=== PATIENT | female | born 1950 | race Caucasian/White ===

== ENCOUNTER 2020-12-23 11:54 | Emergency (ER) | payer OTHER ==
--- OUTSIDE RECORDS SUMMARY | 2020-12-23 11:57 | XMS REPORT | Continuity of Care Document ---
:1950 Author Organization [facility] t Address [address] [place] [id number] Care Team Providers Name Role Phone Radiology Attending Clinician Unavailable Doctor Unassigned, Name Attending Clinician Unavailable Shahbaz GARCIA Attending Clinician Problems Condition Condition Condition Status Onset Resolution Last Treating Co mments Source Name Details Category Date Date Treatment Clinician Date Abnormal Abnormal Problem [facility] Treva kes - test test Memoria result result l [facility] Chronic Chronic Problem Active [facility] pain pain [facility] - syndrome syndrome Memori a l [facility] Right Right Problem Active [facility] upper upper [facility] - quadrant quadrant Memori a abdominal abdominal l pain pain [facility] Syncope, Syncope, Problem Active [facility] unspecifie unspecifie Treva kes - d syncope d syncope Bruce hardik type type l [facility] Worsening Worsening Problem Active [facility] headaches headaches [facility] - [facility] Forgetfuln Forgetfuln Problem Active [facility] ess ess [facility] Fibromyalg Fibromyalg Problem Active [facility] ia ia [facility] Polyarthra Polyarthra Problem Active [facility] lgia lgia [facility] Seasonal Seasonal Problem Active [facility] allergies allergies [facility] - [facility]oria [facility] Anxiety Anxiety Problem Active [facility] Burping Burping Problem Active [facility] Bloating Bloating Problem [facility] Hypertensi Hypertensi Problem Active [facility] on, on, [facility] - unspecifie unspecifie Me moria d type d type l [facility] Prediabete Prediabete Problem Active [facility] Serum Serum Problem Active [facility] creatinine creatinine Treva kes - raised raised Memoria l [facility]ics Hypothyroi Hypothyroi Problem Active [facility] dism, dism, [facility] - unspecifie unspecifie Me moria d type d type l [facility] Asthma, Asthma, Problem Active [facility] unspecifie unspecifie Treva kes - d asthma d asthma Memori a severity, severity, l unspecifie unspecifie Ou tpati d whether d whether ent complicate complicate Cl inics d, d, unspecifie unspecifie d whether d whether persistent persistent Hyperlipid Hyperlipid Problem Active [facility] emia, emia, [facility] - unspecifie unspecifie Me moria d d l hyperlipid hyperlipid Ou tpati emia type emia type ent Clinics Lightheade Lightheade Problem Active [facility] dness dness [facility] Other Other Problem Active [facility] chronic chronic [facility] - pain pain Memoria l [facility] Low back Low back Problem Active [facility] pain pain [facility] Depression Depression Problem Active [facility] screening screening [facility] - Memoria l [facility] Allergic Allergic Problem Active [facility] rhinitis, rhinitis, [facility] - unspecifie unspecifie Me moria d d l seasonalit seasonalit Ou tpati y, y, ent unspecifie unspecifie Cl inics d trigger d trigger Dystonia Dystonia Problem Active [facility]ics Pain in Pain in Problem Active [facility] right knee right knee Treva kes - [facility]oria [facility] Neck pain Neck pain Problem Active [facility] Pain in Pain in Problem Active [facility] left hip left hip [facility] Pain in Pain in Problem Active [facility] left knee left knee [facility] - Memoria l [facility] Pain in Pain in Problem Active [facility] right hip right hip [facility] - Memoria l [facility] Pain in Pain in Problem Active [facility] thoracic thoracic [facility] - spine spine Memoria l [facility] Allergies, Adverse Reactions, Alerts Allergy Allergy Status Severity Reaction(s) Onset Inactive Treating Comm ents Source Name Type Date Date Clinician tramadol Adverse Active itching and [facility] Reaction diarrhea [facility] Cymbalta Adverse Active elevated [facility] Reaction serotinin [facility] - levels Memoria (poisoning) l [facility] Medications Ordered Filled Start Stop Current Ordering Indication Dosage Frequency Signature Comments Components Source Medication Medication Date Date Medication? Clinician (SIG) Name Name Rosuvastati Rosuvastati Yes Zoe [address] [facility] n Calcium n Calcium 6-04 Millender [facility] - 00:00: [facility]oria 00 l [facility] Amlodipine Amlodipine Yes Zoe [address] [facility] Besylate Besylate 4-06 Millender Treva kes - 00:00: Memoria 00 l [facility] Losartan Losartan Yes Zoe [address] [facility] Potassium-H Potassium-H 4- Millender [facility] - CTZ CTZ 00:00: Memoria 00 [facility] Symbicort Symbicort 2019- No Zoe [address] 4-06 12- Millender [facility] - 00:00: 00:00 Memoria 00 :00 [facility] Irbesartan Irbesartan Yes Zoe [address] [facility] [address] Millender [facility] Dicyclomine Dicyclomine Yes Zoe [address] [facility] [address] HCl HCl Millender as needed [facility] - for Memoria stomach l pain [facility] ProAir HFA ProAir HFA Yes Zoe [address] Millender needed [facility] Citalopram Citalopram Yes Zoe [address] [facility] [address] Hydrobromid Hydrobromid Millender [facility] - e e [facility]oria l [facility] Levothyroxi Levothyroxi Yes Zoe [address] [facility] [address] ne Sodium ne Sodium Millender on an [facility] - empty Memoria stomach in l the [facility] Curcumin 95 Curcumin 95 Yes Zoe [address] Millender [facility] Procedures This patient has no known procedures. Encounters Start End Encounter Admission Attending Care Care Encounter Source Date/Time Date/Time Type Type Clinicians Facility Department ID 2020-06-29 2020-06-29 [facility] Radiology [facility] [id number] 08:49:11 23:59:00 Encounter [place] [id number] [place] [id number] [place] [id number] 2020-06-29 2020-06-29 Orders Doctor ARLETTE [id number] 00:00:00 00:00:00 Only Unassigned, ZACHARIAH [id number] [place] [id number] 2019-08-03 2019-08-03 [facility] [id number] 10:30:00 23:59:00 Encounter , [place] [id number] Yael [place] [id number] [facility] [id number] 2019-08-03 2019-08-03 Orders Doctor ARLETTE [id number] 00:00:00 00:00:00 Only Unassigned, ZACHARIAH [id number] [place] [id number] 2019-07-08 2019-07-08 [facility] [id number] [address] 10:53:00 10:53:00 [facility] 2019-01-12 2019-01-12 [facility] Radiology [facility] [id number] 14:00:00 23:59:00 Encounter [place] [id number] [place] [id number] [place] [id number] 2019-01-09 2019-01-09 [facility] [id number] 10:00:00 10:00:00 [facility] 2018-07-31 2018-07-31 [facility] [id number] 11:00:00 11:00:00 [facility] ent [facility] 2018-05-06 2018-05-06 [facility] [id number] 13:49:00 13:49:00 t [facility] Medicine Outpati ent Clinics 2018-02-19 2018-02-19 [facility] [id number] 13:44:00 13:44:00 t [facility] Medicine Outpati ent Clinics 2018-02-14 2018-02-14 [facility] [id number] 13:01:00 13:01:00 t [facility] Medicine Outpati ent Clinics 2018-02-13 2018-02-13 [facility] [id number] 11:30:00 11:30:00 t [facility] Medicine Outpati ent Clinics 2018-01-07 2018-01-07 [facility] [id number] 10:59:00 10:59:00 t [facility] Medicine Outpati ent Clinics 2017-12-23 2017-12-23 [facility] [id number] 15:10:00 15:10:00 t [facility] Medicine Outpati ent Clinics 2017-12-16 2017-12-16 [facility] [id number] 15:35:00 15:35:00 t [facility] Medicine Outpati ent Clinics 2017-12-13 2017-12-13 [facility] [id number] 23:19:00 23:19:00 t [facility] Medicine Outpati ent Clinics 2017-12-13 2017-12-13 [facility] [id number] 12:14:00 12:14:00 t [facility] l Outpati ent Clinics 2017-12-13 2017-12-13 [facility] [id number] 11:30:00 11:30:[address] [facility] Medicine Outpati ent Clinics Results This patient has no known results.
--- NOTE | 2020-12-23 13:45 | ER ---
Nurse's Notes [facility] Name: Laura Amador Age: 70 yrs Sex: Female : 1950 Arrival Date: 12/23/2020 Time: 11:57 Bed Treatment Private MD: Diagnosis: Laceration without foreign body of right forearm, initial encounter Presentation: 12/23 12:08 Chief complaint: Patient states: i cut my my RIGHT forearm, my dog was playing tug of tw2 war with me and his claw just took the skin away on Saturday. no redness up my arm, i just hansnt healed. i tried putting the skin back over it and it is just not taking it. so i wanted to get it checked out. Coronavirus screen: At this time, the client does not indicate any symptoms associated with coronavirus-19. Ebola Screen: Patient denies travel to an Ebola-affected area in the 21 days before illness onset. Complicating Factors: There are no complicating factors for this patient. Initial Sepsis Screen: Does the patient meet any 2 criteria? No. Patient's initial sepsis screen is negative. Does the patient have a suspected source of infection? No. Patient's initial sepsis screen is negative. Risk Assessment: Do you want to hurt yourself or someone else? Patient reports no desire to harm self or others. Onset of symptoms was December 23, 2020. 12:08 Method Of Arrival: Ambulatory tw2 12:08 Acuity: ROJELIO 4 tw2 Triage Assessment: 12:11 General: Appears in no apparent distress. obese, well groomed, Behavior is calm, tw2 cooperative, appropriate for age. Pain: Complains of pain in right arm. Injury Description: Laceration sustained to right arm was sustained 2 days ago. is bleeding no active bleeding noted. Historical: - Allergies: 12:10 No Known Allergies; tw2 - PMHx: 12:10 Hypertensive disorder; Hypothyroidism; tw2 - Immunization history:: Adult Immunizations. - Social history:: Smoking status: . Screenin:59 Abuse screen: Denies threats or abuse. Nutritional screening: No deficits noted. tw2 Tuberculosis screening: No symptoms or risk factors identified. Fall Risk None identified. Assessment: 14:00 Reassessment: Patient appears in no apparent distress at this time. No changes from tw2 previously documented assessment. Patient and/or family updated on plan of care and expected duration. Pain level reassessed. Patient is alert, oriented x 3, equal unlabored respirations, skin warm/dry/pink. Musculoskeletal: Range of motion: intact in all extremities. Injury Description: appears to be a skin tear. 14:00 Injury Description: Laceration is jagged. tw2 Vital Signs: 12:08 BP 132 / 55; Pulse 81; Resp 18; Temp 97.9(TE); Pulse Ox 100% on R/A; tw2 ED Course: 11:57 Patient arrived in ED. mr 12:10 Triage completed. tw2 12:11 Arm band placed on. tw2 12:41 Cornelia Lanza, FILI is Primary Nurse. iw 12:41 Bed in low position. Call light in reach. tw2 13:13 Sergio Coates PA is PHCP. cp 13:13 Sergio Walker MD is Attending Physician. cp 14:00 No provider procedures requiring assistance completed. Patient did not have IV access tw2 during this emergency room visit. Administered Medications: 13:45 Drug: Tetanus-Diphtheria Toxoid Adult 0.5 ml {Crisis Counselor: [employer]. Exp: iw 08/07/2021. Lot #: [id number]. } Route: IM; Site: left deltoid; 19:15 Follow up: Response: No adverse reaction iw Outcome: 13:44 Discharge ordered by . cp 14:00 Discharged to home ambulatory. tw2 14:00 Condition: stable 14:00 Discharge instructions given to patient, Instructed on discharge instructions, follow up and referral plans. medication usage, wound care, Demonstrated understanding of instructions, follow-up care, medications, wound care, Prescriptions given X 2. 14:01 Patient left the ED. tw2 Signatures: Kisha Mckeon Cornelia Lanza, RN RN iw Sergio Coates PA PA cp Wise, Tara, RN RN tw2 Corrections: (The following items were deleted from the chart) 12:11 12:08 Chief complaint: Patient states: i cut my my RIGHT forearm, my dog was playing tw2 tug of war with me and his claw just took the skin away. no redness up my arm, i just hansnt healed. i tried putting the skin back over it and it is just not taking it. so i wanted to get it checked out tw2
--- NOTE | 2020-12-23 13:45 | EDPHYS ---
Physician Documentation [facility] Name: Laura Amador Age: 70 yrs Sex: Female : 1950 Arrival Date: 12/23/2020 Time: 11:57 Bed Treatment Private MD: ED Physician Sergio Walker HPI: 12/23 13:30 This 70 yrs old Female presents to ER via Ambulatory with complaints of cp Laceration To Arm. 13:30 The patient has a laceration occurred at home, The injury was accidental injury from cp claw of pet dog. The laceration(s) is(are) located on the right forearm. Onset: The symptoms/episode began/occurred 5 day(s) ago. 13:30 Associated signs and symptoms: Pertinent negatives: heavy bleeding, suspected foreign cp body. Historical: - Allergies: 12:10 No Known Allergies; tw2 - PMHx: 12:10 Hypertensive disorder; Hypothyroidism; tw2 - Immunization history:: Adult Immunizations. - Social history:: Smoking status: . ROS: 13:35 Skin: Positive for laceration(s), of the right forearm. cp Exam: 13:40 Constitutional: The patient appears in no acute distress, alert, awake, non-toxic, well cp developed, well nourished. 13:40 Head/Face: Normocephalic, atraumatic. cp 13:40 Chest/axilla: Inspection: normal. 13:40 Cardiovascular: Rate: normal. 13:40 Respiratory: the patient does not display signs of respiratory distress, Respirations: normal. 13:40 Skin: injury, that can be described as irregular, without bleeding, mild erythema, skin tear. Vital Signs: 12:08 BP 132 / 55; Pulse 81; Resp 18; Temp 97.9(TE); Pulse Ox 100% on R/A; tw2 MDM: 13:14 Patient medically screened. josué 13:40 Differential diagnosis: superficial laceration, cellulitis, abscess. cp 13:43 Data reviewed: vital signs, nurses notes, and as a result, I will discharge patient. cp 13:44 Counseling: I had a detailed discussion with the patient and/or guardian regarding: the cp historical points, exam findings, and any diagnostic results supporting the discharge/admit diagnosis, to return to the emergency department if symptoms worsen or persist or if there are any questions or concerns that arise at home. 13:44 Response to treatment: the patient's symptoms have mildly improved after treatment, and cp as a result, I will discharge patient. 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 Exp: iw 08/07/2021. Lot #: [id number]. } Route: IM; Site: left deltoid; 19:15 Follow up: Response: No adverse reaction iw Disposition: 13:50 Chart complete. cp 16:04 Co-signature as Attending Physician, Sergio Walker MD I agree with the assessment and josué plan of care. Disposition Summary: 12/23/20 13:44 Discharge Ordered Location: Home cp Problem: new cp Symptoms: have improved cp Condition: Stable cp Diagnosis - Laceration without foreign body of right forearm, initial encounter cp Followup: cp - With: Private Physician - When: 2 - 3 days - Reason: Worsening of condition Discharge Instructions: - Discharge Summary Sheet cp - Skin Tear cp Forms: - Medication Reconciliation Form cp - Thank You Letter cp - Antibiotic Education cp - Prescription Opioid Use cp Prescriptions: - mupirocin 2 % Topical ointment - apply 1 application by TOPICAL route 3 times per day for 14 days; 1 tube; cp Refills: 0, Product Selection Permitted - Doxycycline Hyclate 100 mg Oral Tablet - take 1 tablet by ORAL route every 12 hours; 20 tablet; Refills: 0, Product cp Selection Permitted Signatures: Sergio Walker MD MD cha Williams, Irene RN Sergio Lutz PA PA cp Wise, Tara RN RN tw2 Corrections: (The following items were deleted from the chart) 23:28 13:05 Skin: Positive for laceration(s), of the right forearm, cp cp
[2020-12-23] MEDS ORDERED: TETANUS & DIPHTHERIA TOX,ADULT 0.5 ML VIAL ONE (13:53)
[2020-12-23 14:06] VITALS: BP 132/55; TEMP 97.9; O2SAT 100
== END 2020-12-23 14:01 | disposition home or self-care (01) ==
LOC: ER 11:54
DX: S51.811A Laceration without foreign body of right forearm, initial encounter (principal); Z23 Encounter for immunization; W54.8XXA Other contact with dog, initial encounter; I10 Essential (primary) hypertension; E03.9 Hypothyroidism, unspecified
CPT/HCPCS: 90471; 90714; 99283

== ENCOUNTER 2024-01-21 13:45 | Emergency (ER) | payer OTHER ==
--- OUTSIDE RECORDS SUMMARY | 2024-01-21 13:53 | XMS REPORT | Continuity of Care Document ---
Author Name Unknown Address [address] [facility] [address] [place] [address] [facility] [address] [facility] [place] [address] Care Team Providers Care Crystal Grinder Name Role Phone Moraima Shaw Primary Care Physician Zoe Rogers Attending Clinician Unavailable Kia Solares Attending Clinician Unavailable Alirio GARCIA PhD, Romina Attending Clinician [phone] ROMINA AMEZQUITA Attending Clinician Unavailabl e Radiology Attending Clinician Unavailable RADIOLOGY Attending Clinician Unavailable Doctor Unassigned, Martell Attending Clinician U navailable MORAIMA SHAW Attending Clinician Un available Shahbaz GARCIA, Moraima Attending Clinician Kia Solares Admitting Clinician Unavailable MORAIMA SHAW Admitting Clinician Un available Payers Payer Name Policy Type Policy Number Effective Date Expirati on Date Source [employer] MED[employer]ARE PPO [id number] 00:00:00 Problems Condition Name Condition Details Condition Category Status Onset Date Resolution Date Last Treatment Date Treating Clinician Comments Source Asthma Asthma Disease Active 10-14 00:00: 00 [facility] Hyperlipid emia Hyperlipid emia Disease Active 10-14 00:00: 00 [facility] Degenerati ve disc disease, cervical Degenerati ve disc disease, cervical Disease Active 10-14 00:00: 00 Overview: With cervicoge josh headaches [facility] Osteoarthr itis Osteoarthr itis Disease Active 10-14 00:00: 00 [facility] 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 10-14 00:00: 00 [facility] Pain Pain Disease Active 10-14 00:00: 00 [facility] Hypertensi on Hypertensi on Disease Active 10-14 00:00: 00 [facility] Hypothyroi d Hypothyroi d Disease Active 10-14 00:00: 00 [facility] Tendinitis Tendinitis Disease Active 10-14 00:00: 00 [facility] Neuropathy Neuropathy Disease Active 10-14 00:00: 00 Overview: Axonal and demylinat ing [facility] No known active problems No known active problems Disease [facility] Allergies, Adverse Reactions, Alerts Allergy Name Allergy Type Status Severity Reaction(s) Onset Date Inactive Date Treating Clinician Comments Source Duloxeti ne Hcl Propensi ty to adverse reaction s Active 2021-05 00:00: 00 Weakness in the muscles [facility] Tramadol Propensi ty to adverse reaction s Active Itching 2021-05 00:00: 00 [facility] n Propensi ty to adverse reaction to drug Active 10-12 00:00: 00 Magan Johnson Cymbalta - Oral Propensi ty to adverse reaction to drug Active 3-01 00:00: 00 Magan Johnson Cymbalta Propensi ty to adverse reaction to drug Active 2020-0 2-03 00:00: 00 Magan Johnson tramadol Adverse Reaction Active itching and diarrhea [facility] Cymbalta Adverse Reaction Active elevated serotinin levels (poisoning) [facility] NO KNOWN ALLERGIE S Drug Class Active [facility] Social History Social Habit Start Date Stop Date Quantity Comments Source Exposure to SARS-CoV-2 (event) Not sure [facility] Alcohol intake 2014-10-14 00:00:00 2014-10-14 00:00:00 Current non-drinker of alcohol (finding) [facility] Tobacco use and exposure 2014-10-14 00:00:00 2014-10-14 00:00:00 Never used [facility] Sex Ass[birth year] At 1950 00:00:00 1950 00:00:00 [facility] Smoking Status Start Date Stop Date Source Tobacco smoking consumption unknown [facility] Never smoker [facility] Medications Ordered Medication Name Filled Medication Name Start Date Stop Date Current Medication? Ordering Clinician Indication Dosage Frequency Signature (SIG) Comments Components Source rosuvastati n 10 mg tablet 2023-0 8-14 00:00: 00 Yes mg Magan Johnson irbesartan 150 mg tablet 2023-0 8-14 00:00: 00 Yes mg Magan Johnson citalopram 20 mg tablet 2023-0 8-14 00:00: 00 Yes 1mg Magan Johnson famotidine 20 mg tablet 2023-0 8-14 00:00: 00 Yes 1mg Magan Johnson Synthroid 88 mcg tablet 2023-0 8-14 00:00: 00 Yes 1mcg Magan Johnson ROSUVASTATI N 10MG 2023-0 4-17 00:00: 00 Yes Magan Johnson irbesartan 150 mg tablet 0 4-15 00:00: 00 Yes mg Magan Johnson rosuvastati n 10 mg tablet 0 4-15 00:00: 00 Yes mg Magan Johnson citalopram 10 mg tablet 0 4-15 00:00: 00 Yes 1mg Magan Johnsno Synthroid 88 mcg tablet 2023-0 4-15 00:00: 00 Yes 1mcg Magan Johnson TAKE 1 TABLET BY MOUTH DAILY 3-08 00:00: 00 Yes Magan Johnson BREZTRI AERO SPHERE INH 2-21 00:00: 00 Yes Magan Johnson INHALE 1 PUFF TWICE DAILY. RINSE MOUTH AFTER USE. 2- 00:00: 00 Yes 110 Magan Johnson 1ST TWO WEEKS 0.25 MG WEEKLY THEN0 0.5 Q WEEKLY 2-12 00:00: 00 10-08 00:00 :00 No 23 Magan Johnson levothyroxi ne 88 mcg tablet 2022-05 2-28 00:00: 00 Yes mcg Magan Johnson citalopram 10 mg tablet 2022-05 1-18 00:00: 00 Yes mg Magan Johnson irbesartan 150 mg tablet 2022-05 00:00: 00 Yes mg Magan Johnson TAKE 2 TABLETS BY MOUTH DAILY 2022-05 1 00:00: 00 Yes Magan Johnson TAKE 1 TABLET BY MOUTH DAILY 2022-05 00:00: 00 Yes Magan Johnson TAKE 1 TABLET BY MOUTH 3 TIMES DAILY 2022-05 0-26 00:00: 00 10-08 00:00 :00 No [id number] Magan Johnson DEXAMETHASO N 2MG 2022-05 0-09 00:00: 00 Yes Magan Johnson ALBUTEROL PV HFA 200 INH 2022-05 0-02 00:00: 00 Yes Magan Johnson TAKE 1 TABLET BY MOUTH DAILY 9-20 00:00: 00 Yes Magan Johnson ALBUTEROL PV HFA 200 INH 9-14 00:00: 00 Yes Magan Johnson TAKE 1 TABLET DAILY. 9-08 00:00: 00 10-08 00:00 :00 No 10 Magan Johnson ALBUTEROL PV HFA 200 INH 8-02 00:00: 00 Yes Magan Johnson rosuvastati n 10 mg tablet -29 00:00: 00 Yes mg Magan Johnson IRBESARTAN 150MG 7-12 00:00: 00 Yes Magan Johnson FAMOTIDINE 40MG 6-24 00:00: 00 Yes Magan Johnson TAKE 1 TABLET BY MOUTH DAILY 2023-0 6-23 00:00: 00 Yes Magan Johnson CITALOPRAM 10MG 2022-0 6-22 00:00: 00 Yes [id number] Magan Johnson ALBUTER 3ML 0.083% 2022-0 6-22 00:00: 00 Yes 83 Magan Johnson ALBUTEROL PV HFA 200 INH 2022-0 5-22 00:00: 00 Yes Magan Johnson ALBUTER 3ML 0.083% 2022-0 5-05 00:00: 00 Yes Magan Johnson LEVOTHYROXI N 88MCG 0 4-28 00:00: 00 Yes Magan Johnson ALBUTER 3ML 0.083% 0 4-04 00:00: 00 Yes 83 Magan Johnson PANTOPRAZOL E 40MG DR 0 4- 00:00: 00 Yes [id number] Magan Johnson CITALOPRAM 10MG 2022-0 3-28 00:00: 00 Yes Magan Johnson TAKE 1 TABLET DAILY. 0 3-27 00:00: 00 - 00:00 :00 No 10 Magan Johnson ROSUVASTATI N 10MG 2022-0 3-12 00:00: 00 Yes Magan Johnson PANTOPRAZOL E [address]MG DR 0 3-07 00:00: 00 Yes Magan Johnson TAKE 1 TABLET BY MOUTH DAILY 2022-0 3-06 00:00: 00 Yes Magan Johnson ALBUTER 3ML 0.083% 0 2-21 00:00: 00 Yes Magan Johnson ALBUTEROL PV HFA 200 INH 0 2-18 00:00: 00 Yes Magan Johnson IBESARTAN 150 MG HALF TABLET DAILY 2022-0 2-13 00:00: 00 - 00:00 :00 No 150 Magan Johnson ROSUVASTATI N 10MG 2022-0 2-02 00:00: 00 Yes [id number] Magan Johnson LEVOTHYROXI N 88MCG 2022-0 1-17 00:00: 00 Yes [id number] Magan Johnson aspirin 81 MG chewable tablet 1 2-07 14:38: 42 Yes 81mg Chew 81 mg. [facility] ergocalcife rol (Vitamin D-2) 1.25 MG ([id number] UT) capsule 2021-05 14:38: 42 Yes 1000mg Take 1,000 mg by mouth. [facility] FOLLOW PACKAGE DIRECTIONS 2021-05 00:00: 00 Yes Magan Johnson INHALE 2 PUFFS BY MOUTH EVERY 4 HOURS NEEDED FOR SHORTNESS OF BREATH 2021-05 00:00: 00 Yes Magan Johnson TAKE 1 TABLET BY MOUTH 2 TO 3 TIMES DAILY NEEDED FOR PAIN 2021-05 00:00: 00 Yes Magan Johnson MONTELUKAST 10MG 2021-05 00:00: 00 Yes Magan Johnson LEVOTHYROXI N 88MCG 2021-05 024 00:00: 00 Yes [id number] Magan Johnson ALPRAZOLAM 2MG 2021-05 0 00:00: 00 Yes 2000 Magan Johnson aspirin 81 MG chewable tablet 2021-05 13:41: 22 Yes 81mg Chew 81 mg. [facility] ergocalcife rol (Vitamin D-2) 1.25 MG ([id number] RI) capsule 2021-05 13:41: 22 Yes 1000mg Take 1,000 mg by mouth. [facility] irbesartan (Avapro) 150 MG tablet 2021-05 00:00: 00 Yes [facility] citalopram (CeleXA) 10 MG tablet 02-20 00:00: 00 Yes 10mg QD Take 10 mg by mouth 1 (one) time each day. [facility] CITALOPRAM HYDROBROMID E 10MG 02-20 00:00: 00 10-08 00:00 :00 No [id number] Magan Johnson Dose Unknown 02-15 00:00: 00 Yes Magan Johnson Dose Unknown 02-15 00:00: 00 No IRBESARTAN 150MG 02-03 00:00: 00 Yes [id number] Magan Johnson PREDNISONE 10MG 01-30 00:00: 00 Yes [id number] Magan Johnson TAKE 1 TABLET BY MOUTH TWICE DAILY 01-30 00:00: 00 Yes Magan Johnson ROSUVASTATI N CALCIUM 10MG 01-16 00:00: 00 Yes [id number] Magan Johnson &lt 2022-0 8- 00:00: 00 Yes 10 Magan F Alex Dose Unknown 2021-0 8- 00:00: 00 Yes 25 Maganshima Johnson &lt 2022-0 8- 00:00: 00 Yes Magan Johnson INHALE 2 PUFFS BY MOUTH TWICE DAILY 2021-0 8- 00:00: 00 Yes Magan Johnson Dose Unknown 2021-0 8- 00:00: 00 Yes Magan Johnson CIPROFLOXAC IN HYDROCHLORI 0.3% OP ELIAZAR 2021-0 8- 00:00: 00 Yes 300 Magan Johnson &lt 2021-0 8 00:00: 00 No 10 Dose Unknown 2021-0 8 00:00: 00 No 25 &lt 2022-0 8- 00:00: 00 No INHALE 2 PUFFS BY MOUTH TWICE DAILY 2021-0 8- 00:00: 00 No Dose Unknown 2021-0 8 00:00: 00 No &lt 2022-0 8 00:00: 00 No 10 Dose Unknown 2021-0 8 00:00: 00 No 25 &lt 2022-0 8 00:00: 00 No INHALE 2 PUFFS BY MOUTH TWICE DAILY 2021-0 8- 00:00: 00 No Dose Unknown 2021-0 8 00:00: 00 No Dose Unknown 2021-0 8 00:00: 00 Yes 875 Magan Johnson INHALE 1 PUFF BY MOUTH DAILY 2021-0 8 00:00: 00 Yes Magan Johnson Dose Unknown 2021-0 8 00:00: 00 Yes 20 Magan Johnson &lt 2022-0 8- 00:00: 00 Yes Magan Johnson Dose Unknown 2021-0 8- 00:00: 00 No 875 INHALE 1 PUFF BY MOUTH DAILY 2021-0 8- 00:00: 00 No Dose Unknown 2021-0 8 00:00: 00 No 20 &lt 2022-0 8- 00:00: 00 No Dose Unknown 2021-0 8- 00:00: 00 No 875 INHALE 1 PUFF BY MOUTH DAILY 2021-0 8- 00:00: 00 No Dose Unknown 0 8 00:00: 00 No 20 &lt 2021-0 8-02 00:00: 00 No APPLY EXTERNALLY TO THE AFFECTED AREA THREE TIMES DAILY FOR 14 DAYS 0 12-22 00:00: 00 Yes Magan Johnson Dose Unknown 0 12-22 00:00: 00 Yes Magan Johnson APPLY EXTERNALLY TO THE AFFECTED AREA THREE TIMES DAILY FOR 14 DAYS 0 12-22 00:00: 00 No Dose Unknown 0 12-22 00:00: 00 No APPLY EXTERNALLY TO THE AFFECTED AREA THREE TIMES DAILY FOR 14 DAYS 0 12-22 00:00: 00 No Dose Unknown 0 12-22 00:00: 00 No Ventolin HFA 90 mcg/actuati on aerosol inhaler 0 12-21 00:00: 00 Yes 1mcg/ac tuation Magan Johnson Trelegy Ellipta 100 mcg-62.5 mcg-25 mcg powder for inhalation 0 12-21 00:00: 00 Yes 1mcg Magan Johnson montelukast 10 mg tablet 0 12-21 00:00: 00 Yes 1mg Magan Johnson citalopram 10 mg tablet 0 12-21 00:00: 00 Yes 1mg Magan Johnson rosuvastati n 10 mg tablet 0 12-21 00:00: 00 Yes mg Mgaan Johnson levothyroxi ne 88 mcg tablet 12-21 00:00: 00 Yes 1mcg Magan Johnson &lt 0 12-21 00:00: 00 Yes Magan Johnson &lt 0 12-21 00:00: 00 Yes 20 Magan Johnson Dose Unknown 0 12-21 00:00: 00 Yes 875 Magan Johnson ALBUTEROL SULFATE HFA HFA 200 INH 0 12-21 00:00: 00 Yes [id number] Magan Johnson &lt 0 12-21 00:00: 00 No 10 &lt 2021-0 12-21 00:00: 00 No 20 TAKE 1 TABLET BY MOUTH IN THE MORNING 0 12-21 00:00: 00 No 88 Ventolin HFA 90 mcg/actuati on aerosol inhaler 12-21 00:00: 00 No 1mcg/ac tuation Trelegy Ellipta 100 mcg-62.5 mcg-25 mcg powder for inhalation 12-21 00:00: 00 No 1mcg montelukast 10 mg tablet 12-21 00:00: 00 No 1mg citalopram 10 mg tablet 12-21 00:00: 00 No 1mg rosuvastati n 10 mg tablet 12-21 00:00: 00 No mg levothyroxi ne 88 mcg tablet 12-21 00:00: 00 No 1mcg &lt 12-21 00:00: 00 No Dose Unknown 12-21 00:00: 00 No 875 Ventolin HFA 90 mcg/actuati on aerosol inhaler 12-21 00:00: 00 No 1mcg/ac tuation Trelegy Ellipta 100 mcg-62.5 mcg-25 mcg powder for inhalation 12-21 00:00: 00 No 1mcg montelukast 10 mg tablet 12-21 00:00: 00 No 1mg citalopram 10 mg tablet 12-21 00:00: 00 No 1mg rosuvastati n 10 mg tablet 12-21 00:00: 00 No mg levothyroxi ne 88 mcg tablet 12-21 00:00: 00 No 1mcg &lt 12-21 00:00: 00 No &lt 12-21 00:00: 00 No 10 &lt 12-21 00:00: 00 No 20 TAKE 1 TABLET BY MOUTH IN THE MORNING 12-21 00:00: 00 No 88 Dose Unknown 12-21 00:00: 00 No 875 TAKE 1 TABLET BY MOUTH EVERY DAY 12-18 00:00: 00 Yes Magan Johnson INHALE 1 PUFF BY MOUTH EVERY DAY 12-18 00:00: 00 Yes Magan Johnson &lt 12-15 00:00: 00 Yes Magan Johnson Dose Unknown 12-15 00:00: 00 Yes 875 Magan Johnson &lt 0 12-15 00:00: 00 No Dose Unknown 0 12-15 00:00: 00 No 875 &lt 0 12-15 00:00: 00 No Dose Unknown 0 12-15 00:00: 00 No 875 TAKE 1 TABLET BY MOUTH TWICE DAILY 12-14 00:00: 00 Yes Magan Johnson &lt 0 12-14 00:00: 00 Yes 10 Magan Johnson &lt 0 12-14 00:00: 00 Yes 20 Magan Johnson Dose Unknown 12-14 00:00: 00 Yes Magan Johnson Dose Unknown 12-14 00:00: 00 Yes Magan Johnson &lt 0 12-14 00:00: 00 Yes Magan Johnson &lt 0 12-14 00:00: 00 Yes Magan Johnson INHALE 1 PUFF BY MOUTH DAILY 12-14 00:00: 00 Yes Magan Johnson levothyroxi ne (Synthroid, Levoxyl) 88 MCG tablet 12-14 00:00: 00 Yes 88ug Take 88 mcg by mouth 1 (one) time each day in the morning. [facility] TAKE 1 TABLET BY MOUTH TWICE DAILY 12-14 00:00: 00 No &lt 0 12-14 00:00: 00 No 10 &lt 0 12-14 00:00: 00 No 20 Dose Unknown 0 12-14 00:00: 00 No Dose Unknown 12-14 00:00: 00 No &lt 0 12-14 00:00: 00 No &lt 0 12-14 00:00: 00 No INHALE 1 PUFF BY MOUTH DAILY 12-14 00:00: 00 No TAKE 1 TABLET BY MOUTH TWICE DAILY 12-14 00:00: 00 No &lt 0 12-14 00:00: 00 No 10 &lt 0 12-14 00:00: 00 No 20 Dose Unknown 0 12-14 00:00: 00 No Dose Unknown 0 7-21 00:00: 00 No &lt 2021-0 7-21 00:00: 00 No &lt 2021-0 721 00:00: 00 No INHALE 1 PUFF BY MOUTH DAILY 2021-0 7-21 00:00: 00 No INHALE 2 PUFFS BY MOUTH TWICE DAILY 2021-0 7-19 00:00: 00 Yes Magan Johnson INHALE 2 PUFFS BY MOUTH TWICE DAILY 2021-0 7-19 00:00: 00 No INHALE 2 PUFFS BY MOUTH TWICE DAILY 0 719 00:00: 00 No FLUTICASONE FUROATE/SOPHIA AN 100-25 INH 0 6-24 00:00: 00 Yes Magan Johnson &lt 0 6 00:00: 00 Yes Magan Johnson TAKE 1 TABLET BY MOUTH DAILY 0 6- 00:00: 00 Yes Magan Johnson &lt 0 6 00:00: 00 Yes Magan Johnson TAKE 1 TABLET BY MOUTH TWICE DAILY 0 6 00:00: 00 Yes Magan Johnson &lt 0 6 00:00: 00 Yes Magan Johnson INHALE 2 PUFFS BY MOUTH TWICE DAILY 0 6 00:00: 00 Yes Magan Johnson TAKE 1 TABLET BY MOUTH DAILY 0 6 00:00: 00 Yes Magan Johnson &lt 0 6 00:00: 00 No TAKE 1 TABLET BY MOUTH DAILY 0 6- 00:00: 00 No &lt 2021-0 6 00:00: 00 No TAKE 1 TABLET BY MOUTH TWICE DAILY 2021-0 6- 00:00: 00 No &lt 2021-0 6 00:00: 00 No INHALE 2 PUFFS BY MOUTH TWICE DAILY 0 6- 00:00: 00 No &lt 2021-0 6 00:00: 00 No TAKE 1 TABLET BY MOUTH DAILY 0 6- 00:00: 00 No &lt 2021-0 6 00:00: 00 No TAKE 1 TABLET BY MOUTH TWICE DAILY 2021-0 6- 00:00: 00 No &lt 2021-0 6 00:00: 00 No INHALE 2 PUFFS BY MOUTH TWICE DAILY 0 11-02 00:00: 00 No Breo Ellipta 100 mcg-25 mcg/dose powder for inhalation 0 10-19 00:00: 00 Yes 1mcg/do se Magan Johnson Breo Ellipta 100 mcg-25 mcg/dose powder for inhalation 0 10-19 00:00: 00 No 1mcg/do se Breo Ellipta 100 mcg-25 mcg/dose powder for inhalation 0 10-19 00:00: 00 No 1mcg/do Ventolin HFA 90 mcg/actuati on aerosol inhaler 0 10-16 00:00: 00 Yes 1mcg/ac tuation Magan Johnson irbesartan 150 mg tablet 10-16 00:00: 00 Yes 5mg Magan Johnson citalopram 10 mg tablet 10-16 00:00: 00 Yes 1mg Magan Johnson rosuvastati n 10 mg tablet 10-16 00:00: 00 Yes 1mg Magan Johnson Ventolin HFA 90 mcg/actuati on aerosol inhaler 10-16 00:00: 00 No 1mcg/ac tuation irbesartan 150 mg tablet 0 10-16 00:00: 00 No 5mg citalopram 10 mg tablet 0 10-16 00:00: 00 No 1mg rosuvastati n 10 mg tablet 0 10-16 00:00: 00 No 1mg Ventolin HFA 90 mcg/actuati on aerosol inhaler 0 10-16 00:00: 00 No 1mcg/ac tuation irbesartan 150 mg tablet 0 10-16 00:00: 00 No 5mg citalopram 10 mg tablet 0 10-16 00:00: 00 No 1mg rosuvastati n 10 mg tablet 0 10-16 00:00: 00 No 1mg Ventolin HFA 90 mcg/actuati on aerosol inhaler 0 10-12 00:00: 00 Yes 1mcg/ac tuation Magan Johnson irbesartan 150 mg tablet 0 10-12 00:00: 00 Yes 5mg Magan Johnson citalopram 10 mg tablet 0 -19 00:00: 00 Yes 1mg Magan Johnson rosuvastati n 10 mg tablet 0 -19 00:00: 00 Yes 1mg Magan Johnson Ventolin HFA 90 mcg/actuati on aerosol inhaler 0 -19 00:00: 00 No 1mcg/ac tuation irbesartan 150 mg tablet 0 -19 00:00: 00 No 5mg citalopram 10 mg tablet 0 - 00:00: 00 No 1mg rosuvastati n 10 mg tablet 0 10-12 00:00: 00 No 1mg Ventolin HFA 90 mcg/actuati on aerosol inhaler 0 - 00:00: 00 No 1mcg/ac tuation irbesartan 150 mg tablet 0 10-12 00:00: 00 No 5mg citalopram 10 mg tablet 0 - 00:00: 00 No 1mg rosuvastati n 10 mg tablet 0 10-12 00:00: 00 No 1mg Dose Unknown 2021-0 3-05 00:00: 00 Yes Magan Johnson Dose Unknown 2021-0 3-05 00:00: 00 No Dose Unknown 2021-0 3-05 00:00: 00 No Breo Ellipta 100 mcg-25 mcg/dose powder for inhalation 0 -20 00:00: 00 Yes 1mcg/do se Magan Johnson levothyroxi ne 88 mcg tablet 0 -20 00:00: 00 Yes 1mcg Magan Johnson Breo Ellipta 100 mcg-25 mcg/dose powder for inhalation 0 1-20 00:00: 00 No 1mcg/do se levothyroxi ne 88 mcg tablet 0 1-20 00:00: 00 No 1mcg Breo Ellipta 100 mcg-25 mcg/dose powder for inhalation 0 1-20 00:00: 00 No 1mcg/do se levothyroxi ne 88 mcg tablet 0 1-20 00:00: 00 No 1mcg Symbicort 160 mcg-4.5 mcg/actuati on HFA aerosol inhaler 2021-1 2-16 00:00: 00 Yes 2mcg/ac tuation Magan Johnson Augmentin 875 mg-125 mg tablet 2020-05 00:00: 00 Yes 1mg Magan Johnson Symbicort 160 mcg-4.5 mcg/actuati on HFA aerosol inhaler 2020-05 00:00: 00 No 2mcg/ac tuation Augmentin 875 mg-125 mg tablet 2020-05 00:00: 00 No 1mg Symbicort 160 mcg-4.5 mcg/actuati on HFA aerosol inhaler 2020-05 00:00: 00 No 2mcg/ac tuation Augmentin 875 mg-125 mg tablet 2020-05 00:00: 00 No 1mg Symbicort 160 mcg-4.5 mcg/actuati on HFA aerosol inhaler 2020-05 00:00: 00 Yes 2mcg/ac tuation Magan Johnson Ventolin HFA 90 mcg/actuati on aerosol inhaler 2020-05 00:00: 00 Yes 1mcg/ac tuation Magan Johnson citalopram 10 mg tablet 2020-05 00:00: 00 Yes 1mg Magan Johnson irbesartan 150 mg tablet 2020-05 00:00: 00 Yes 1mg Magan Johnson rosuvastati n 10 mg tablet 2020-05 00:00: 00 Yes 1mg Magan Johnson levothyroxi ne 88 mcg tablet 2020-05 00:00: 00 Yes 1mcg Magan Johnson Symbicort 160 mcg-4.5 mcg/actuati on HFA aerosol inhaler 2020-05 00:00: 00 No 2mcg/ac tuation Ventolin HFA 90 mcg/actuati on aerosol inhaler 2020-05 00:00: 00 No 1mcg/ac tuation citalopram 10 mg tablet 2020-05 00:00: 00 No 1mg irbesartan 150 mg tablet 2020-05 00:00: 00 No 1mg irbesartan 150 mg tablet 2020-05 00:00: 00 No 5mg rosuvastati n 10 mg tablet 2020-05 00:00: 00 No 1mg levothyroxi ne 88 mcg tablet 2020-05 00:00: 00 No 1mcg Symbicort 160 mcg-4.5 mcg/actuati on HFA aerosol inhaler 2020-05 00:00: 00 No 2mcg/ac tuation Ventolin HFA 90 mcg/actuati on aerosol inhaler 2020-05 00:00: 00 No 1mcg/ac tuation citalopram 10 mg tablet 2020-05 00:00: 00 No 1mg irbesartan 150 mg tablet 2020-05 00:00: 00 No 1mg irbesartan 150 mg tablet 2020-05 00:00: 00 No 5mg rosuvastati n 10 mg tablet 2020-05 00:00: 00 No 1mg levothyroxi ne 88 mcg tablet 2020-05 00:00: 00 No 1mcg Symbicort 160 mcg-4.5 mcg/actuati on HFA aerosol inhaler 2020-05 0-08 00:00: 00 Yes 2mcg/ac tuation Magan F Alex Symbicort 160 mcg-4.5 mcg/actuati on HFA aerosol inhaler 2020-05 0-08 00:00: 00 No 2mcg/ac tuation Symbicort 160 mcg-4.5 mcg/actuati on HFA aerosol inhaler 2020-05 0-08 00:00: 00 No 2mcg/ac tuation Symbicort 160 mcg-4.5 mcg/actuati on HFA aerosol inhaler 2020-05 0-07 00:00: 00 Yes 2mcg/ac tuation Magan F Alex rosuvastati n 10 mg tablet 2020-05 0-07 00:00: 00 Yes 1mg Magan F Alex Symbicort 160 mcg-4.5 mcg/actuati on HFA aerosol inhaler 2020-05 0-07 00:00: 00 No 2mcg/ac tuation rosuvastati n 10 mg tablet 2020-05 0-07 00:00: 00 No 1mg Symbicort 160 mcg-4.5 mcg/actuati on HFA aerosol inhaler 2020-05 0-07 00:00: 00 No 2mcg/ac tuation rosuvastati n 10 mg tablet 2020-05 0 00:00: 00 No 1mg citalopram 10 mg tablet 02-20 00:00: 00 Yes 1mg Magan Johnson citalopram 10 mg tablet 02-20 00:00: 00 No 1mg citalopram 10 mg tablet 02-20 00:00: 00 No 1mg levothyroxi ne 88 mcg tablet 12-16 00:00: 00 Yes 1mcg Magan Johnson levothyroxi ne 88 mcg tablet 12-16 00:00: 00 No 1mcg levothyroxi ne 88 mcg tablet 12-16 00:00: 00 No 1mcg citalopram 10 mg tablet 11-17 00:00: 00 Yes 1mg Magan Johnson citalopram 10 mg tablet 11-17 00:00: 00 No 1mg citalopram 10 mg tablet 11-17 00:00: 00 No 1mg Symbicort 160 mcg-4.5 mcg/actuati on HFA aerosol inhaler 10-19 00:00: 00 Yes 2mcg/ac usmanation Magan Johnson Ventolin HFA 90 mcg/actuati on aerosol inhaler 10-19 00:00: 00 Yes 1mcg/ac tuation Magan Johnson irbesartan 150 mg tablet 10-19 00:00: 00 Yes 1mg Magan Johnson citalopram 20 mg tablet 10-19 00:00: 00 Yes 1mg Magan Johnson amlodipine 2.5 mg tablet 10-19 00:00: 00 Yes 1mg Magan Johnson famciclovir 250 mg tablet 10-19 00:00: 00 Yes 1mg Magan Johnson rosuvastati n 10 mg tablet 10-19 00:00: 00 Yes 1mg Magan Johnson levothyroxi ne 88 mcg tablet 10-19 00:00: 00 Yes 1mcg Magan Johnson Symbicort 160 mcg-4.5 mcg/actuati on HFA aerosol inhaler 10-19 00:00: 00 No 2mcg/ac tuation Ventolin HFA 90 mcg/actuati on aerosol inhaler 10-19 00:00: 00 No 1mcg/ac tuation irbesartan 150 mg tablet 10-19 00:00: 00 No 1mg citalopram 20 mg tablet 10-19 00:00: 00 No 1mg amlodipine 2.5 mg tablet 10-19 00:00: 00 No 1mg famciclovir 250 mg tablet 10-19 00:00: 00 No 1mg rosuvastati n 10 mg tablet 10-19 00:00: 00 No 1mg levothyroxi ne 88 mcg tablet 10-19 00:00: 00 No 1mcg Symbicort 160 mcg-4.5 mcg/actuati on HFA aerosol inhaler 10-19 00:00: 00 No 2mcg/ac tuation Ventolin HFA 90 mcg/actuati on aerosol inhaler 10-19 00:00: 00 No 1mcg/ac tuation irbesartan 150 mg tablet 10-19 00:00: 00 No 1mg citalopram 20 mg tablet 10-19 00:00: 00 No 1mg amlodipine 2.5 mg tablet 10-19 00:00: 00 No 1mg famciclovir 250 mg tablet 10-19 00:00: 00 No 1mg rosuvastati n 10 mg tablet 10-19 00:00: 00 No 1mg levothyroxi ne 88 mcg tablet 10-19 00:00: 00 No 1mcg Symbicort 160 mcg-4.5 mcg/actuati on HFA aerosol inhaler 06-19 00:00: 00 Yes 2mcg/ac tuation Magan Johnson Ventolin HFA 90 mcg/actuati on aerosol inhaler 06-19 00:00: 00 Yes 1mcg/ac tuation Magan Johnson irbesartan 150 mg tablet 06-19 00:00: 00 Yes 1mg Magan Johnson citalopram 20 mg tablet 06-19 00:00: 00 Yes 1mg Magan Johnson amlodipine 2.5 mg tablet 06-19 00:00: 00 Yes 1mg Magan Johnson famciclovir 250 mg tablet 06-19 00:00: 00 Yes 1mg Magan Johnson rosuvastati n 10 mg tablet 06-19 00:00: 00 Yes 1mg Magan Johnson levothyroxi ne 88 mcg tablet 06-19 00:00: 00 Yes 1mcg Magan Johnson Symbicort 160 mcg-4.5 mcg/actuati on HFA aerosol inhaler 06-19 00:00: 00 No 2mcg/ac tuation Ventolin HFA 90 mcg/actuati on aerosol inhaler 06-19 00:00: 00 No 1mcg/ac tuation irbesartan 150 mg tablet 06-19 00:00: 00 No 1mg citalopram 20 mg tablet 06-19 00:00: 00 No 1mg amlodipine 2.5 mg tablet 06-19 00:00: 00 No 1mg famciclovir 250 mg tablet 06-19 00:00: 00 No 1mg rosuvastati n 10 mg tablet 06-19 00:00: 00 No 1mg levothyroxi ne 88 mcg tablet 06-19 00:00: 00 No 1mcg Symbicort 160 mcg-4.5 mcg/actuati on HFA aerosol inhaler 06-19 00:00: 00 No 2mcg/ac tuation Ventolin HFA 90 mcg/actuati on aerosol inhaler 06-19 00:00: 00 No 1mcg/ac tuation irbesartan 150 mg tablet 06-19 00:00: 00 No 1mg citalopram 20 mg tablet 06-19 00:00: 00 No 1mg amlodipine 2.5 mg tablet 06-19 00:00: 00 No 1mg famciclovir 250 mg tablet 06-19 00:00: 00 No 1mg rosuvastati n 10 mg tablet 06-19 00:00: 00 No 1mg levothyroxi ne 88 mcg tablet 06-19 00:00: 00 No 1mcg levothyroxi ne 88 mcg tablet 2019-05 00:00: 00 Yes 1mcg Magan Johnson levothyroxi ne 88 mcg tablet 2019-05 00:00: 00 No 1mcg levothyroxi ne 88 mcg tablet 2019-05 00:00: 00 No 1mcg irbesartan 150 mg tablet 2019-05 00:00: 00 Yes 1mg Magan Johnson irbesartan 150 mg tablet 2019-05 00:00: 00 No 1mg irbesartan 150 mg tablet 2019-05 00:00: 00 No 1mg Symbicort 160 mcg-4.5 mcg/actuati on HFA aerosol inhaler 2019-05 00:00: 00 Yes 2mcg/ac tuation Magan Johnson Symbicort 160 mcg-4.5 mcg/actuati on HFA aerosol inhaler 2019-05 00:00: 00 No 2mcg/ac tuation Symbicort 160 mcg-4.5 mcg/actuati on HFA aerosol inhaler 2019-05 00:00: 00 No 2mcg/ac tuation Symbicort 160 mcg-4.5 mcg/actuati on HFA aerosol inhaler 12-08 00:00: 00 Yes 2mcg/ac tuation Magan Johnson Symbicort 160 mcg-4.5 mcg/actuati on HFA aerosol inhaler 12-08 00:00: 00 No 2mcg/ac tuation Symbicort 160 mcg-4.5 mcg/actuati on HFA aerosol inhaler 15 00:00: 00 No 2mcg/ac tuation Symbicort 160 mcg-4.5 mcg/actuati on HFA aerosol inhaler 12-02 00:00: 00 Yes 1mcg/ac tuation Magan Johnson Ventolin HFA 90 mcg/actuati on aerosol inhaler 12-02 00:00: 00 Yes 1mcg/ac tuation Magan Johnson amlodipine 2.5 mg tablet 12-02 00:00: 00 Yes 1mg Magan Johnson irbesartan 150 mg tablet 12-02 00:00: 00 Yes 1mg Magan Johnson citalopram 20 mg tablet 12-02 00:00: 00 Yes 1mg Magan Johnson rosuvastati n 10 mg tablet 12-02 00:00: 00 Yes 1mg Magan Johnson levothyroxi ne 88 mcg tablet 12-02 00:00: 00 Yes 1mcg Magan Johnson Symbicort 160 mcg-4.5 mcg/actuati on HFA aerosol inhaler 12-02 00:00: 00 No 1mcg/ac tuation Ventolin HFA 90 mcg/actuati on aerosol inhaler 12-02 00:00: 00 No 1mcg/ac tuation amlodipine 2.5 mg tablet 12-02 00:00: 00 No 1mg irbesartan 150 mg tablet 12-02 00:00: 00 No 1mg citalopram 20 mg tablet 12-02 00:00: 00 No 1mg rosuvastati n 10 mg tablet 12-02 00:00: 00 No 1mg levothyroxi ne 88 mcg tablet 12-02 00:00: 00 No 1mcg Symbicort 160 mcg-4.5 mcg/actuati on HFA aerosol inhaler 12-02 00:00: 00 No 1mcg/ac tuation Ventolin HFA 90 mcg/actuati on aerosol inhaler 12-02 00:00: 00 No 1mcg/ac tuation amlodipine 2.5 mg tablet 12-02 00:00: 00 No 1mg irbesartan 150 mg tablet 12-02 00:00: 00 No 1mg citalopram 20 mg tablet 12-02 00:00: 00 No 1mg rosuvastati n 10 mg tablet 12-02 00:00: 00 No 1mg levothyroxi ne 88 mcg tablet 12-02 00:00: 00 No 1mcg levothyroxi ne 88 mcg tablet 11-22 00:00: 00 Yes 1mcg Magan Johnson levothyroxi ne 88 mcg tablet 0 6 00:00: 00 No 1mcg levothyroxi ne 88 mcg tablet 11-22 00:00: 00 No 1mcg Symbicort 160 mcg-4.5 mcg/actuati on HFA aerosol inhaler 0 3- 00:00: 00 Yes 1mcg/ac tuation Magan Johnson Ventolin HFA 90 mcg/actuati on aerosol inhaler 0 3- 00:00: 00 Yes 1mcg/ac tuation Magan Johnson amlodipine 2.5 mg tablet 3- 00:00: 00 Yes 1mg Magan Johnson irbesartan 150 mg tablet 3- 00:00: 00 Yes 1mg Magna Johnson citalopram 20 mg tablet 3- 00:00: 00 Yes 1mg Magan Johnson Symbicort 160 mcg-4.5 mcg/actuati on HFA aerosol inhaler 0 3- 00:00: 00 No 1mcg/ac tuation Ventolin HFA 90 mcg/actuati on aerosol inhaler 3-10 00:00: 00 No 1mcg/ac tuation amlodipine 2.5 mg tablet 0 3-10 00:00: 00 No 1mg irbesartan 150 mg tablet 0 3-10 00:00: 00 No 1mg citalopram 20 mg tablet 3-10 00:00: 00 No 1mg Symbicort 160 mcg-4.5 mcg/actuati on HFA aerosol inhaler 0 3-10 00:00: 00 No 1mcg/ac tuation Ventolin HFA 90 mcg/actuati on aerosol inhaler 0 3-10 00:00: 00 No 1mcg/ac tuation amlodipine 2.5 mg tablet 0 3-10 00:00: 00 No 1mg irbesartan 150 mg tablet 3-10 00:00: 00 No 1mg citalopram 20 mg tablet 0 3-10 00:00: 00 No 1mg Symbicort 160 mcg-4.5 mcg/actuati on HFA aerosol inhaler 2020-0 3-05 00:00: 00 Yes 1mcg/ac tuation Magan Johnson Ventolin HFA 90 mcg/actuati on aerosol inhaler 0 3-05 00:00: 00 Yes 1mcg/ac tuation Magan Johnson irbesartan 150 mg tablet 3-05 00:00: 00 Yes 1mg aMgan Johnson citalopram 20 mg tablet 3-05 00:00: 00 Yes 1mg Magan Johnson amlodipine 2.5 mg tablet 3-05 00:00: 00 Yes 1mg Magan Johnson amlodipine 2.5 mg tablet 3-05 00:00: 00 No 1mg Symbicort 160 mcg-4.5 mcg/actuati on HFA aerosol inhaler 3-05 00:00: 00 No 1mcg/ac tuation Ventolin HFA 90 mcg/actuati on aerosol inhaler 3-05 00:00: 00 No 1mcg/ac tuation irbesartan 150 mg tablet 3-05 00:00: 00 No 1mg citalopram 20 mg tablet 3-05 00:00: 00 No 1mg Symbicort 160 mcg-4.5 mcg/actuati on HFA aerosol inhaler 3-05 00:00: 00 No 1mcg/ac tuation Ventolin HFA 90 mcg/actuati on aerosol inhaler 3-05 00:00: 00 No 1mcg/ac tuation irbesartan 150 mg tablet 3-05 00:00: 00 No 1mg citalopram 20 mg tablet 3-05 00:00: 00 No 1mg amlodipine 2.5 mg tablet 3-05 00:00: 00 No 1mg Rosuvastati n Calcium Rosuvastati n Calcium 6- 00:00: 00 Yes Zoe Millender 1 tablet [facility] Amlodipine Besylate Amlodipine Besylate 08-30 00:00: 00 Yes Zoe Millender 1 tablet [facility] Losartan Potassium-H CTZ Losartan Potassium-H CTZ 08-30 00:00: 00 Yes Zoe Millender 1 tablet [facility] Symbicort Symbicort 08-30 00:00: 00 04-27 00:00 :00 No Zoe Millender 2 puffs [facility] rosuvastati n (CRESTOR) 10 mg tablet 11-11 18:02: 42 Yes 10mg Take 10 mg by mouth at bedtime. [facility] losartan-hy drochloroth iazide (HYZAAR) 100-12.5 mg per tablet 11-11 18:02: 42 Yes 1{tbl} Take 1 Tab by mouth daily. [facility] levothyroxi ne (SYNTHROID) 88 mcg tablet 11-11 18:02: 42 Yes 88ug Take 88 mcg by mouth every morning. [facility] albuterol (VENTOLIN HFA) 90 mcg/actuati on inhaler 11-11 18:02: 42 Yes 2{puff} Inhale 2 Puffs every 6 (six) hours as needed for Wheezing or Shortness of Breath. [facility] fluticasone (FLOVENT DISKUS) 50 mcg/actuati on diskus inhaler 11-11 18:02: 42 Yes 1{puff} Inhale 1 Puff as needed. [facility] ERGOCALCIFE ROL, VITAMIN D2, (VITAMIN D ORAL) 11-11 18:02: 42 Yes 1000mg Take 1,000 mg by mouth daily. [facility] Aspirin (ASPERDRINK ) 81 mg TbEF 11-11 18:02: 42 Yes 81mg Take 81 mg by mouth daily. [facility] Irbesartan Irbesartan Yes Zoe Millender 1 tablet [facility] Dicyclomine HCl Dicyclomine HCl Yes Zoe Millender 1 tablet as needed for stomach pain [facility] ProAir HFA ProAir HFA Yes Zoe Millender 2 puffs as needed [facility] Citalopram Hydrobromid e Citalopram Hydrobromid e Yes Zoe Millender 1 tablet [facility] Levothyroxi ne Sodium Levothyroxi ne Sodium Yes Zoe Millender 1 tablet on an empty stomach in the morning [facility] Curcumin 95 Curcumin 95 Yes Zoe Millender 1 gelcap [facility] Immunizations Ordered Immunization Name Filled Immunization Name Date Status Comments Source influenza, seasonal vaccine, quadrivalent, adjuvanted, .5mL dose, preservative-free influenza, seasonal vaccine, quadrivalent, adjuvanted, .5mL dose, preservative-free 2023-04-08 00:00:00 Completed Magan Wolfgang Alex Spikevax 12+ ( formula) Spikevax 12+ ( formula) 2023-04-08 00:00:00 Completed Magan Johnson (Old) Moderna COVID-19 Vaccine Bivalent Booster for ages 6 + years (18+, 12-17, 6-11) (Old) Moderna COVID-19 Vaccine Bivalent Booster for ages 6 + years (18+, 12-17, 6-11) 2022-08-08 00:00:00 Samantha Carrero Wolfgang Alex influenza, high-dose, quadrivalent influenza, high-dose, quadrivalent 2022-03-19 00:00:00 Completed Magan Wolfgang Johnson Moderna COVID-19 Vaccine 2021-09-20 00:00:00 Completed Moderna COVID-19 Vaccine 2021-09-20 00:00:00 Completed Moderna COVID-19 Vaccine 2021-09-20 00:00:00 Completed Moderna COVID-19 Vaccine Moderna COVID-19 Vaccine 2021-09-20 00:00:00 Samantha Magan Wolfgang Alex Moderna COVID-19 Vaccine 2021-04-11 00:00:00 Completed Moderna COVID-19 Vaccine 2021-04-11 00:00:00 Completed Moderna COVID-19 Vaccine 2021-04-11 00:00:00 Completed Moderna COVID-19 Vaccine Moderna COVID-19 Vaccine 2021-04-11 00:00:00 Samantha Magan Wolfgang Alex influenza, high-dose, quadrivalent influenza, high-dose, quadrivalent 2021-03-01 00:00:00 Completed Magan Wolfgang Alex Moderna COVID-19 Vaccine 2020-08-29 00:00:00 Completed Moderna COVID-19 Vaccine 2020-08-29 00:00:00 Completed Moderna COVID-19 Vaccine 2020-08-29 00:00:00 Completed Moderna COVID-19 Vaccine Moderna COVID-19 Vaccine 2020-08-29 00:00:00 Completed Magan Johnson Moderna COVID-19 Vaccine 2020-07-27 00:00:00 Completed Moderna COVID-19 Vaccine 2020-07-27 00:00:00 Completed Moderna COVID-19 Vaccine 2020-07-27 00:00:00 Completed Moderna COVID-19 Vaccine Moderna COVID-19 Vaccine 2020-07-27 00:00:00 Completed Magan Johnson Vital Signs Vital Name Observation Time Observation Value Comments S ource Body height 2022-05-02 20:38:00 154.9 [facility] Body weight 2022-05-02 20:38:00 98.431 kg [facility] BMI 2022-05-02 20:38:00 41.00 kg/m2 [facility] Body height 2022-03-14 18:36:00 154.9 cm [facility] Body weight 2022-03-14 18:36:00 97.523 kg [facility] BMI 2022-03-14 18:36:00 40.62 kg/m2 [facility] BP Systolic 2024-01-08 11:20:00 153 mm[Hg] Step hen F Alex BP Diastolic 2024-01-08 11:20:00 86 mm[Hg] Sb phen F Alex Weight Measured 2024-01-08 11:20:00 223.40 pounds Magan Johnson Height Measured 2024-01-08 11:20:00 63.00 inches Magan Johnson Body Temperature 2024-01-08 11:20:00 97.90 degrees Magan Johnson Heart Rate 2024-01-08 11:20:00 64.00 /min Monica en F Alex Respiratory Rate 2024-01-08 11:20:00 Magan Johnson BP Systolic 2023-09-09 10:38:00 130 mm[Hg] Step hen F Alex BP Diastolic 2023-09-09 10:38:00 78 mm[Hg] Sb phen F Alex Weight Measured 2023-09-09 10:38:00 215.00 pounds Magan F Alex Height Measured 2023-09-09 10:38:00 63.00 inches Magan F Alex Body Temperature 2023-09-09 10:38:00 97.60 degrees Magan F Alex Heart Rate 2023-09-09 10:38:00 74.00 /min Monica en F Alex Respiratory Rate 2023-09-09 10:38:00 Magan F Alex BP Systolic 2023-07-08 10:39:00 140 mm[Hg] Step hen F Alex BP Diastolic 2023-07-08 10:39:00 85 mm[Hg] Sb phen F Alex Weight Measured 2023-07-08 10:39:00 210.80 pounds Magan F Alex Height Measured 2023-07-08 10:39:00 63.00 inches Magan F Alex Body Temperature 2023-07-08 10:39:00 97.50 degrees Magan F Alex Heart Rate 2023-07-08 10:39:00 78.00 /min Monica en F Alex Respiratory Rate 2023-07-08 10:39:00 Magan F Alex BP Systolic 2023-04-08 11:01:00 140 mm[Hg] Step hen F Alex BP Diastolic 2023-04-08 11:01:00 84 mm[Hg] Sb phen F Alex Weight Measured 2023-04-08 11:01:00 207.40 pounds Magan F Alex Height Measured 2023-04-08 11:01:00 63.00 inches Magan F Alex Body Temperature 2023-04-08 11:01:00 97.50 degrees Magan F Alex Heart Rate 2023-04-08 11:01:00 86.00 /min Monica en F Alex Respiratory Rate 2023-04-08 11:01:00 Magan F Alex BP Systolic 2023-03-21 11:05:00 124 mm[Hg] Step hen F Alex BP Diastolic 2023-03-21 11:05:00 84 mm[Hg] Sb phen F Alex Weight Measured 2023-03-21 11:05:00 205.20 pounds Magan F Alex Height Measured 2023-03-21 11:05:00 63.00 inches Magan F Alex Body Temperature 2023-03-21 11:05:00 98.60 degrees Magan F Alex Heart Rate 2023-03-21 11:05:00 76.00 /min Monica en F Alex Respiratory Rate 2023-03-21 11:05:00 Magan F Alex BP Systolic 2023-01-14 08:39:00 138 mm[Hg] Step hen F Laex BP Diastolic 2023-01-14 08:39:00 83 mm[Hg] Sb phen F Alex Weight Measured 2023-01-14 08:39:00 204.60 pounds Magan F Alex Height Measured 2023-01-14 08:39:00 63.00 inches Magan F Alex Body Temperature 2023-01-14 08:39:00 97.60 degrees Magan F Alex Heart Rate 2023-01-14 08:39:00 74.00 /min Monica en F Alex Respiratory Rate 2023-01-14 08:39:00 15.00 /min Magan F Alex BP Systolic 2022-12-05 10:37:00 123 mm[Hg] Step hen F Alex BP Diastolic 2022-12-05 10:37:00 81 mm[Hg] Sb phen F Alex Weight Measured 2022-12-05 10:37:00 210.80 pounds Magan F Alex Height Measured 2022-12-05 10:37:00 63.00 inches Magan F Alex Body Temperature 2022-12-05 10:37:00 98.40 degrees Magan F Alex Heart Rate 2022-12-05 10:37:00 69.00 /min Monica en F Alex Respiratory Rate 2022-12-05 10:37:00 Magan F Aelx BP Systolic 2022-08-08 10:55:00 143 mm[Hg] Step hen F Alex BP Diastolic 2022-08-08 10:55:00 84 mm[Hg] Sb phen F Alex Weight Measured 2022-08-08 10:55:00 212.60 pounds Magan F Alex Height Measured 2022-08-08 10:55:00 63.00 inches Magan F Alex Body Temperature 2022-08-08 10:55:00 98.10 degrees Magan F Alex Heart Rate 2022-08-08 10:55:00 76.00 /min Monica en F Alex Respiratory Rate 2022-08-08 10:55:00 Magan F Alex BP Systolic 2022-04-11 11:02:00 149 mm[Hg] Step hen F Alex BP Diastolic 2022-04-11 11:02:00 83 mm[Hg] Sb phen F Alex Weight Measured 2022-04-11 11:02:00 223.40 pounds Magan F Alex Height Measured 2022-04-11 11:02:00 63.00 inches Magan F Alex Body Temperature 2022-04-11 11:02:00 98.10 degrees Magan F Alex Heart Rate 2022-04-11 11:02:00 78.00 /min Monica en F Alex Respiratory Rate 2022-04-11 11:02:00 Magan F Alex BP Systolic 2022-01-04 16:01:00 117 mm[Hg] Step hen F Alex BP Diastolic 2022-01-04 16:01:00 78 mm[Hg] Sb phen F Alex Weight Measured 2022-01-04 16:01:00 219.20 pounds Magan F Alex Height Measured 2022-01-04 16:01:00 63.00 inches Magan F Alex Body Temperature 2022-01-04 16:01:00 98.30 degrees Magan F Alex Heart Rate 2022-01-04 16:01:00 87.00 /min Monica en F Alex Respiratory Rate 2022-01-04 16:01:00 Magan F Alex BP Systolic 2021-12-21 11:00:00 115 mm[Hg] Step hen F Alex BP Diastolic 2021-12-21 11:00:00 60 mm[Hg] Sb phen F Alex Weight Measured 2021-12-21 11:00:00 217.00 pounds Magan F Alex Height Measured 2021-12-21 11:00:00 63.00 inches Magan F Alex Body Temperature 2021-12-21 11:00:00 Magan F Alex Heart Rate 2021-12-21 11:00:00 55.00 /min Monica en F Alex Respiratory Rate 2021-12-21 11:00:00 Magan F Alex BP Systolic 2021 16:09:00 113 mm[Hg] BP Diastolic 2021 16:09:00 75 mm[Hg] Weight Measured 2021 16:09:00 223.00 pounds Height Measured 2021 16:09:00 63.00 inches Body Temperature 2021 16:09:00 98.20 degrees Heart Rate 2021 16:09:00 74.00 /min Respiratory Rate 2021 16:09:00 BP Systolic 2021-09-11 10:33:00 125 mm[Hg] BP Diastolic 2021-09-11 10:33:00 78 mm[Hg] Weight Measured 2021-09-11 10:33:00 220.80 pounds Height Measured 2021-09-11 10:33:00 63.00 inches Body Temperature 2021-09-11 10:33:00 97.90 degrees Heart Rate 2021-09-11 10:33:00 63.00 /min Respiratory Rate 2021-09-11 10:33:00 BP Diastolic 2021-06-13 08:29:00 78 mm[Hg] Weight Measured 2021-06-13 08:29:00 227.60 pounds Height Measured 2021-06-13 08:29:00 63.00 inches Body Temperature 2021-06-13 08:29:00 97.70 degrees Heart Rate 2021-06-13 08:29:00 62.00 /min Respiratory Rate 2021-06-13 08:29:00 BP Systolic 2021-06-13 08:29:00 146 mm[Hg] BP Systolic 2021-04-11 13:22:00 135 mm[Hg] BP Diastolic 2021-04-11 13:22:00 79 mm[Hg] Weight Measured 2021-04-11 13:22:00 236.00 pounds Height Measured 2021-04-11 13:22:00 63.00 inches Body Temperature 2021-04-11 13:22:00 97.40 degrees Heart Rate 2021-04-11 13:22:00 75.00 /min Respiratory Rate 2021-04-11 13:22:00 BP Systolic 2020-12-06 16:59:00 125 mm[Hg] BP Diastolic 2020-12-06 16:59:00 63 mm[Hg] Weight Measured 2020-12-06 16:59:00 238.40 pounds Height Measured 2020-12-06 16:59:00 63.00 inches Body Temperature 2020-12-06 16:59:00 97.40 degrees Heart Rate 2020-12-06 16:59:00 56.00 /min Respiratory Rate 2020-12-06 16:59:00 BP Systolic 2020-06-14 11:05:00 130 mm[Hg] BP Diastolic 2020-06-14 11:05:00 68 mm[Hg] Weight Measured 2020-06-14 11:05:00 242.60 pounds Height Measured 2020-06-14 11:05:00 63.00 inches Body Temperature 2020-06-14 11:05:00 97.40 degrees Heart Rate 2020-06-14 11:05:00 Respiratory Rate 2020-06-14 11:05:00 BP Systolic 2019-12-03 16:59:00 BP Diastolic 2019-12-03 16:59:00 Weight Measured 2019-12-03 16:59:00 249.00 pounds Height Measured 2019-12-03 16:59:00 63.00 inches Body Temperature 2019-12-03 16:59:00 Heart Rate 2019-12-03 16:59:00 Respiratory Rate 2019-12-03 16:59:00 BP Systolic 2019-06-29 10:12:00 150 mm[Hg] BP Diastolic 2019-06-29 10:12:00 85 mm[Hg] Weight Measured 2019-06-29 10:12:00 260.00 pounds Height Measured 2019-06-29 10:12:00 63.00 inches Body Temperature 2019-06-29 10:12:00 97.60 degrees Heart Rate 2019-06-29 10:12:00 82.00 /min Respiratory Rate 2019-06-29 10:12:00 Procedures Procedure Date / Time Performed Performing Clinician Source US RETROPERITONEAL COMPLETE 2020-06-29 15:43:52 Requisition, Paper [facility] ASSIGNMENT OF BENEFITS 2020-06-29 14:46:41 Docto r Unassigned, Martell [facility] DEXA AXIAL (HIP AND SPINE) 2019-08-03 15:59:54 Moraima Shaw [facility] ASSIGNMENT OF BENEFITS 2019-08-03 15:25:36 Docto r Unassigned, Martell [facility] XR HIPS 2 VW BILATERAL 2019-01-12 20:34:24 Zoe Rogers [facility] XR CERVICAL SPINE 2 VW 2019-01-12 20:34:24 Zoe Rogers [facility] XR LUMBAR SPINE 2 VW 2019-01-12 20:34:24 Valencia Rogers [facility] XR SPINE THORACIC 2 VW 2019-01-12 20:34:24 Zoe Rogers [facility] XR KNEE <3 VW BILATERAL 2019-01-12 20:34:24 Zoe Rogers [facility] XR PELVIS <3 VW 2019-01-12 20:34:24 Zoe Rogers [facility] Plan of Care Planned Activity Planned Date Details Comments Source Goal Plan of Care Note [code = 32101-9] Goal Plan of Care Note [code = 93851-4] Goal Plan of Care Note [code = 75474-9] Goal Plan of Care Note [code = 60215-4] Goal Plan of Care Note [code = 70406-3] Goal Plan of Care Note [code = 12119-5] Goal Plan of Care Note [code = 83217-6] Goal Plan of Care Note [code = 97898-5] Goal Plan of Care Note [code = 94171-8] Goal Plan of Care Note [code = 52879-4] Goal Plan of Care Note [code = 44278-5] Goal Plan of Care Note [code = 31534-6] Goal Plan of Care Note [code = 76043-2] Goal Plan of Care Note [code = 69571-7] Goal Plan of Care Note [code = 24073-9] Goal Plan of Care Note [code = 16806-5] Goal Plan of Care Note [code = 50159-8] Goal Plan of Care Note [code = 98200-8] Goal Plan of Care Note [code = 32931-2] Goal Plan of Care Note [code = 83228-1] Goal Plan of Care Note [code = 32977-0] Goal Plan of Care Note [code = 85773-8] Goal Plan of Care Note [code = 86213-4] Goal Plan of Care Note [code = 11294-4] Goal Plan of Care Note [code = 21173-1] Goal Plan of Care Note [code = 32229-4] Goal Plan of Care Note [code = 17028-4] Goal Plan of Care Note [code = 61156-6] Goal Plan of Care Note [code = 95003-5] Goal Plan of Care Note [code = 99212-7] Goal Plan of Care Note [code = 99092-9] Goal Plan of Care Note [code = 54547-5] Goal Plan of Care Note [code = 31117-7] Goal Plan of Care Note [code = 89787-0] Goal Plan of Care Note [code = 16998-0] Goal Plan of Care Note [code = 53576-4] Goal Plan of Care Note [code = 94936-0] Goal Plan of Care Note [code = 24962-1] Goal Plan of Care Note [code = 84904-9] Goal Plan of Care Note [code = 03618-6] Goal Plan of Care Note [code = 88809-8] Goal Plan of Care Note [code = 82061-4] Goal Plan of Care Note [code = 76088-5] Goal Plan of Care Note [code = 77744-5] Goal Plan of Care Note [code = 39224-8] Goal Plan of Care Note [code = 91464-6] Goal Plan of Care Note [code = 67015-1] Goal Plan of Care Note [code = 74016-8] Goal Plan of Care Note [code = 80433-3] Goal Plan of Care Note [code = 73401-8] Goal Plan of Care Note [code = 56305-8] Goal Plan of Care Note [code = 14484-6] Goal Plan of Care Note [code = 05441-4] Goal Plan of Care Note [code = 57128-1] Goal Plan of Care Note [code = 37946-4] Encounters Start Date/Time End Date/Time Encounter Type Admission Type Attending Clinicians Care Facility Care Department Encounter ID Source 2022-04-10 10:37:51 Outpatient [facility] [id number] [facility] 2022-03-15 11:12:10 Outpatient [facility] [id number] [facility] 2022-03-14 13:26:26 Outpatient [facility] [id number] [facility] 2022-03-06 14:04:56 Outpatient [facility] [id number] [facility] 2021-06-21 14:23:20 Outpatient Zoe Rogers [facility] [id number] [facility] 2021-06-21 14:20:17 Outpatient Zoe Rogers [facility] [id number] [facility] 2024-01-08 11:16:44 2024-01-08 11:16:44 Outpatient [facility] 14 Magan Johnson 2024-01-08 00:00:00 2024-01-08 00:00:00 Outpatient Visit SFA [id number] Magan Johnson 2023-09-09 10:37:44 2023-09-09 10:37:44 Outpatient SFA [facility] 0415 Magan Goss Costilla 2023-09-09 00:00:00 2023-09-09 00:00:00 Outpatient Visit SFA [id number] Magan Goss Alex 2023-07-26 11:36:57 2023-07-26 11:36:57 Outpatient SFA SFA 300 Magan Goss Alex 2023-07-12 15:21:51 2023-07-12 15:21:51 Outpatient SFA SFA 215 Magan Goss Costilla 2023-07-08 10:37:47 2023-07-08 10:37:47 Outpatient SFA SFA 211 Magan Goss Costilla 2023-04-08 10:56:55 2023-04-08 10:56:55 Outpatient SFA SFA [id number] Magan Goss Alex 2023-03-21 10:45:35 2023-03-21 10:45:35 Outpatient SFA SFA [id number] Magan Goss Alex 2023-01-14 08:35:15 2023-01-14 08:35:15 Outpatient SFA SFA [id number] Magan Goss Alex 2022-12-05 10:25:00 2022-12-05 10:25:00 Outpatient SFA SFA [id number] Magan Johnson 2022-11-15 09:01:03 2022-11-15 09:01:03 Outpatient SFA SFA [id number] Magan Johnson 2022-08-16 14:37:00 2022-08-16 14:37:00 Outpatient Kia Quinn [facility] [id number] JOSE [facility] 2022-08-16 14:37:00 2022-08-16 14:37:00 Outpatient Kia Quinn [facility] [id number] JOSE [facility] 2022-08-09 08:21:27 2022-08-09 08:21:[address] [facility] 6 Magan Johnson 2022-08-08 10:53:43 2022-08-08 10:53:[address] [facility] 5 Magan Johnson 2022-05-02 15:00:00 2022-05-02 15:27:28 Office Visit AlirioRomina bazan [facility] [address] [facility] [id number] [facility] 2022-04-11 14:15:00 2022-04-11 14:30:58 Outpatient ALIRIOROMINA BAZAN [facility] [id number] [facility] 2022-04-11 10:58:08 2022-04-11 10:58:[address] [facility] [id number] Magan Johnson 2022-04-11 00:00:00 2022-04-11 00:00:00 Outpatient Visit [id number] 2022-04-02 09:07:00 2022-04-02 23:59:00 Outpatient ROMINA AMEZQUITA [facility] [address] [facility] 2022-04-02 11:45:00 2022-04-02 11:45:00 Outpatient ALIRIOROMINA [facility] [id number] [facility] 2022-03-15 09:38:06 2022-03-15 09:38:06 Outpatient SFA [facility] [id number] Magan Johnson 2022-03-14 13:30:00 2022-03-14 14:23:50 Office Visit Romina Amezquita [address] [id number] [facility] 2022-01-04 00:00:00 2022-01-04 00:00:00 Outpatient Visit [id number] 2021-12-21 00:00:00 2021-12-21 00:00:00 Outpatient Visit [id number] 2021-05-08 00:00:00 2021-05-08 00:00:00 ambulatory STLMLC STLMLC [id number] [facility] 2021-04-28 00:00:00 2021-04-28 00:00:00 ambulatory STLMLC STLMLC [id number] [facility] 2020-06-29 08:49:11 2020-06-29 23:59:00 Hospital Encounter Radiology [facility] [id number] 350.1.13.10 4.2.7.2.686 [id number] 2020-06-29 08:49:11 2020-06-29 23:59:00 Hospital Encounter Radiology [facility] [id number] 350.1.13.10 4.2.7.2.686 [id number] [facility] 2020-06-29 00:00:00 2020-06-29 00:00:00 Outpatient R RADIOLOGY [facility] [id number] [facility] 2020-06-29 00:00:00 2020-06-29 00:00:00 Orders Only Doctor Unassigned, Martell [facility] 1.2.840.114 350.1.13.10 4.2.7.2.686 [id number] 2020-06-29 00:00:00 2020-06-29 00:00:00 Orders Only Doctor Unassigned, Martell [facility] 1.2.840.114 350.1.13.10 4.2.7.2.686 [id number] [facility] 2019-08-03 10:30:02 2019-08-03 23:59:00 Outpatient R BEVERLYPRATIKSAILAJA ARDON I [facility] [id number] [facility] 2019-08-03 10:30:00 2019-08-03 23:59:00 Hospital Encounter Sailjaa Shaw [facility] 1.2.840.114 350.1.13.10 4.2.7.2.686 [id number] 2019-08-03 10:30:00 2019-08-03 23:59:00 Hospital Encounter Sailaja Shaw [facility] [id number] [id number] [id number] [facility] 2019-08-03 00:00:00 2019-08-03 00:00:00 Orders Only Doctor Unassigned, Martell [facility] [id number] 350.1.13.10 [id number] [id number] 2019-08-03 00:00:00 2019-08-03 00:00:00 Orders Only Doctor Unassigned, Martell [facility] [id number] [id number] [id number] [id number] [facility] 2019-07-08 10:53:00 2019-07-08 10:53:[address] [facility] [id number] [facility] 2019-01-12 14:00:00 2019-01-12 23:59:00 Hospital Encounter Radiology [facility] [id number] [id number] [id number] 2019-01-12 14:00:00 2019-01-12 23:59:00 Hospital Encounter Radiology [facility] [id number] [id number] [id number] [facility] 2019-01-09 10:00:00 2019-01-09 10:00:[address] [facility] [id number] [facility] 2018-07-31 11:00:00 2018-07-31 11:00:[address] [facility] [facility] [id number] [facility] 2018-05-06 13:49:00 2018-05-06 13:49:[address] [facility] [id number] [facility] 2018-02-19 13:44:00 2018-02-19 13:44:[address] [facility] [id number] [facility] 2018-02-14 13:01:00 2018-02-14 13:01:00 [facility] [id number] [facility] 2018-02-13 11:30:00 2018-02-13 11:30:00 [facility] [id number] [facility] 2018-01-07 10:59:00 2018-01-07 10:59:00 [facility] [id number] [facility] 2017-12-23 15:10:00 2017-12-23 15:10:00 [facility] [id number] [facility] 2017-12-16 15:35:00 2017-12-16 15:35:00 [facility] [id number] [facility] 2017-12-13 23:19:00 2017-12-13 23:19:00 [facility] [id number] [facility] 2017-12-13 12:14:00 2017-12-13 12:14:00 Outpatient [facility] [id number] [facility] 2017-12-13 11:30:00 2017-12-13 11:30:00 Outpatient [facility] [id number] [facility] Results Test Description Test Time Test Comments Results Result Co mments Source COMPREHENSIVE METABOLIC [id number] 04:11:19* Test Item Value Reference Range Interpretation Comme nts GLUCOSE (test code = 2217) 84 MG/DL 70-99 BUN (test code = 2208) 18 MG/DL 8-23 CREATININE (test code = 2214) 1.17 MG/DL 0.60-1.30 eGFR (2020 CKD-EPI) (test code = 73282) 50 ML/MIN/1.73 >60 L The NKF-ASN Taskforce recommends use of Cystatin C to confirm eGFR inadults at risk for CKD. [facility] offers eGFR with Cystatin C-Creatinineusing the 2020 CKD-EPI eGFR_creat-cystat equation (order code 3057) toincrease the accuracy of estimated GFR. For more information, contactyour accounting software specialist or see announcement [email or web address] CALC BUN/CREAT (test code = 2235) 15 RATIO 6-28 SODIUM (test code = 2230) 141 MEQ/L 133-146 POTASSIUM (test code = 2227) 4.7 MEQ/L 3.5-5.4 CHLORIDE (test code = 2215) 105 MEQ/L 95-107 CARBON DIOXIDE (test code = 2205) 24 MEQ/L 19-31 CALCIUM (test code = 2208) 10.1 MG/DL 8.5-10.5 PROTEIN, TOTAL (test code = 2228) 7.1 G/DL 6.1-8.3 ALBUMIN (test code = 2200) 4.4 G/DL 3.5-5.2 CALC GLOBULIN (test code = 2240) 2.7 G/DL 1.9-3.7 CALC A/G RATIO (test code = 2233) 1.6 RATIO 1.0-2.6 BILIRUBIN, TOTAL (test code = 2206) 0.3 MG/DL <=1.2 ALKALINE PHOSPHATASE (test code = 2203) 78 U/L 40-142 AST (test code = 2217) 16 U/L 9-40 ALT (test code = 2218) 12 U/L 5-40 LIPID [id number] 04:11:19* Test Item Value Reference Range Interpretation Comme nts CHOLESTEROL (test code = 0) 196 MG/DL <200 TRIGLYCERIDES (test code = 2232) 149 MG/DL <150 HDL CHOLESTEROL (test code = 2219) 61 MG/DL >39 CALC LDL CHOL (test code = 2236) 109 MG/DL <100 H NOTE: CALCULATED LDL IS BASED ON ROBINSON-MONET METHOD WHICHINCLUDES ADJUSTABLE TRIGLYCERIDE:VLDL CHOLESTEROL RATIO.THIS FACTOR VARIES BY MEASURED TRIGLYCERIDE AND NON-HDLCHOLESTEROL CONCENTRATIONS WITH INCREASED CALCULATED LDL SEENIN HIGHER TRIGLYCERIDE OR LOWER NON-HDL SPECIMENS. FOR MOREINFORMATION, SEE CLIENT ANNOUNCEMENT AT [email or web address] /CalcLDL-C RISK RATIO LDL/HDL (test code = 2238) 1.79 RATIO <3.22 COMPREHENSIVE METABOLIC [id number] 00:00:00* Test Item Value Reference Range Interpretation Comme nts GLUCOSE (test code = 7) 84 MG/DL BUN (test code = 2207) 18 MG/DL CREATININE (test code = 4) 1.17 MG/DL eGFR (2020 CKD-EPI) (test co de = 85955) 50 ML/MIN/1.73 CALC BUN/CREAT (test code = 2235) 15 RATIO SODIUM (test code = 2231) 141 MEQ/L POTASSIUM (test code = 2228) 4.7 MEQ/L CHLORIDE (test code = 2215) 105 MEQ/L CARBON DIOXIDE (test code = 2206) 24 MEQ/L CALCIUM (test code = 2209) 10.1 MG/DL PROTEIN, TOTAL (test code = 2229) 7.1 G/DL ALBUMIN (test code = 2201) 4.4 G/DL CALC GLOBULIN (test code = 2240) 2.7 G/DL CALC A/G RATIO (test code = 2234) 1.6 RATIO BILIRUBIN, TOTAL (test code = 2207) 0.3 MG/DL ALKALINE PHOSPHATASE (test code = 2204) 78 U/L AST (test code = 2218) 16 U/L ALT (test code = 2219) 12 U/L Magan Goss AustinLIPID [id number] 00:00:00* Test Item Value Reference Range Interpretation Comme nts CHOLESTEROL (test code = 2210) 196 MG/DL TRIGLYCERIDES (test code = 2232) 149 MG/DL HDL CHOLESTEROL (test code = 2220) 61 MG/DL CALC LDL CHOL (test code = 2237) 109 MG/DL RISK RATIO LDL/HDL (test cod e = 2238) 1.79 RATIO Magan JohnsonTSH + FREE T4 [id number] 00:00:00* Test Item Value Reference Range Interpretation Comme nts TSH, THIRD GENERATION (test code = 2821) 2.600 UIU/ML FREE T4 (THYROXINE) (test co de = 2823) 1.43 NG/DL Magan Goss [id number] 00:00:00* Test Item Value Reference Range Interpretation Comme nts POTASSIUM (test code = 2228) 4.9 MEQ/L Magan Goss [id number] 00:00:00* Test Item Value Reference Range Interpretation Comme nts POTASSIUM (test code = 2228) 4.9 MEQ/L Magan Goss AustinTSH + FREE T4 [id number] 07:52:21* Test Item Value Reference Range Interpretation Comme nts TSH, THIRD GENERATION (test code = 2821) 1.920 UIU/ML 0.400-4.100 FREE T4 (THYROXINE) (test code = 2823) 1.44 NG/DL 0.80-1.90 UNLESS OTHERW ISE INDICATED, ALL TESTING PERFORMED AT [facility] [address] [place] [id number] QUANTITATIVE MANAGER: MICHELLE MARTINEZ M.D. CLIA NUMBER [id number] [place]. [id number] COMPREHENSIVE METABOLIC [id number] 07:52:04* Test Item Value Reference Range Interpretation Comme nts GLUCOSE (test code = 2217) 90 MG/DL 70-99 BUN (test code = 220) 20 MG/DL 8-23 CREATININE (test code = 221) 0.98 MG/DL 0.60-1.30 eGFR (2020 CKD-EPI) (test code = 94825) 62 ML/MIN/1.73 >60 CALC BUN/CREAT (test code = 2235) 20 RATIO 6-28 SODIUM (test code = 223) 140 MEQ/L 133-146 POTASSIUM (test code = 2228) 6.2 MEQ/L 3.5-5.4 H HEMOLYTIC INTERFERENCE DETECTED; RESULTS MAY BE AFFECTED CHLORIDE (test code = 2215) 103 MEQ/L 95-107 CARBON DIOXIDE (test code = 2206) 23 MEQ/L 19-31 CALCIUM (test code = 2209) 10.2 MG/DL 8.5-10.5 PROTEIN, TOTAL (test code = 2229) 6.8 G/DL 6.1-8.3 ALBUMIN (test code = 2201) 4.3 G/DL 3.5-5.2 CALC GLOBULIN (test code = 2240) 2.5 G/DL 1.9-3.7 CALC A/G RATIO (test code = 2234) 1.7 RATIO 1.0-2.6 BILIRUBIN, TOTAL (test code = 2207) 0.2 MG/DL <=1.2 ALKALINE PHOSPHATASE (test code = 2204) 73 U/L 40-142 AST (test code = 2218) 25 U/L 9-40 ALT (test code = 2219) 14 U/L 5-40 LIPID [id number] 07:52:04* Test Item Value Reference Range Interpretation Comme nts CHOLESTEROL (test code = 2210) 192 MG/DL <200 TRIGLYCERIDES (test code = 2232) 182 MG/DL <150 H HDL CHOLESTEROL (test code = 2220) 60 MG/DL >39 CALC LDL CHOL (test code = 2237) 102 MG/DL <100 H NOTE: CALCULATED LDL IS BASED ON ROBINSON-MONET METHOD WHICHINCLUDES ADJUSTABLE TRIGLYCERIDE:VLDL CHOLESTEROL RATIO.THIS FACTOR VARIES BY MEASURED TRIGLYCERIDE AND NON-HDLCHOLESTEROL CONCENTRATIONS WITH INCREASED CALCULATED LDL SEENIN HIGHER TRIGLYCERIDE OR LOWER NON-HDL SPECIMENS. FOR MOREINFORMATION, SEE CLIENT ANNOUNCEMENT AT [email or web address] /CalcLDL-C RISK RATIO LDL/HDL (test code = 2238) 1.70 RATIO <3.22 HEMOGLOBIN [id number] 02:11:30* Test Item Value Reference Range Interpretation Comme nts HEMOGLOBIN A1c (test code = 35211) 5.1 % 4.2-5.6 COMPREHENSIVE METABOLIC [id number] 00:00:00* Test Item Value Reference Range Interpretation Comme nts GLUCOSE (test code = 2217) 90 MG/DL BUN (test code = 2208) 20 MG/DL CREATININE (test code = 2214) 0.98 MG/DL eGFR (2020 CKD-EPI) (test co de = 13481) 62 ML/MIN/1.73 CALC BUN/CREAT (test code = 2235) 20 RATIO SODIUM (test code = 2231) 140 MEQ/L POTASSIUM (test code = 2228) 6.2 MEQ/L CHLORIDE (test code = 2215) 103 MEQ/L CARBON DIOXIDE (test code = 2206) 23 MEQ/L CALCIUM (test code = 2209) 10.2 MG/DL PROTEIN, TOTAL (test code = 2229) 6.8 G/DL ALBUMIN (test code = 2201) 4.3 G/DL CALC GLOBULIN (test code = 2240) 2.5 G/DL CALC A/G RATIO (test code = 2234) 1.7 RATIO BILIRUBIN, TOTAL (test code = 2207) 0.2 MG/DL ALKALINE PHOSPHATASE (test code = 2204) 73 U/L AST (test code = 2218) 25 U/L ALT (test code = 2219) 14 U/L Magan Wolfgang AustinHEMOGLOBIN [id number] 00:00:00* Test Item Value Reference Range Interpretation Comme nts HEMOGLOBIN A1c (test code = 75321) 5.1 % Magan F AustinLIPID [id number] 00:00:00* Test Item Value Reference Range Interpretation Comme nts CHOLESTEROL (test code = 2210) 192 MG/DL TRIGLYCERIDES (test code = 2232) 182 MG/DL HDL CHOLESTEROL (test code = 2220) 60 MG/DL CALC LDL CHOL (test code = 2237) 102 MG/DL RISK RATIO LDL/HDL (test cod e = 2238) 1.70 RATIO Magan JohnsonTSH + FREE T4 [id number] 00:00:00* Test Item Value Reference Range Interpretation Comme nts TSH, THIRD GENERATION (test code = 2821) 1.920 UIU/ML FREE T4 (THYROXINE) (test co de = 2823) 1.44 NG/DL Magan JohnsonCOMPREHENSIVE METABOLIC [id number] 00:00:00* Test Item Value Reference Range Interpretation Comme nts GLUCOSE (test code = 2217) 90 MG/DL BUN (test code = 2208) 20 MG/DL CREATININE (test code = 2214) 0.98 MG/DL eGFR (2020 CKD-EPI) (test co de = 01404) 62 ML/MIN/1.73 CALC BUN/CREAT (test code = 2235) 20 RATIO SODIUM (test code = 2231) 140 MEQ/L POTASSIUM (test code = 2228) 6.2 MEQ/L CHLORIDE (test code = 2215) 103 MEQ/L CARBON DIOXIDE (test code = 2206) 23 MEQ/L CALCIUM (test code = 2209) 10.2 MG/DL PROTEIN, TOTAL (test code = 2229) 6.8 G/DL ALBUMIN (test code = 2201) 4.3 G/DL CALC GLOBULIN (test code = 2240) 2.5 G/DL CALC A/G RATIO (test code = 2234) 1.7 RATIO BILIRUBIN, TOTAL (test code = 2207) 0.2 MG/DL ALKALINE PHOSPHATASE (test code = 2204) 73 U/L AST (test code = 2218) 25 U/L ALT (test code = 2219) 14 U/L Magan JohnsonHEMOGLOBIN [id number] 00:00:00* Test Item Value Reference Range Interpretation Comme nts HEMOGLOBIN A1c (test code = 45121) 5.1 % Magan JohnsonLIPID [id number] 00:00:00* Test Item Value Reference Range Interpretation Comme nts CHOLESTEROL (test code = 2210) 192 MG/DL TRIGLYCERIDES (test code = 2232) 182 MG/DL HDL CHOLESTEROL (test code = 2220) 60 MG/DL CALC LDL CHOL (test code = 2237) 102 MG/DL RISK RATIO LDL/HDL (test cod e = 2238) 1.70 RATIO Magan JohnsonTSH + FREE T4 [id number] 00:00:00* Test Item Value Reference Range Interpretation Comme nts TSH, THIRD GENERATION (test code = 2821) 1.920 UIU/ML FREE T4 (THYROXINE) (test co de = 2823) 1.44 NG/DL Magan JohnsonCOMPREHENSIVE METABOLIC [id number] 10:31:10* Test Item Value Reference Range Interpretation Comme nts GLUCOSE (test code = 2217) 96 MG/DL 70-99 BUN (test code = 220) 17 MG/DL 8-23 CREATININE (test code = 2214) 1.12 MG/DL 0.60-1.30 eGFR (2020 CKD-EPI) (test code = 60813) 53 ML/MIN/1.73 >60 L The NKF-ASN Taskforce recommends use of Cystatin C to confirm eGFR inadults at risk for CKD. [facility] offers eGFR with Cystatin C-Creatinineusing the 2020 CKD-EPI eGFR_creat-cystat equation (order code 3057) toincrease the accuracy of estimated GFR. For more information, contactur accounting software specialist or see announcement [email or web address] CALC BUN/CREAT (test code = 2234) 15 RATIO 6-28 SODIUM (test code = 223) 140 MEQ/L 133-146 POTASSIUM (test code = 2228) 4.6 MEQ/L 3.5-5.4 CHLORIDE (test code = 2215) 105 MEQ/L 95-107 CARBON DIOXIDE (test code = 2206) 22 MEQ/L 19-31 CALCIUM (test code = 2209) 10.7 MG/DL 8.5-10.5 H PROTEIN, TOTAL (test code = 2228) 6.8 G/DL 6.1-8.3 ALBUMIN (test code = 2200) 4.2 G/DL 3.5-5.2 CALC GLOBULIN (test code = 2240) 2.6 G/DL 1.9-3.7 CALC A/G RATIO (test code = 2234) 1.6 RATIO 1.0-2.6 BILIRUBIN, TOTAL (test code = 2207) 0.3 MG/DL See_Comment [Automated me ssage] The system which generated this result transmitted reference range: <=1.2. The reference range was not used to interpret this result as normal/abnormal. ALKALINE PHOSPHATASE (test code = 4) 85 U/L 40-142 AST (test code = 2218) 21 U/L 9-40 ALT (test code = 2219) 18 U/L 5-40 LIPID [id number] 10:31:10* Test Item Value Reference Range Interpretation Comme nts CHOLESTEROL (test code = 2210) 177 MG/DL <200 TRIGLYCERIDES (test code = 2232) 142 MG/DL <150 HDL CHOLESTEROL (test code = 2220) 56 MG/DL >39 CALC LDL CHOL (test code = 7) 97 MG/DL <100 NOTE: CALCULATED LDL IS BASED ON ROBINSON-MONET METHOD WHICHINCLUDES ADJUSTABLE TRIGLYCERIDE:VLDL CHOLESTEROL RATIO.THIS FACTOR VARIES BY MEASURED TRIGLYCERIDE AND NON-HDLCHOLESTEROL CONCENTRATIONS WITH INCREASED CALCULATED LDL SEENIN HIGHER TRIGLYCERIDE OR LOWER NON-HDL SPECIMENS. FOR MOREINFORMATION, SEE CLIENT ANNOUNCEMENT AT [email or web address] /CalcLDL-C RISK RATIO LDL/HDL (test code = 2238) 1.73 RATIO <3.22 CBC W/AUTO DIFF WITH [id number] 02:41:41* Test Item Value Reference Range Interpretation Comme nts WBC (test code = 1001) 5.5 K/UL 3.5-11.0 RBC (test code = 1002) 5.73 M/UL 3.80-5.40 H HEMOGLOBIN (test code = 1003) 14.8 G/DL 11.5-15.5 HEMATOCRIT (test code = 1004) 46.5 % 34.0-45.0 H MCV (test code = 1005) 81.2 fL 80.0-99.0 MCH (test code = 1006) 25.8 PG 25.0-33.0 MCHC (test code = 1007) 31.8 G/DL 31.0-36.0 RDW (test code = 1038) 13.6 % 11.5-15.0 NEUTROPHILS (test code = 1008) 52.8 % LYMPHOCYTES (test code = 1010) 25.0 % MONOCYTES (test code = 1011) 9.9 % EOSINOPHILS (test code = 1012) 10.3 % BASOPHILS (test code = 1013) 1.6 % IMMATURE GRANULOCYTES (test code = 1036) 0.4 % NUCLEATED RBCS (test code = 1065) 0.0 /100 WBC'S See_Comment [Automated message] The system which generated this result transmitted reference range: 0.0. The reference range was not used to interpret this result as normal/abnormal. PLATELET COUNT (test code = 1015) 251 K/UL 130-400 ABSOLUTE NEUTROPHILS (test code = 1066) 2.92 K/UL 1.50-7.50 ABSOLUTE LYMPHOCYTES (test code = 1067) 1.38 K/UL 1.00-4.00 ABSOLUTE MONOCYTES (test code = 1068) 0.55 K/UL 0.20-1.00 ABSOLUTE EOSINOPHILS (test code = 1040) 0.57 K/UL 0.00-0.50 H ABSOLUTE BASOPHILS (test code = 1069) 0.09 K/UL 0.00-0.20 ABS IMMATURE GRANULOCYTES (test code = 1020) 0.02 K/UL 0.00-0.10 ABS NUCLEATED RBCS (test code = 80738) 0.00 K/UL 0.00-0.11 UNLESS OTHER WILKERSON INDICATED, ALL TESTING PERFORMED AT [facility] [address] [place] [address] QUANTITATIVE MANAGER: MICHELLE MARTINEZ M.D. CLIA NUMBER [id number] [place]. [id number] LIPID PANEL [ADDED]2023-01-15 00:00:00* Test Item Value Reference Range Interpretation Comme nts CHOLESTEROL (test code = 2210) 177 MG/DL TRIGLYCERIDES (test code = 2232) 142 MG/DL HDL CHOLESTEROL (test code = 2220) 56 MG/DL CALC LDL CHOL (test code = 2237) 97 MG/DL RISK RATIO LDL/HDL (test cod e = 2238) 1.73 RATIO [facility]AUTO DIFF WITH PLATELETS [ADDED]2023-01-15 00:00:00* Test Item Value Reference Range Interpretation Comme nts WBC (test code = 1001) 5.5 K/UL RBC (test code = 1002) 5.73 M/UL HEMOGLOBIN (test code = 1003) 14.8 G/DL HEMATOCRIT (test code = 1004) 46.5 % MCV (test code = 1005) 81.2 fL MCH (test code = 1006) 25.8 PG MCHC (test code = 1007) 31.8 G/DL RDW (test code = 1038) 13.6 % NEUTROPHILS (test code = 1008) 52.8 % LYMPHOCYTES (test code = 1010) 25.0 % MONOCYTES (test code = 1011) 9.9 % EOSINOPHILS (test code = 1012) 10.3 % BASOPHILS (test code = 1013) 1.6 % IMMATURE GRANULOCYTES (test code = 1036) 0.4 % NUCLEATED RBCS (test code = 1065) 0.0 /100WBC'S PLATELET COUNT (test code = 1015) 251 K/UL ABSOLUTE NEUTROPHILS (test c ode = 1066) 2.92 K/UL ABSOLUTE LYMPHOCYTES (test c ode = 1067) 1.38 K/UL ABSOLUTE MONOCYTES (test cod e = 1068) 0.55 K/UL ABSOLUTE EOSINOPHILS (test c ode = 1040) 0.57 K/UL ABSOLUTE BASOPHILS (test cod e = 1069) 0.09 K/UL ABS IMMATURE GRANULOCYTES (t est code = 1020) 0.02 K/UL ABS NUCLEATED RBCS (test cod e = 55055) 0.00 K/UL Magan JohnsonCOMPREHENSIVE METABOLIC PANEL [ADDED]2023-01-15 00:00:00* Test Item Value Reference Range Interpretation Comme nts GLUCOSE (test code = 2217) 96 MG/DL BUN (test code = 2208) 17 MG/DL CREATININE (test code = 2214) 1.12 MG/DL eGFR (2020 CKD-EPI) (test co de = 91384) 53 ML/MIN/1.73 CALC BUN/CREAT (test code = 2235) 15 RATIO SODIUM (test code = 2231) 140 MEQ/L POTASSIUM (test code = 2228) 4.6 MEQ/L CHLORIDE (test code = 2215) 105 MEQ/L CARBON DIOXIDE (test code = 2206) 22 MEQ/L CALCIUM (test code = 2209) 10.7 MG/DL PROTEIN, TOTAL (test code = 2229) 6.8 G/DL ALBUMIN (test code = 2201) 4.2 G/DL CALC GLOBULIN (test code = 2240) 2.6 G/DL CALC A/G RATIO (test code = 2234) 1.6 RATIO BILIRUBIN, TOTAL (test code = 2207) 0.3 MG/DL ALKALINE PHOSPHATASE (test code = 2204) 85 U/L AST (test code = 2218) 21 U/L ALT (test code = 2219) 18 U/L Magan JohnsonLIPID PANEL [ADDED]2023-01-15 00:00:00* Test Item Value Reference Range Interpretation Comme nts CHOLESTEROL (test code = 2210) 177 MG/DL TRIGLYCERIDES (test code = 2232) 142 MG/DL HDL CHOLESTEROL (test code = 2220) 56 MG/DL CALC LDL CHOL (test code = 2237) 97 MG/DL RISK RATIO LDL/HDL (test cod e = 2238) 1.73 RATIO Magan JohnsonCBC W/AUTO DIFF WITH PLATELETS [ADDED]2023-01-15 00:00:00* Test Item Value Reference Range Interpretation Comme nts WBC (test code = 1001) 5.5 K/UL RBC (test code = 1002) 5.73 M/UL HEMOGLOBIN (test code = 1003) 14.8 G/DL HEMATOCRIT (test code = 1004) 46.5 % MCV (test code = 1005) 81.2 fL MCH (test code = 1006) 25.8 PG MCHC (test code = 1007) 31.8 G/DL RDW (test code = 1038) 13.6 % NEUTROPHILS (test code = 1008) 52.8 % LYMPHOCYTES (test code = 1010) 25.0 % MONOCYTES (test code = 1011) 9.9 % EOSINOPHILS (test code = 1012) 10.3 % BASOPHILS (test code = 1013) 1.6 % IMMATURE GRANULOCYTES (test code = 1036) 0.4 % NUCLEATED RBCS (test code = 1065) 0.0 /100WBC'S PLATELET COUNT (test code = 1015) 251 K/UL ABSOLUTE NEUTROPHILS (test c ode = 1066) 2.92 K/UL ABSOLUTE LYMPHOCYTES (test c ode = 1067) 1.38 K/UL ABSOLUTE MONOCYTES (test cod e = 1068) 0.55 K/UL ABSOLUTE EOSINOPHILS (test c ode = 1040) 0.57 K/UL ABSOLUTE BASOPHILS (test cod e = 1069) 0.09 K/UL ABS IMMATURE GRANULOCYTES (t est code = 1020) 0.02 K/UL ABS NUCLEATED RBCS (test cod e = 88999) 0.00 K/UL Magan JohnsonCOMPREHENSIVE METABOLIC PANEL [ADDED]2023-01-15 00:00:00* Test Item Value Reference Range Interpretation Comme nts GLUCOSE (test code = 2217) 96 MG/DL BUN (test code = 2208) 17 MG/DL CREATININE (test code = 2214) 1.12 MG/DL eGFR (2020 CKD-EPI) (test co de = 74198) 53 ML/MIN/1.73 CALC BUN/CREAT (test code = 2235) 15 RATIO SODIUM (test code = 2231) 140 MEQ/L POTASSIUM (test code = 2228) 4.6 MEQ/L CHLORIDE (test code = 2215) 105 MEQ/L CARBON DIOXIDE (test code = 2206) 22 MEQ/L CALCIUM (test code = 2209) 10.7 MG/DL PROTEIN, TOTAL (test code = 2229) 6.8 G/DL ALBUMIN (test code = 2201) 4.2 G/DL CALC GLOBULIN (test code = 2240) 2.6 G/DL CALC A/G RATIO (test code = 2234) 1.6 RATIO BILIRUBIN, TOTAL (test code = 2207) 0.3 MG/DL ALKALINE PHOSPHATASE (test code = 2204) 85 U/L AST (test code = 2218) 21 U/L ALT (test code = 2219) 18 U/L Magan JohnsonCOMPREHENSIVE METABOLIC [id number] 03:32:09* Test Item Value Reference Range Interpretation Comme nts GLUCOSE (test code = 2217) 83 MG/DL 70-99 BUN (test code = 2208) 19 MG/DL 8-23 CREATININE (test code = 2214) 1.06 MG/DL 0.60-1.30 eGFR (2020 CKD-EPI) (test code = 17485) 56 ML/MIN/1.73 >60 L The NKF-ASN Taskforce recommends use of Cystatin C to confirm eGFR inadults at risk for CKD. [facility] offers eGFR with Cystatin C-Creatinineusing the 2020 CKD-EPI eGFR_creat-cystat equation (order code 3057) toincrease the accuracy of estimated GFR. For more information, contactyour accounting software specialist or see announcement [email or web address] CALC BUN/CREAT (test code = 2234) 18 RATIO 6-28 SODIUM (test code = 2230) 139 MEQ/L 133-146 POTASSIUM (test code = 2227) 4.8 MEQ/L 3.5-5.4 CHLORIDE (test code = 2214) 106 MEQ/L 95-107 CARBON DIOXIDE (test code = 2205) 23 MEQ/L 19-31 CALCIUM (test code = 2208) 10.6 MG/DL 8.5-10.5 H PROTEIN, TOTAL (test code = 2228) 6.7 G/DL 6.1-8.3 ALBUMIN (test code = 2200) 4.3 G/DL 3.5-5.2 CALC GLOBULIN (test code = 2240) 2.4 G/DL 1.9-3.7 CALC A/G RATIO (test code = 2233) 1.8 RATIO 1.0-2.6 BILIRUBIN, TOTAL (test code = 2206) 0.3 MG/DL See_Comment [Automated me ssage] The system which generated this result transmitted reference range: <=1.2. The reference range was not used to interpret this result as normal/abnormal. ALKALINE PHOSPHATASE (test code = 2203) 73 U/L 40-142 AST (test code = 221) 22 U/L 9-40 ALT (test code = 2219) 19 U/L 5-40 DIFFICULT STICKLIPID [id number] 03:32:09* Test Item Value Reference Range Interpretation Comme nts CHOLESTEROL (test code = 221) 174 MG/DL <200 TRIGLYCERIDES (test code = 2232) 113 MG/DL <150 HDL CHOLESTEROL (test code = 222) 69 MG/DL >39 CALC LDL CHOL (test code = 223) 84 MG/DL <100 NOTE: CALCULATED LDL IS BASED ON ROBINSON-MONET METHOD WHICHINCLUDES ADJUSTABLE TRIGLYCERIDE:VLDL CHOLESTEROL RATIO.THIS FACTOR VARIES BY MEASURED TRIGLYCERIDE AND NON-HDLCHOLESTEROL CONCENTRATIONS WITH INCREASED CALCULATED LDL SEENIN HIGHER TRIGLYCERIDE OR LOWER NON-HDL SPECIMENS. FOR MOREINFORMATION, SEE CLIENT ANNOUNCEMENT AT [email or web address] /CalcLDL-C RISK RATIO LDL/HDL (test code = 2238) 1.22 RATIO <3.22 UNLESS OTHERW ISE INDICATED, ALL TESTING PERFORMED AT [facility] [employer] [address] [place] [id number] QUANTITATIVE MANAGER: MICHELLE MARTINEZ M.D. CLIA NUMBER [id number] [place]. [id number] DIFFICULT STICKLIPID PANEL [ADDED]2022-11-16 00:00:00* Test Item Value Reference Range Interpretation Comme nts CHOLESTEROL (test code = 2210) 174 MG/DL TRIGLYCERIDES (test code = 2232) 113 MG/DL HDL CHOLESTEROL (test code = 2220) 69 MG/DL CALC LDL CHOL (test code = 2237) 84 MG/DL RISK RATIO LDL/HDL (test cod e = 2238) 1.22 RATIO Magan JohnsonCOMPREHENSIVE METABOLIC PANEL [ADDED]2022-11-16 00:00:00* Test Item Value Reference Range Interpretation Comme nts GLUCOSE (test code = 2217) 83 MG/DL BUN (test code = 2208) 19 MG/DL CREATININE (test code = 2214) 1.06 MG/DL eGFR (2020 CKD-EPI) (test co de = 53094) 56 ML/MIN/1.73 CALC BUN/CREAT (test code = 2235) 18 RATIO SODIUM (test code = 2231) 139 MEQ/L POTASSIUM (test code = 2228) 4.8 MEQ/L CHLORIDE (test code = 2215) 106 MEQ/L CARBON DIOXIDE (test code = 2206) 23 MEQ/L CALCIUM (test code = 2209) 10.6 MG/DL PROTEIN, TOTAL (test code = 2229) 6.7 G/DL ALBUMIN (test code = 2201) 4.3 G/DL CALC GLOBULIN (test code = 2240) 2.4 G/DL CALC A/G RATIO (test code = 2234) 1.8 RATIO BILIRUBIN, TOTAL (test code = 2207) 0.3 MG/DL ALKALINE PHOSPHATASE (test code = 2204) 73 U/L AST (test code = 2218) 22 U/L ALT (test code = 2219) 19 U/L Magan F AustinLIPID PANEL [ADDED]2022-11-16 00:00:00* Test Item Value Reference Range Interpretation Comme nts CHOLESTEROL (test code = 2210) 174 MG/DL TRIGLYCERIDES (test code = 2232) 113 MG/DL HDL CHOLESTEROL (test code = 2220) 69 MG/DL CALC LDL CHOL (test code = 2237) 84 MG/DL RISK RATIO LDL/HDL (test cod e = 2238) 1.22 RATIO Magan JohnsonCOMPREHENSIVE METABOLIC PANEL [ADDED]2022-11-16 00:00:00* Test Item Value Reference Range Interpretation Comme nts GLUCOSE (test code = 2217) 83 MG/DL BUN (test code = 2208) 19 MG/DL CREATININE (test code = 2214) 1.06 MG/DL eGFR (2020 CKD-EPI) (test co de = 86465) 56 ML/MIN/1.73 CALC BUN/CREAT (test code = 2235) 18 RATIO SODIUM (test code = 2231) 139 MEQ/L POTASSIUM (test code = 2228) 4.8 MEQ/L CHLORIDE (test code = 2215) 106 MEQ/L CARBON DIOXIDE (test code = 2206) 23 MEQ/L CALCIUM (test code = 2209) 10.6 MG/DL PROTEIN, TOTAL (test code = 2229) 6.7 G/DL ALBUMIN (test code = 2201) 4.3 G/DL CALC GLOBULIN (test code = 2240) 2.4 G/DL CALC A/G RATIO (test code = 2234) 1.8 RATIO BILIRUBIN, TOTAL (test code = 2207) 0.3 MG/DL ALKALINE PHOSPHATASE (test code = 2204) 73 U/L AST (test code = 2218) 22 U/L ALT (test code = 2219) 19 U/L Magan Johnson- CT CHEST W/O [id number] 00:13:00 [facility] : 1950 Sex: F Name: MICHELLE MEZA : 1950 Age/S: 71 / F [address] [place] [address] Unit #: [id number] Loc: G[place] [address] Phys: Kia Solares MD Acct: [id number] Dis Date: Status: DEP CLIPHONE #: [phone] Exam Date: 08/16/2022 151 FAX #: [phone] Reason: CHRONIC COUGH Report Has Been Amended EXAMS: CPT CODE: [id number] CT CHEST W/O CONTRAST 18808 Addendum - 08/18/2022 SIGNED 08/18/2022 ADDENDUM: [id number] CT/CTCHESTWO LOCATION: H65 at 0013 Reported and signed by: Slim Rhodes D.O. Report EXAM: - CT CHEST W/O CONTRAST LOCATION: U19 TECHNIQUE: Serial axial CT images were obtained from the supraclavicular region to the adrenal glands without the administration of intravenous contrast. Phase(s): Non-contrast Reformats: Standard coronal and sagittal reformats. This exam was performed according to ourdepartmental dose-optimization program, which includes automated exposure control, adjustment of the mA and/or kV according to patient size and/or use of iterative reconstruction technique. Unless otherwise specified, incidental findings do not require dedicated imaging follow-up. COMPARISON: Noneavailable. HISTORY: CHRONIC COUGH FINDINGS: THYROID: Normal. LYMPHADENOPATHY: There is no supraclavicular or axillary lymphadenopathy. No enlarged mediastinal or hilar lymph nodes. AIRWAYS: Minimal diffuse bronchiectasis. LUNGS/PLEURA: Mild scattered atelectasis noted bilaterally. Single PAGE 1 Signed Report (CONTINUED) Name: MICHELLE MEZA : 1950 Age/S: 71 / F [address] [place] [address] Unit #: [id number] Loc: GARETH Diaz [address] Phys: Kia Solares MD Acct: [id number] Dis Date: Status: DEP CLI PHONE #: [phone] Exam Date: 08/16/2022 1511 FAX #: [phone] Reason:CHRONIC COUGH Report Has Been Amended EXAMS: CPT CODE: [id number] CT CHEST W/O CONTRAST 83051 (Continued) calcified granuloma noted in the right middle lobe. No ground glass opacities or consolidations. No pleural effusion, pleural based masses, or calcifications. No suspicious pulmonary nodules. MEDIASTINUM: The heart and pericardium are unremarkable. The thoracic aorta is nonaneurysmal. Mild aortic atherosclerosis. Mild three-vessel coronary artery calcifications. The pulmonary trunk is normal in size. The esophagus is grossly unremarkable. VISUALIZED ABDOMEN: Indeterminant soft tissuedensity 1.1 cm left adrenal nodule (series 2 image 93). SOFT TISSUES: Unremarkable. BONES: No acuteosseous findings. Mild thoracic spine degenerative changes. IMPRESSION: No suspicious pulmonary nodules identified. Minimal diffuse bronchiectasis. Indeterminate soft tissue density 1.1 cm left adrenal nodule. Given size, this would be best assessed with multiphase contrast-enhanced MRI abdomen. at 2353 Reported and signed by: Naina Lagunas CC: Kia Solares MD Technologist:James Higgins, RT(R)(CT) CTDI: DLP: Trnscb Date/Time: 08/17/2022 (191) [email or web address] Orig Print D/T: S: 08/17/2022 (4725) PAGE 2 Signed Report- CT CHEST W/O [id number] 00:13:00 [facility] [place] : 1950 Sex: F Name: MICHELLE MEZA : 1950 Age/S: 71 / F [address] [place] [address] Unit #: [id number] Loc: [place] [address] Phys: Kia Solares MD Acct: [id number] Dis Date: Status: DEP CLIPHONE #: [phone] Exam Date: 08/16/2022 1511 FAX #: [phone] Reason: CHRONIC COUGH Report Has Been Amended EXAMS: CPT CODE: [id number] CT CHEST W/O CONTRAST 14903 Addendum - 08/18/2022 SIGNED 08/18/2022 ADDENDUM: [id number] CT/CTCHESTWO LOCATION: H65 at 0013 Reported and signed by: Slim Rhodes D.O. Report EXAM: - CT CHEST W/O CONTRAST LOCATION: U19 TECHNIQUE: Serial axial CT images were obtained from the supraclavicular region to the adrenal glands without the administration of intravenous contrast. Phase(s): Non-contrast Reformats: Standard coronal and sagittal reformats. This exam was performed according to our departmental dose-optimization program, which includes automated exposure control, adjustment of themA and/or kV according to patient size and/or use of iterative reconstruction technique. Unless otherwise specified, incidental findings do not require dedicated imaging follow-up. COMPARISON: None available. HISTORY: CHRONIC COUGH FINDINGS: THYROID: Normal. LYMPHADENOPATHY: There is no supraclavicular or axillary lymphadenopathy. No enlarged mediastinal or hilar lymph nodes. AIRWAYS: Minimal diffuse bronchiectasis. LUNGS/PLEURA: Mild scattered atelectasis noted bilaterally. Single PAGE 1 Signed Report (CONTINUED) Name: MICHELLE MEZA : 1950 Age/S: 71 / F [address] [place] [address] Unit #: [id number] Loc: [place] [address] Phys: Kia Solares MD Acct: [id number] Dis Date: Status: DEP CLI PHONE #: [phone] Exam Date: 08/16/2022 1511 FAX #: [phone] Reason: CHRONIC COUGH Report Has Been Amended EXAMS: CPT CODE: [id number] CT CHEST W/O CONTRAST 90446 (Continued) calcified granuloma noted in the right middle lobe. No ground glass opacities or consolidations. No pleural effusion, pleural based masses, or calcifications. No suspicious pulmonary nodules. MEDIASTINUM: The heart and pericardium are unremarkable. The thoracic aorta is nonaneurysmal. Mild aortic atherosclerosis. Mild three-vessel coronary artery calcifications. The pulmonary trunk is normal in size. The esophagus is grossly unremarkable. VISUALIZED ABDOMEN: Indeterminant soft tissuedensity 1.1 cm left adrenal nodule (series 2 image 93). SOFT TISSUES: Unremarkable. BONES: No acuteosseous findings. Mild thoracic spine degenerative changes. IMPRESSION: No suspicious pulmonary nodules identified. Minimal diffuse bronchiectasis. Indeterminate soft tissue density 1.1 cm left adrenal nodule. Given size, this would be best assessed with multiphase contrast-enhanced MRI abdomen. at 2353 Reported and signed by: Naina Lagunas CC: Kia Solares MD Technologist:James Higgins, RT(R)(CT) CTDI: DLP: Trnscb Date/Time: 08/17/2022 (2352) [email or web address] Orig Print D/T: S: 08/17/2022 (8270) PAGE 2 Signed ReportTSH REFLEX TO FREE [id number] 06:53:57* Test Item Value Reference Range Interpretation Comme nts TSH REFLEX TO FREE T4 (test code = 2834) 1.010 UIU/ML 0.400-4.100 [facility] has impo rtant pathology staff changes effective 07/25/2022. New pathology staff will provide uninterrupted, excellent patient care and clinical consultation. See URL: [email or web address]. UNLESS OTHERWISE INDICATED, ALL TESTING PERFORMED AT [facility] [address] [place] [address] QUANTITATIVE MANAGER: MICHELLE MARTINEZ M.D. CLIA NUMBER [id number] [place]. [id number] HARD STICK ONLY COLLECTED WHAT I COULD GETLIPID [id number] 05:24:40* Test Item Value Reference Range Interpretation Comme nts CHOLESTEROL (test code = 2210) 162 MG/DL <200 TRIGLYCERIDES (test code = 2232) 138 MG/DL <150 HDL CHOLESTEROL (test code = 2220) 59 MG/DL >39 CALC LDL CHOL (test code = 2237) 79 MG/DL <100 NOTE: CALCULATED LDL IS BASED ON ROBINSON-MONET METHOD WHICHINCLUDES ADJUSTABLE TRIGLYCERIDE:VLDL CHOLESTEROL RATIO.THIS FACTOR VARIES BY MEASURED TRIGLYCERIDE AND NON-HDLCHOLESTEROL CONCENTRATIONS WITH INCREASED CALCULATED LDL SEENIN HIGHER TRIGLYCERIDE OR LOWER NON-HDL SPECIMENS. FOR MOREINFORMATION, SEE CLIENT ANNOUNCEMENT AT [email or web address] RISK RATIO LDL/HDL (test code = 223) 1.34 RATIO <3.22 HARD STICK ONLY COLLECTED WHAT I COULD GETCOMPREHENSIVE METABOLIC PANEL 2022-08-10 05:24:40* Test Item Value Reference Range Interpretation Comme nts GLUCOSE (test code = 2217) 83 MG/DL 70-99 BUN (test code = 8) 15 MG/DL 8-23 CREATININE (test code = 2214) 1.05 MG/DL 0.60-1.30 eGFR (2020 CKD-EPI) (test code = 52239) 57 ML/MIN/1.73 >60 L The NKF-ASN Taskforce recommends use of Cystatin C to confirm eGFR inadults at risk for CKD. [facility] offers eGFR with Cystatin C-Creatinineusing the 2020 CKD-EPI eGFR_creat-cystat equation (order code 3057) toincrease the accuracy of estimated GFR. For more information, contactyour accounting software specialist or see announcement [email or web address] CALC BUN/CREAT (test code = 2234) 14 RATIO 6-28 SODIUM (test code = 2230) 141 MEQ/L 133-146 POTASSIUM (test code = 2227) 4.7 MEQ/L 3.5-5.4 CHLORIDE (test code = 2214) 105 MEQ/L 95-107 CARBON DIOXIDE (test code = 2205) 25 MEQ/L 19-31 CALCIUM (test code = 2208) 10.9 MG/DL 8.5-10.5 H PROTEIN, TOTAL (test code = 2229) 6.5 G/DL 6.1-8.3 ALBUMIN (test code = 2201) 4.2 G/DL 3.5-5.2 CALC GLOBULIN (test code = 2240) 2.3 G/DL 1.9-3.7 CALC A/G RATIO (test code = 2234) 1.8 RATIO 1.0-2.6 BILIRUBIN, TOTAL (test code = 2207) 0.3 MG/DL See_Comment [Automated me ssage] The system which generated this result transmitted reference range: <=1.2. The reference range was not used to interpret this result as normal/abnormal. ALKALINE PHOSPHATASE (test code = 2204) 71 U/L 40-142 AST (test code = 2218) 14 U/L 9-40 ALT (test code = 2219) 9 U/L 5-40 HARD STICK ONLY COLLECTED WHAT I COULD GETCOMPREHENSIVE METABOLIC PANEL [ADDED] 2022-08-10 00:00:00* Test Item Value Reference Range Interpretation Comme nts GLUCOSE (test code = 2217) 83 MG/DL BUN (test code = 2208) 15 MG/DL CREATININE (test code = 2214) 1.05 MG/DL eGFR (2020 CKD-EPI) (test co de = 88095) 57 ML/MIN/1.73 CALC BUN/CREAT (test code = 2235) 14 RATIO SODIUM (test code = 2231) 141 MEQ/L POTASSIUM (test code = 2228) 4.7 MEQ/L CHLORIDE (test code = 2215) 105 MEQ/L CARBON DIOXIDE (test code = 2206) 25 MEQ/L CALCIUM (test code = 2209) 10.9 MG/DL PROTEIN, TOTAL (test code = 2229) 6.5 G/DL ALBUMIN (test code = 2201) 4.2 G/DL CALC GLOBULIN (test code = 2240) 2.3 G/DL CALC A/G RATIO (test code = 2234) 1.8 RATIO BILIRUBIN, TOTAL (test code = 2207) 0.3 MG/DL ALKALINE PHOSPHATASE (test code = 2204) 71 U/L AST (test code = 2218) 14 U/L ALT (test code = 2219) 9 U/L Magan F AustinTSH REFLEX TO FREE T4 [ADDED]2022-08-10 00:00:00* Test Item Value Reference Range Interpretation Comme nts TSH REFLEX TO FREE T4 (test code = 2834) 1.010 UIU/ML Magan Goss AustinLIPID PANEL [ADDED]2022-08-10 00:00:00* Test Item Value Reference Range Interpretation Comme nts CHOLESTEROL (test code = 2210) 162 MG/DL TRIGLYCERIDES (test code = 2232) 138 MG/DL HDL CHOLESTEROL (test code = 2220) 59 MG/DL CALC LDL CHOL (test code = 2237) 79 MG/DL RISK RATIO LDL/HDL (test cod e = 2238) 1.34 RATIO Magan JohnsonCOMPREHENSIVE METABOLIC PANEL [ADDED]2022-08-10 00:00:00* Test Item Value Reference Range Interpretation Comme nts GLUCOSE (test code = 2217) 83 MG/DL BUN (test code = 2208) 15 MG/DL CREATININE (test code = 2214) 1.05 MG/DL eGFR (2020 CKD-EPI) (test co de = 95507) 57 ML/MIN/1.73 CALC BUN/CREAT (test code = 2235) 14 RATIO SODIUM (test code = 2231) 141 MEQ/L POTASSIUM (test code = 2228) 4.7 MEQ/L CHLORIDE (test code = 2215) 105 MEQ/L CARBON DIOXIDE (test code = 2206) 25 MEQ/L CALCIUM (test code = 2209) 10.9 MG/DL PROTEIN, TOTAL (test code = 2229) 6.5 G/DL ALBUMIN (test code = 2201) 4.2 G/DL CALC GLOBULIN (test code = 2240) 2.3 G/DL CALC A/G RATIO (test code = 2234) 1.8 RATIO BILIRUBIN, TOTAL (test code = 2207) 0.3 MG/DL ALKALINE PHOSPHATASE (test code = 2204) 71 U/L AST (test code = 2218) 14 U/L ALT (test code = 2219) 9 U/L Magan Goss AustinTSH REFLEX TO FREE T4 [ADDED]2022-08-10 00:00:00* Test Item Value Reference Range Interpretation Comme nts TSH REFLEX TO FREE T4 (test code = 2834) 1.010 UIU/ML Magan Goss AustinLIPID PANEL [ADDED]2022-08-10 00:00:00* Test Item Value Reference Range Interpretation Comme nts CHOLESTEROL (test code = 2210) 162 MG/DL TRIGLYCERIDES (test code = 2232) 138 MG/DL HDL CHOLESTEROL (test code = 2220) 59 MG/DL CALC LDL CHOL (test code = 2237) 79 MG/DL RISK RATIO LDL/HDL (test cod e = 2238) 1.34 RATIO Magan Goss AustinRENAL FUNCTION [id number] 06:50:34* Test Item Value Reference Range Interpretation Comme nts GLUCOSE (test code = 2217) 89 MG/DL 70-99 BUN (test code = 2208) 16 MG/DL 8-23 CREATININE (test code = 2214) 1.00 MG/DL 0.60-1.30 eGFR (2020 CKD-EPI) (test code = 78441) 61 ML/MIN/1.73 >60 CALC BUN/CREAT (test code = 2235) 16 RATIO 6-28 SODIUM (test code = 2231) 143 MEQ/L 133-146 POTASSIUM (test code = 2228) 5.2 MEQ/L 3.5-5.4 CHLORIDE (test code = 2215) 105 MEQ/L 95-107 CARBON DIOXIDE (test code = 2206) 22 MEQ/L 19-31 CALCIUM (test code = 2209) 10.4 MG/DL 8.5-10.5 PHOSPHORUS (test code = 2227) 3.5 MG/DL 2.5-4.5 ALBUMIN (test code = 2201) 4.0 G/DL 3.5-5.2 UNLESS OTHERWISE INDICATED, ALL TESTING PER[facility]MED [facility] [address] [place] [address] QUANTITATIVE MANAGER: BILLY GARCIA M.D. CLIA NUMBER [id number] [place]. [id number] RENAL FUNCTION PANEL [ADDED]2022-03-16 00:00:00* Test Item Value Reference Range Interpretation Comme nts GLUCOSE (test code = 2217) 89 MG/DL BUN (test code = 2208) 16 MG/DL CREATININE (test code = 2214) 1.00 MG/DL eGFR (2020 CKD-EPI) (test co de = 57195) 61 ML/MIN/1.73 CALC BUN/CREAT (test code = 2235) 16 RATIO SODIUM (test code = 2231) 143 MEQ/L POTASSIUM (test code = 2228) 5.2 MEQ/L CHLORIDE (test code = 2215) 105 MEQ/L CARBON DIOXIDE (test code = 2206) 22 MEQ/L CALCIUM (test code = 2209) 10.4 MG/DL PHOSPHORUS (test code = 2227) 3.5 MG/DL ALBUMIN (test code = 2201) 4.0 G/DL Magan Goss AustinRENAL FUNCTION PANEL [ADDED]2022-03-16 00:00:00* Test Item Value Reference Range Interpretation Comme nts GLUCOSE (test code = 2217) 89 MG/DL BUN (test code = 2208) 16 MG/DL CREATININE (test code = 2214) 1.00 MG/DL eGFR (2020 CKD-EPI) (test co de = 41556) 61 ML/MIN/1.73 CALC BUN/CREAT (test code = 2235) 16 RATIO SODIUM (test code = 2231) 143 MEQ/L POTASSIUM (test code = 2228) 5.2 MEQ/L CHLORIDE (test code = 2215) 105 MEQ/L CARBON DIOXIDE (test code = 2206) 22 MEQ/L CALCIUM (test code = 2209) 10.4 MG/DL PHOSPHORUS (test code = 2227) 3.5 MG/DL ALBUMIN (test code = 2201) 4.0 G/DL Magan Goss AustinRENAL FUNCTION PANEL [ADDED]2022-03-16 00:00:00* Test Item Value Reference Range Interpretation Comme nts GLUCOSE (test code = 2217) 89 MG/DL BUN (test code = 2208) 16 MG/DL CREATININE (test code = 2214) 1.00 MG/DL eGFR (2020 CKD-EPI) (test co de = 42313) 61 ML/MIN/1.73 CALC BUN/CREAT (test code = 2235) 16 RATIO SODIUM (test code = 2231) 143 MEQ/L POTASSIUM (test code = 2228) 5.2 MEQ/L CHLORIDE (test code = 2215) 105 MEQ/L CARBON DIOXIDE (test code = 2206) 22 MEQ/L CALCIUM (test code = 2209) 10.4 MG/DL PHOSPHORUS (test code = 2227) 3.5 MG/DL ALBUMIN (test code = 2201) 4.0 G/DL RENAL FUNCTION PANEL [ADDED]2022-03-16 00:00:00* Test Item Value Reference Range Interpretation Comme nts GLUCOSE (test code = 2217) 89 MG/DL BUN (test code = 2208) 16 MG/DL CREATININE (test code = 2214) 1.00 MG/DL eGFR (2020 CKD-EPI) (test co de = 16330) 61 ML/MIN/1.73 CALC BUN/CREAT (test code = 2235) 16 RATIO SODIUM (test code = 2231) 143 MEQ/L POTASSIUM (test code = 2228) 5.2 MEQ/L CHLORIDE (test code = 2215) 105 MEQ/L CARBON DIOXIDE (test code = 2206) 22 MEQ/L CALCIUM (test code = 2209) 10.4 MG/DL PHOSPHORUS (test code = 2227) 3.5 MG/DL ALBUMIN (test code = 2201) 4.0 G/DL TSH + FREE T4 [id number] 06:03:01* Test Item Value Reference Range Interpretation Comme nts TSH, THIRD GENERATION (test code = 2821) 2.280 UIU/ML 0.400-4.100 FREE T4 (THYROXINE) (test code = 2823) 1.66 NG/DL 0.80-1.90 UNLESS OTHERW ISE INDICATED, ALL TESTING PERFORMED [facility] [address] [place] [address] QUANTITATIVE MANAGER: BILLY GARCIA M.D. CLIA NUMBER [id number] [place]. [id number] COMPREHENSIVE METABOLIC [id number] 05:58:13* Test Item Value Reference Range Interpretation Comme nts GLUCOSE (test code = 2217) 83 MG/DL 70-99 BUN (test code = 2208) 24 MG/DL 8-23 H CREATININE (test code = 2214) 1.12 MG/DL 0.60-1.30 eGFR (2020 CKD-EPI) (test code = 66932) 53 ML/MIN/1.73 >60 L The NKF-ASN Taskforce recommends use of Cystatin C to confirm eGFR inadults at risk for CKD. [facility] offers eGFR with Cystatin C-Creatinineusing the 2020 CKD-EPI eGFR_creat-cystat equation (order code 3057) toincrease the accuracy of estimated GFR. For more information, contactyour accounting software specialist or see announcement [email or web address] CALC BUN/CREAT (test code = 2234) 21 RATIO 6-28 SODIUM (test code = 223) 146 MEQ/L 133-146 POTASSIUM (test code = 222) 4.7 MEQ/L 3.5-5.4 CHLORIDE (test code = 221) 107 MEQ/L 95-107 CARBON DIOXIDE (test code = 2206) 26 MEQ/L 19-31 CALCIUM (test code = 2208) 10.4 MG/DL 8.5-10.5 PROTEIN, TOTAL (test code = 2228) 6.3 G/DL 6.1-8.3 ALBUMIN (test code = 2200) 3.9 G/DL 3.5-5.2 CALC GLOBULIN (test code = 2240) 2.4 G/DL 1.9-3.7 CALC A/G RATIO (test code = 223) 1.6 RATIO 1.0-2.6 BILIRUBIN, TOTAL (test code = 2206) 0.3 MG/DL See_Comment [Automated me ssage] The system which generated this result transmitted reference range: <=1.2. The reference range was not used to interpret this result as normal/abnormal. ALKALINE PHOSPHATASE (test code = 2203) 50 U/L 40-142 AST (test code = 221) 13 U/L 9-40 ALT (test code = 221) 17 U/L 5-40 LIPID [id number] 05:58:13* Test Item Value Reference Range Interpretation Comme nts CHOLESTEROL (test code = 2210) 176 MG/DL <200 TRIGLYCERIDES (test code = 2232) 100 MG/DL <150 HDL CHOLESTEROL (test code = 2220) 75 MG/DL >39 CALC LDL CHOL (test code = 2237) 81 MG/DL <100 NOTE: CALCULATED LDL IS BASED ON ROBINSON-MONET METHOD WHICHINCLUDES ADJUSTABLE TRIGLYCERIDE:VLDL CHOLESTEROL RATIO.THIS FACTOR VARIES BY MEASURED TRIGLYCERIDE AND NON-HDLCHOLESTEROL CONCENTRATIONS WITH INCREASED CALCULATED LDL SEENIN HIGHER TRIGLYCERIDE OR LOWER NON-HDL SPECIMENS. FOR MOREINFORMATION, SEE CLIENT ANNOUNCEMENT AT [email or web address] RISK RATIO LDL/HDL (test code = 223) 1.08 RATIO <3.22 HEMOGLOBIN [id number] 02:24:15* Test Item Value Reference Range Interpretation Comme nts HEMOGLOBIN A1c (test code = 60205) 5.7 % 4.2-5.6 H COMPREHENSIVE METABOLIC PANEL [ADDED]2022-02-16 00:00:00* Test Item Value Reference Range Interpretation Comme nts GLUCOSE (test code = 2217) 83 MG/DL BUN (test code = 2208) 24 MG/DL CREATININE (test code = 2214) 1.12 MG/DL eGFR (2020 CKD-EPI) (test co de = 71960) 53 ML/MIN/1.73 CALC BUN/CREAT (test code = 2235) 21 RATIO SODIUM (test code = 2231) 146 MEQ/L POTASSIUM (test code = 2228) 4.7 MEQ/L CHLORIDE (test code = 2215) 107 MEQ/L CARBON DIOXIDE (test code = 2206) 26 MEQ/L CALCIUM (test code = 2209) 10.4 MG/DL PROTEIN, TOTAL (test code = 2229) 6.3 G/DL ALBUMIN (test code = 2201) 3.9 G/DL CALC GLOBULIN (test code = 2240) 2.4 G/DL CALC A/G RATIO (test code = 2234) 1.6 RATIO BILIRUBIN, TOTAL (test code = 2207) 0.3 MG/DL ALKALINE PHOSPHATASE (test code = 2204) 50 U/L AST (test code = 2218) 13 U/L ALT (test code = 2219) 17 U/L Magan JohnsonLIPID PANEL [ADDED]2022-02-16 00:00:00* Test Item Value Reference Range Interpretation Comme nts CHOLESTEROL (test code = 2210) 176 MG/DL TRIGLYCERIDES (test code = 2232) 100 MG/DL HDL CHOLESTEROL (test code = 2220) 75 MG/DL CALC LDL CHOL (test code = 2237) 81 MG/DL RISK RATIO LDL/HDL (test cod e = 2238) 1.08 RATIO Magan JohnsonTSH + FREE T4 PROFILE [ADDED]2022-02-16 00:00:00* Test Item Value Reference Range Interpretation Comme nts TSH, THIRD GENERATION (test code = 2821) 2.280 UIU/ML FREE T4 (THYROXINE) (test co de = 6603) 1.66 NG/DL Magan JohnsonHEMOGLOBIN A1c [ADDED]2022-02-16 00:00:00* Test Item Value Reference Range Interpretation Comme nts HEMOGLOBIN A1c (test code = 41755) 5.7 % Magan JohnsonCOMPREHENSIVE METABOLIC PANEL [ADDED]2022-02-16 00:00:00* Test Item Value Reference Range Interpretation Comme nts GLUCOSE (test code = 2217) 83 MG/DL BUN (test code = 2208) 24 MG/DL CREATININE (test code = 2214) 1.12 MG/DL eGFR (2020 CKD-EPI) (test co de = 30762) 53 ML/MIN/1.73 CALC BUN/CREAT (test code = 2235) 21 RATIO SODIUM (test code = 2231) 146 MEQ/L POTASSIUM (test code = 2228) 4.7 MEQ/L CHLORIDE (test code = 2215) 107 MEQ/L CARBON DIOXIDE (test code = 2206) 26 MEQ/L CALCIUM (test code = 2209) 10.4 MG/DL PROTEIN, TOTAL (test code = 2229) 6.3 G/DL ALBUMIN (test code = 2201) 3.9 G/DL CALC GLOBULIN (test code = 2240) 2.4 G/DL CALC A/G RATIO (test code = 2234) 1.6 RATIO BILIRUBIN, TOTAL (test code = 2207) 0.3 MG/DL ALKALINE PHOSPHATASE (test code = 2204) 50 U/L AST (test code = 2218) 13 U/L ALT (test code = 2219) 17 U/L Mgaan JohnsonLIPID PANEL [ADDED]2022-02-16 00:00:00* Test Item Value Reference Range Interpretation Comme nts CHOLESTEROL (test code = 2210) 176 MG/DL TRIGLYCERIDES (test code = 2232) 100 MG/DL HDL CHOLESTEROL (test code = 2220) 75 MG/DL CALC LDL CHOL (test code = 2237) 81 MG/DL RISK RATIO LDL/HDL (test cod e = 2238) 1.08 RATIO Magan JohnsonTSH + FREE T4 PROFILE [ADDED]2022-02-16 00:00:00* Test Item Value Reference Range Interpretation Comme nts TSH, THIRD GENERATION (test code = 2821) 2.280 UIU/ML FREE T4 (THYROXINE) (test co de = 0473) 1.66 NG/DL Magan F AustinHEMOGLOBIN A1c [ADDED]2022-02-16 00:00:00* Test Item Value Reference Range Interpretation Comme nts HEMOGLOBIN A1c (test code = 83599) 5.7 % Magan Goss AustinHEMOGLOBIN A1c [ADDED]2022-02-16 00:00:00* Test Item Value Reference Range Interpretation Comme nts HEMOGLOBIN A1c (test code = 02391) 5.7 % HEMOGLOBIN A1c [ADDED]2022-02-16 00:00:00* Test Item Value Reference Range Interpretation Comme nts HEMOGLOBIN A1c (test code = 32150) 5.7 % HEMOGLOBIN A1c [ADDED]2022-02-16 00:00:00* Test Item Value Reference Range Interpretation Comme nts HEMOGLOBIN A1c (test code = 17739) 5.7 % COMPREHENSIVE METABOLIC PANEL [ADDED]2022-02-16 00:00:00* Test Item Value Reference Range Interpretation Comme nts GLUCOSE (test code = 2217) 83 MG/DL BUN (test code = 2208) 24 MG/DL CREATININE (test code = 2214) 1.12 MG/DL eGFR (2020 CKD-EPI) (test co de = 11911) 53 ML/MIN/1.73 CALC BUN/CREAT (test code = 2235) 21 RATIO SODIUM (test code = 2231) 146 MEQ/L POTASSIUM (test code = 2228) 4.7 MEQ/L CHLORIDE (test code = 2215) 107 MEQ/L CARBON DIOXIDE (test code = 2206) 26 MEQ/L CALCIUM (test code = 2209) 10.4 MG/DL PROTEIN, TOTAL (test code = 2229) 6.3 G/DL ALBUMIN (test code = 2201) 3.9 G/DL CALC GLOBULIN (test code = 2240) 2.4 G/DL CALC A/G RATIO (test code = 2234) 1.6 RATIO BILIRUBIN, TOTAL (test code = 2207) 0.3 MG/DL ALKALINE PHOSPHATASE (test code = 2204) 50 U/L AST (test code = 2218) 13 U/L ALT (test code = 2219) 17 U/L COMPREHENSIVE METABOLIC PANEL [ADDED]2022-02-16 00:00:00* Test Item Value Reference Range Interpretation Comme nts GLUCOSE (test code = 2217) 83 MG/DL BUN (test code = 2208) 24 MG/DL CREATININE (test code = 2214) 1.12 MG/DL eGFR (2020 CKD-EPI) (test co de = 18204) 53 ML/MIN/1.73 CALC BUN/CREAT (test code = 2235) 21 RATIO SODIUM (test code = 2231) 146 MEQ/L POTASSIUM (test code = 2228) 4.7 MEQ/L CHLORIDE (test code = 2215) 107 MEQ/L CARBON DIOXIDE (test code = 2206) 26 MEQ/L CALCIUM (test code = 2209) 10.4 MG/DL PROTEIN, TOTAL (test code = 2229) 6.3 G/DL ALBUMIN (test code = 2201) 3.9 G/DL CALC GLOBULIN (test code = 2240) 2.4 G/DL CALC A/G RATIO (test code = 2234) 1.6 RATIO BILIRUBIN, TOTAL (test code = 2207) 0.3 MG/DL ALKALINE PHOSPHATASE (test code = 2204) 50 U/L AST (test code = 2218) 13 U/L ALT (test code = 2219) 17 U/L LIPID PANEL [ADDED]2022-02-16 00:00:00* Test Item Value Reference Range Interpretation Comme nts CHOLESTEROL (test code = 2210) 176 MG/DL TRIGLYCERIDES (test code = 2232) 100 MG/DL HDL CHOLESTEROL (test code = 2220) 75 MG/DL CALC LDL CHOL (test code = 2237) 81 MG/DL RISK RATIO LDL/HDL (test cod e = 2238) 1.08 RATIO LIPID PANEL [ADDED]2022-02-16 00:00:00* Test Item Value Reference Range Interpretation Comme nts CHOLESTEROL (test code = 2210) 176 MG/DL TRIGLYCERIDES (test code = 2232) 100 MG/DL HDL CHOLESTEROL (test code = 2220) 75 MG/DL CALC LDL CHOL (test code = 2237) 81 MG/DL RISK RATIO LDL/HDL (test cod e = 2238) 1.08 RATIO TSH + FREE T4 PROFILE [ADDED]2022-02-16 00:00:00* Test Item Value Reference Range Interpretation Comme nts TSH, THIRD GENERATION (test code = 2821) 2.280 UIU/ML FREE T4 (THYROXINE) (test co de = 2823) 1.66 NG/DL TSH + FREE T4 PROFILE [ADDED]2022-02-16 00:00:00* Test Item Value Reference Range Interpretation Comme nts TSH, THIRD GENERATION (test code = 2821) 2.280 UIU/ML FREE T4 (THYROXINE) (test co de = 2823) 1.66 NG/DL TSH + FREE T4 PROFILE [ADDED]2022-02-16 00:00:00* Test Item Value Reference Range Interpretation Comme nts TSH, THIRD GENERATION (test code = 2821) 2.280 UIU/ML FREE T4 (THYROXINE) (test co de = 2823) 1.66 NG/DL OCCULT BLD,FECAL,IMMUNOASSAY [id number] 12:22:13* Test Item Value Reference Range Interpretation Comme nts OCCULT BLD, FECAL (test code = 39758) NEGATIVE NEGATIVE UNLESS OTHER WILKERSON INDICATED, ALL TESTING PERFORMED [facility] [employer] [address] [place] [address] QUANTITATIVE MANAGER: BILLY GACRIA M.D. CLIA NUMBER [id number] [place]. [id number] OCCULT BLD,FECAL,IMMUNOASSAY [id number] 00:00:00* Test Item Value Reference Range Interpretation Comme nts OCCULT BLD, FECAL (test code = 83418) NEGATIVE Magan F AustinOCCULT BLD,FECAL,IMMUNOASSAY [id number] 00:00:00* Test Item Value Reference Range Interpretation Comme nts OCCULT BLD, FECAL (test code = 44482) NEGATIVE Magan F AustinOCCULT BLD,FECAL,IMMUNOASSAY [id number] 00:00:00* Test Item Value Reference Range Interpretation Comme nts OCCULT BLD, FECAL (test code = 45782) NEGATIVE OCCULT BLD,FECAL,IMMUNOASSAY [id number] 00:00:00* Test Item Value Reference Range Interpretation Comme nts OCCULT BLD, FECAL (test code = 70836) NEGATIVE OCCULT BLD,FECAL,IMMUNOASSAY [id number] 00:00:00* Test Item Value Reference Range Interpretation Comme nts OCCULT BLD, FECAL (test code = 48015) NEGATIVE OCCULT BLD,FECAL,IMMUNOASSAY [id number] 00:00:00* Test Item Value Reference Range Interpretation Comme nts OCCULT BLD, FECAL (test code = 77520) NEGATIVE OCCULT BLD,FECAL,IMMUNOASSAY [id number] 00:00:00* Test Item Value Reference Range Interpretation Comme nts OCCULT BLD, FECAL (test code = 74233) NEGATIVE OCCULT BLD,FECAL,IMMUNOASSAY [id number] 00:00:00* Test Item Value Reference Range Interpretation Comme nts OCCULT BLD, FECAL (test code = 95314) NEGATIVE OCCULT BLD,FECAL,IMMUNOASSAY [id number] 00:00:00* Test Item Value Reference Range Interpretation Comme nts OCCULT BLD, FECAL (test code = 88972) NEGATIVE OCCULT BLD,FECAL,IMMUNOASSAY [id number] 00:00:00* Test Item Value Reference Range Interpretation Comme nts OCCULT BLD, FECAL (test code = 70526) NEGATIVE TSH + FREE T4 [id number] 05:05:25* Test Item Value Reference Range Interpretation Comme nts TSH, THIRD GENERATION (test code = 2821) 0.977 UIU/ML 0.400-4.100 FREE T4 (THYROXINE) (test code = 2823) 1.46 NG/DL 0.80-1.90 UNLESS OTHERW ISE INDICATED, ALL TESTING PERFORMED ATCLINICAL PATHOLOGY [employer] [address] [place] [address] QUANTITATIVE MANAGER: BILLY GARCIA M.D. CLIA NUMBER [id number] [place]. [id number] LIPID [id number] 04:35:56* Test Item Value Reference Range Interpretation Comme nts CHOLESTEROL (test code = 2210) 148 MG/DL <200 TRIGLYCERIDES (test code = 2232) 145 MG/DL <150 HDL CHOLESTEROL (test code = 2220) 45 MG/DL >39 CALC LDL CHOL (test code = 2237) 78 MG/DL <100 NOTE: CALCULATED LDL IS BASED ON ROBINSON-MONET METHOD WHICHINCLUDES ADJUSTABLE TRIGLYCERIDE:VLDL CHOLESTEROL RATIO.THIS FACTOR VARIES BY MEASURED TRIGLYCERIDE AND NON-HDLCHOLESTEROL CONCENTRATIONS WITH INCREASED CALCULATED LDL SEENIN HIGHER TRIGLYCERIDE OR LOWER NON-HDL SPECIMENS. FOR MOREINFORMATION, SEE CLIENT ANNOUNCEMENT AT [email or web address] RISK RATIO LDL/HDL (test code = 2238) 1.73 RATIO <3.22 COMPREHENSIVE METABOLIC [id number] 04:35:56* Test Item Value Reference Range Interpretation Comme nts GLUCOSE (test code = 2217) 81 MG/DL 70-99 BUN (test code = 2208) 17 MG/DL 8-23 CREATININE (test code = 2214) 1.02 MG/DL 0.60-1.30 eGFR (2020 CKD-EPI) (test code = 26465) 60 ML/MIN/1.73 >60 L CALC BUN/CREAT (test code = 2235) 17 RATIO 6-28 SODIUM (test code = 223) 143 MEQ/L 133-146 POTASSIUM (test code = 2228) 4.6 MEQ/L 3.5-5.4 CHLORIDE (test code = 2215) 109 MEQ/L 95-107 H CARBON DIOXIDE (test code = 2206) 22 MEQ/L 19-31 CALCIUM (test code = 2209) 10.0 MG/DL 8.5-10.5 PROTEIN, TOTAL (test code = 2229) 6.7 G/DL 6.1-8.3 ALBUMIN (test code = 2201) 4.0 G/DL 3.5-5.2 CALC GLOBULIN (test code = 2240) 2.7 G/DL 1.9-3.7 CALC A/G RATIO (test code = 2234) 1.5 RATIO 1.0-2.6 BILIRUBIN, TOTAL (test code = 2207) 0.3 MG/DL See_Comment [Automated me ssage] The system which generated this result transmitted reference range: <=1.2. The reference range was not used to interpret this result as normal/abnormal. ALKALINE PHOSPHATASE (test code = 2204) 58 U/L 40-142 AST (test code = 2218) 21 U/L 9-40 ALT (test code = 2219) 18 U/L 5-40 COMPREHENSIVE METABOLIC [id number] 00:00:00* Test Item Value Reference Range Interpretation Comme nts GLUCOSE (test code = 2217) 81 MG/DL BUN (test code = 2208) 17 MG/DL CREATININE (test code = 2214) 1.02 MG/DL eGFR (2020 CKD-EPI) (test co de = 37543) 60 ML/MIN/1.73 CALC BUN/CREAT (test code = 2235) 17 RATIO SODIUM (test code = 2231) 143 MEQ/L POTASSIUM (test code = 2228) 4.6 MEQ/L CHLORIDE (test code = 2215) 109 MEQ/L CARBON DIOXIDE (test code = 2206) 22 MEQ/L CALCIUM (test code = 2209) 10.0 MG/DL PROTEIN, TOTAL (test code = 2229) 6.7 G/DL ALBUMIN (test code = 2201) 4.0 G/DL CALC GLOBULIN (test code = 2240) 2.7 G/DL CALC A/G RATIO (test code = 2234) 1.5 RATIO BILIRUBIN, TOTAL (test code = 2207) 0.3 MG/DL ALKALINE PHOSPHATASE (test code = 2204) 58 U/L AST (test code = 2218) 21 U/L ALT (test code = 2219) 18 U/L Magan JohnsonTSH + FREE T4 [id number] 00:00:00* Test Item Value Reference Range Interpretation Comme nts TSH, THIRD GENERATION (test code = 2821) 0.977 UIU/ML FREE T4 (THYROXINE) (test co de = 2823) 1.46 NG/DL Magan JohnsonLIPID [id number] 00:00:00* Test Item Value Reference Range Interpretation Comme nts CHOLESTEROL (test code = 2210) 148 MG/DL TRIGLYCERIDES (test code = 2232) 145 MG/DL HDL CHOLESTEROL (test code = 2220) 45 MG/DL CALC LDL CHOL (test code = 2237) 78 MG/DL RISK RATIO LDL/HDL (test cod e = 2238) 1.73 RATIO Magan JohnsonCOMPREHENSIVE METABOLIC [id number] 00:00:00* Test Item Value Reference Range Interpretation Comme nts GLUCOSE (test code = 2217) 81 MG/DL BUN (test code = 2208) 17 MG/DL CREATININE (test code = 2214) 1.02 MG/DL eGFR (2020 CKD-EPI) (test co de = 10678) 60 ML/MIN/1.73 CALC BUN/CREAT (test code = 2235) 17 RATIO SODIUM (test code = 2231) 143 MEQ/L POTASSIUM (test code = 2228) 4.6 MEQ/L CHLORIDE (test code = 2215) 109 MEQ/L CARBON DIOXIDE (test code = 2206) 22 MEQ/L CALCIUM (test code = 2209) 10.0 MG/DL PROTEIN, TOTAL (test code = 2229) 6.7 G/DL ALBUMIN (test code = 2201) 4.0 G/DL CALC GLOBULIN (test code = 2240) 2.7 G/DL CALC A/G RATIO (test code = 2234) 1.5 RATIO BILIRUBIN, TOTAL (test code = 2207) 0.3 MG/DL ALKALINE PHOSPHATASE (test code = 2204) 58 U/L AST (test code = 2218) 21 U/L ALT (test code = 2219) 18 U/L Magan JohnsonTSH + FREE T4 [id number] 00:00:00* Test Item Value Reference Range Interpretation Comme nts TSH, THIRD GENERATION (test code = 2821) 0.977 UIU/ML FREE T4 (THYROXINE) (test co de = 2823) 1.46 NG/DL Magan JohnsonLIPID [id number] 00:00:00* Test Item Value Reference Range Interpretation Comme nts CHOLESTEROL (test code = 2210) 148 MG/DL TRIGLYCERIDES (test code = 2232) 145 MG/DL HDL CHOLESTEROL (test code = 2220) 45 MG/DL CALC LDL CHOL (test code = 2237) 78 MG/DL RISK RATIO LDL/HDL (test cod e = 2238) 1.73 RATIO Magan JohnsonLIPID [id number] 00:00:00* Test Item Value Reference Range Interpretation Comme nts CHOLESTEROL (test code = 2210) 148 MG/DL TRIGLYCERIDES (test code = 2232) 145 MG/DL HDL CHOLESTEROL (test code = 2220) 45 MG/DL CALC LDL CHOL (test code = 2237) 78 MG/DL RISK RATIO LDL/HDL (test cod e = 2238) 1.73 RATIO COMPREHENSIVE METABOLIC [id number] 00:00:00* Test Item Value Reference Range Interpretation Comme nts GLUCOSE (test code = 2217) 81 MG/DL BUN (test code = 2208) 17 MG/DL CREATININE (test code = 2214) 1.02 MG/DL eGFR (2020 CKD-EPI) (test co de = 20474) 60 ML/MIN/1.73 CALC BUN/CREAT (test code = 2235) 17 RATIO SODIUM (test code = 2231) 143 MEQ/L POTASSIUM (test code = 2228) 4.6 MEQ/L CHLORIDE (test code = 2215) 109 MEQ/L CARBON DIOXIDE (test code = 2206) 22 MEQ/L CALCIUM (test code = 2209) 10.0 MG/DL PROTEIN, TOTAL (test code = 2229) 6.7 G/DL ALBUMIN (test code = 2201) 4.0 G/DL CALC GLOBULIN (test code = 2240) 2.7 G/DL CALC A/G RATIO (test code = 2234) 1.5 RATIO BILIRUBIN, TOTAL (test code = 2207) 0.3 MG/DL ALKALINE PHOSPHATASE (test code = 2204) 58 U/L AST (test code = 2218) 21 U/L ALT (test code = 2219) 18 U/L TSH + FREE T4 [id number] 00:00:00* Test Item Value Reference Range Interpretation Comme nts TSH, THIRD GENERATION (test code = 2821) 0.977 UIU/ML FREE T4 (THYROXINE) (test co de = 2823) 1.46 NG/DL TSH + FREE T4 [id number] 00:00:00* Test Item Value Reference Range Interpretation Comme nts TSH, THIRD GENERATION (test code = 2821) 0.977 UIU/ML FREE T4 (THYROXINE) (test co de = 2823) 1.46 NG/DL LIPID [id number] 00:00:00* Test Item Value Reference Range Interpretation Comme nts CHOLESTEROL (test code = 2210) 148 MG/DL TRIGLYCERIDES (test code = 2232) 145 MG/DL HDL CHOLESTEROL (test code = 2220) 45 MG/DL CALC LDL CHOL (test code = 2237) 78 MG/DL RISK RATIO LDL/HDL (test cod e = 2238) 1.73 RATIO LIPID [id number] 00:00:00* Test Item Value Reference Range Interpretation Comme nts CHOLESTEROL (test code = 2210) 148 MG/DL TRIGLYCERIDES (test code = 2232) 145 MG/DL HDL CHOLESTEROL (test code = 2220) 45 MG/DL CALC LDL CHOL (test code = 2237) 78 MG/DL RISK RATIO LDL/HDL (test cod e = 2238) 1.73 RATIO COMPREHENSIVE METABOLIC [id number] 00:00:00* Test Item Value Reference Range Interpretation Comme nts GLUCOSE (test code = 2217) 81 MG/DL BUN (test code = 2208) 17 MG/DL CREATININE (test code = 2214) 1.02 MG/DL eGFR (2020 CKD-EPI) (test co de = 38325) 60 ML/MIN/1.73 CALC BUN/CREAT (test code = 2235) 17 RATIO SODIUM (test code = 2231) 143 MEQ/L POTASSIUM (test code = 2228) 4.6 MEQ/L CHLORIDE (test code = 2215) 109 MEQ/L CARBON DIOXIDE (test code = 2206) 22 MEQ/L CALCIUM (test code = 2209) 10.0 MG/DL PROTEIN, TOTAL (test code = 2229) 6.7 G/DL ALBUMIN (test code = 2201) 4.0 G/DL CALC GLOBULIN (test code = 2240) 2.7 G/DL CALC A/G RATIO (test code = 2234) 1.5 RATIO BILIRUBIN, TOTAL (test code = 2207) 0.3 MG/DL ALKALINE PHOSPHATASE (test code = 2204) 58 U/L AST (test code = 2218) 21 U/L ALT (test code = 2219) 18 U/L COMPREHENSIVE METABOLIC [id number] 00:00:00* Test Item Value Reference Range Interpretation Comme nts GLUCOSE (test code = 2217) 81 MG/DL BUN (test code = 2208) 17 MG/DL CREATININE (test code = 2214) 1.02 MG/DL eGFR (2020 CKD-EPI) (test co de = 86768) 60 ML/MIN/1.73 CALC BUN/CREAT (test code = 2235) 17 RATIO SODIUM (test code = 2231) 143 MEQ/L POTASSIUM (test code = 2228) 4.6 MEQ/L CHLORIDE (test code = 2215) 109 MEQ/L CARBON DIOXIDE (test code = 2206) 22 MEQ/L CALCIUM (test code = 2209) 10.0 MG/DL PROTEIN, TOTAL (test code = 2229) 6.7 G/DL ALBUMIN (test code = 2201) 4.0 G/DL CALC GLOBULIN (test code = 2240) 2.7 G/DL CALC A/G RATIO (test code = 2234) 1.5 RATIO BILIRUBIN, TOTAL (test code = 2207) 0.3 MG/DL ALKALINE PHOSPHATASE (test code = 2204) 58 U/L AST (test code = 2218) 21 U/L ALT (test code = 2219) 18 U/L TSH + FREE T4 [id number] 00:00:00* Test Item Value Reference Range Interpretation Comme nts TSH, THIRD GENERATION (test code = 2821) 0.977 UIU/ML FREE T4 (THYROXINE) (test co de = 2823) 1.46 NG/DL TSH + FREE T4 [id number] 00:00:00* Test Item Value Reference Range Interpretation Comme nts TSH, THIRD GENERATION (test code = 2821) 0.977 UIU/ML FREE T4 (THYROXINE) (test co de = 2823) 1.46 NG/DL TSH + FREE T4 [id number] 00:00:00* Test Item Value Reference Range Interpretation Comme nts TSH, THIRD GENERATION (test code = 2821) 0.977 UIU/ML FREE T4 (THYROXINE) (test co de = 2823) 1.46 NG/DL LIPID [id number] 00:00:00* Test Item Value Reference Range Interpretation Comme nts CHOLESTEROL (test code = 2210) 148 MG/DL TRIGLYCERIDES (test code = 2232) 145 MG/DL HDL CHOLESTEROL (test code = 2220) 45 MG/DL CALC LDL CHOL (test code = 2237) 78 MG/DL RISK RATIO LDL/HDL (test cod e = 2238) 1.73 RATIO LIPID [id number] 00:00:00* Test Item Value Reference Range Interpretation Comme nts CHOLESTEROL (test code = 2210) 148 MG/DL TRIGLYCERIDES (test code = 2232) 145 MG/DL HDL CHOLESTEROL (test code = 2220) 45 MG/DL CALC LDL CHOL (test code = 2237) 78 MG/DL RISK RATIO LDL/HDL (test cod e = 2238) 1.73 RATIO COMPREHENSIVE METABOLIC [id number] 00:00:00* Test Item Value Reference Range Interpretation Comme nts GLUCOSE (test code = 2217) 81 MG/DL BUN (test code = 2208) 17 MG/DL CREATININE (test code = 2214) 1.02 MG/DL eGFR (2020 CKD-EPI) (test co de = 79160) 60 ML/MIN/1.73 CALC BUN/CREAT (test code = 2235) 17 RATIO SODIUM (test code = 2231) 143 MEQ/L POTASSIUM (test code = 2228) 4.6 MEQ/L CHLORIDE (test code = 2215) 109 MEQ/L CARBON DIOXIDE (test code = 2206) 22 MEQ/L CALCIUM (test code = 2209) 10.0 MG/DL PROTEIN, TOTAL (test code = 2229) 6.7 G/DL ALBUMIN (test code = 2201) 4.0 G/DL CALC GLOBULIN (test code = 2240) 2.7 G/DL CALC A/G RATIO (test code = 2234) 1.5 RATIO BILIRUBIN, TOTAL (test code = 2207) 0.3 MG/DL ALKALINE PHOSPHATASE (test code = 2204) 58 U/L AST (test code = 2218) 21 U/L ALT (test code = 2219) 18 U/L COMPREHENSIVE METABOLIC [id number] 00:00:00* Test Item Value Reference Range Interpretation Comme nts GLUCOSE (test code = 2217) 81 MG/DL BUN (test code = 2208) 17 MG/DL CREATININE (test code = 2214) 1.02 MG/DL eGFR (2020 CKD-EPI) (test co de = 82348) 60 ML/MIN/1.73 CALC BUN/CREAT (test code = 2235) 17 RATIO SODIUM (test code = 2231) 143 MEQ/L POTASSIUM (test code = 2228) 4.6 MEQ/L CHLORIDE (test code = 2215) 109 MEQ/L CARBON DIOXIDE (test code = 2206) 22 MEQ/L CALCIUM (test code = 2209) 10.0 MG/DL PROTEIN, TOTAL (test code = 2229) 6.7 G/DL ALBUMIN (test code = 2201) 4.0 G/DL CALC GLOBULIN (test code = 2240) 2.7 G/DL CALC A/G RATIO (test code = 2234) 1.5 RATIO BILIRUBIN, TOTAL (test code = 2207) 0.3 MG/DL ALKALINE PHOSPHATASE (test code = 2204) 58 U/L AST (test code = 2218) 21 U/L ALT (test code = 2219) 18 U/L TSH + FREE T4 [id number] 00:00:00* Test Item Value Reference Range Interpretation Comme nts TSH, THIRD GENERATION (test code = 2821) 0.977 UIU/ML FREE T4 (THYROXINE) (test co de = 2823) 1.46 NG/DL TSH + FREE T4 [id number] 00:00:00* Test Item Value Reference Range Interpretation Comme nts TSH, THIRD GENERATION (test code = 2821) 0.977 UIU/ML FREE T4 (THYROXINE) (test co de = 2823) 1.46 NG/DL TSH + FREE T4 [id number] 00:00:00* Test Item Value Reference Range Interpretation Comme nts TSH, THIRD GENERATION (test code = 2821) 0.977 UIU/ML FREE T4 (THYROXINE) (test co de = 2823) 1.46 NG/DL TSH + FREE T4 [id number] 05:01:49* Test Item Value Reference Range Interpretation Comme nts TSH, THIRD GENERATION (test code = 2821) 0.653 UIU/ML 0.400-4.100 FREE T4 (THYROXINE) (test code = 2823) 1.81 NG/DL 0.80-1.90 UNLESS OTHERW ISE INDICATED, ALL TESTING PERFORMED ATCLINICAL PATHOLOGY [employer] [address] [place] [address] QUANTITATIVE MANAGER: BILLY GARCIA M.D. CLIA NUMBER [id number] [place]. [id number] LIPID [id number] 04:07:45* Test Item Value Reference Range Interpretation Comme nts CHOLESTEROL (test code = 2210) 146 MG/DL <200 TRIGLYCERIDES (test code = 2232) 147 MG/DL <150 HDL CHOLESTEROL (test code = 2220) 39 MG/DL >39 L CALC LDL CHOL (test code = 2237) 83 MG/DL <100 NOTE: CALCULATED LDL IS BASED ON ROBINSON-MONET METHOD WHICHINCLUDES ADJUSTABLE TRIGLYCERIDE:VLDL CHOLESTEROL RATIO.THIS FACTOR VARIES BY MEASURED TRIGLYCERIDE AND NON-HDLCHOLESTEROL CONCENTRATIONS WITH INCREASED CALCULATED LDL SEENIN HIGHER TRIGLYCERIDE OR LOWER NON-HDL SPECIMENS. FOR MOREINFORMATION, SEE CLIENT ANNOUNCEMENT AT [email or web address] RISK RATIO LDL/HDL (test code = 2238) 2.13 RATIO <3.22 COMPREHENSIVE METABOLIC [id number] 04:07:45* Test Item Value Reference Range Interpretation Comme nts GLUCOSE (test code = 2217) 98 MG/DL 70-99 BUN (test code = 2208) 20 MG/DL 8-23 CREATININE (test code = 2214) 0.92 MG/DL 0.60-1.30 eGFR (2020 CKD-EPI) (test code = 35157) 67 ML/MIN/1.73 >60 CALC BUN/CREAT (test code = 223) 22 RATIO 6-28 SODIUM (test code = 223) 139 MEQ/L 133-146 POTASSIUM (test code = 2228) 4.6 MEQ/L 3.5-5.4 CHLORIDE (test code = 221) 103 MEQ/L 95-107 CARBON DIOXIDE (test code = 2206) 22 MEQ/L 19-31 CALCIUM (test code = 220) 10.7 MG/DL 8.5-10.5 H PROTEIN, TOTAL (test code = 2228) 6.9 G/DL 6.1-8.3 ALBUMIN (test code = 2200) 4.1 G/DL 3.5-5.2 CALC GLOBULIN (test code = 2240) 2.8 G/DL 1.9-3.7 CALC A/G RATIO (test code = 223) 1.5 RATIO 1.0-2.6 BILIRUBIN, TOTAL (test code = 2206) 0.3 MG/DL See_Comment [Automated me ssage] The system which generated this result transmitted reference range: <=1.2. The reference range was not used to interpret this result as normal/abnormal. ALKALINE PHOSPHATASE (test code = 2203) 55 U/L 40-142 AST (test code = 2218) 20 U/L 9-40 ALT (test code = 2219) 18 U/L 5-40 LIPID [id number] 00:00:00* Test Item Value Reference Range Interpretation Comme nts CHOLESTEROL (test code = 2210) 146 MG/DL TRIGLYCERIDES (test code = 2232) 147 MG/DL HDL CHOLESTEROL (test code = 2220) 39 MG/DL CALC LDL CHOL (test code = 2237) 83 MG/DL RISK RATIO LDL/HDL (test cod e = 2238) 2.13 RATIO Magan F AustinCOMPREHENSIVE METABOLIC [id number] 00:00:00* Test Item Value Reference Range Interpretation Comme nts GLUCOSE (test code = 7) 98 MG/DL BUN (test code = 2207) 20 MG/DL CREATININE (test code = 2214) 0.92 MG/DL eGFR (2020 CKD-EPI) (test co de = 35183) 67 ML/MIN/1.73 CALC BUN/CREAT (test code = 2235) 22 RATIO SODIUM (test code = 2231) 139 MEQ/L POTASSIUM (test code = 2228) 4.6 MEQ/L CHLORIDE (test code = 2215) 103 MEQ/L CARBON DIOXIDE (test code = 2206) 22 MEQ/L CALCIUM (test code = 2209) 10.7 MG/DL PROTEIN, TOTAL (test code = 2229) 6.9 G/DL ALBUMIN (test code = 2201) 4.1 G/DL CALC GLOBULIN (test code = 2240) 2.8 G/DL CALC A/G RATIO (test code = 2234) 1.5 RATIO BILIRUBIN, TOTAL (test code = 2207) 0.3 MG/DL ALKALINE PHOSPHATASE (test code = 2204) 55 U/L AST (test code = 2218) 20 U/L ALT (test code = 2219) 18 U/L Magan JohnsonTS + FREE T4 [id number] 00:00:00* Test Item Value Reference Range Interpretation Comme nts TSH, THIRD GENERATION (test code = 2821) 0.653 UIU/ML FREE T4 (THYROXINE) (test co de = 2823) 1.81 NG/DL Magan JohnsonLIPID [id number] 00:00:00* Test Item Value Reference Range Interpretation Comme nts CHOLESTEROL (test code = 2210) 146 MG/DL TRIGLYCERIDES (test code = 2232) 147 MG/DL HDL CHOLESTEROL (test code = 2220) 39 MG/DL CALC LDL CHOL (test code = 2237) 83 MG/DL RISK RATIO LDL/HDL (test cod e = 2238) 2.13 RATIO Magan JohnsonCOMPREHENSIVE METABOLIC [id number] 00:00:00* Test Item Value Reference Range Interpretation Comme nts GLUCOSE (test code = 2217) 98 MG/DL BUN (test code = 2208) 20 MG/DL CREATININE (test code = 2214) 0.92 MG/DL eGFR (2020 CKD-EPI) (test co de = 36575) 67 ML/MIN/1.73 CALC BUN/CREAT (test code = 2235) 22 RATIO SODIUM (test code = 2231) 139 MEQ/L POTASSIUM (test code = 2228) 4.6 MEQ/L CHLORIDE (test code = 2215) 103 MEQ/L CARBON DIOXIDE (test code = 2206) 22 MEQ/L CALCIUM (test code = 2209) 10.7 MG/DL PROTEIN, TOTAL (test code = 2229) 6.9 G/DL ALBUMIN (test code = 2201) 4.1 G/DL CALC GLOBULIN (test code = 2240) 2.8 G/DL CALC A/G RATIO (test code = 2234) 1.5 RATIO BILIRUBIN, TOTAL (test code = 2207) 0.3 MG/DL ALKALINE PHOSPHATASE (test code = 2204) 55 U/L AST (test code = 2218) 20 U/L ALT (test code = 2219) 18 U/L Magan JohnsonTS + FREE T4 [id number] 00:00:00* Test Item Value Reference Range Interpretation Comme nts TSH, THIRD GENERATION (test code = 2821) 0.653 UIU/ML FREE T4 (THYROXINE) (test co de = 2823) 1.81 NG/DL Magan JohnsonLIPID [id number] 00:00:00* Test Item Value Reference Range Interpretation Comme nts CHOLESTEROL (test code = 2210) 146 MG/DL TRIGLYCERIDES (test code = 2232) 147 MG/DL HDL CHOLESTEROL (test code = 2220) 39 MG/DL CALC LDL CHOL (test code = 2237) 83 MG/DL RISK RATIO LDL/HDL (test cod e = 2238) 2.13 RATIO COMPREHENSIVE METABOLIC [id number] 00:00:00* Test Item Value Reference Range Interpretation Comme nts GLUCOSE (test code = 2217) 98 MG/DL BUN (test code = 2208) 20 MG/DL CREATININE (test code = 2214) 0.92 MG/DL eGFR (2020 CKD-EPI) (test co de = 62793) 67 ML/MIN/1.73 CALC BUN/CREAT (test code = 2235) 22 RATIO SODIUM (test code = 2231) 139 MEQ/L POTASSIUM (test code = 2228) 4.6 MEQ/L CHLORIDE (test code = 2215) 103 MEQ/L CARBON DIOXIDE (test code = 2206) 22 MEQ/L CALCIUM (test code = 2209) 10.7 MG/DL PROTEIN, TOTAL (test code = 2229) 6.9 G/DL ALBUMIN (test code = 2201) 4.1 G/DL CALC GLOBULIN (test code = 2240) 2.8 G/DL CALC A/G RATIO (test code = 2234) 1.5 RATIO BILIRUBIN, TOTAL (test code = 2207) 0.3 MG/DL ALKALINE PHOSPHATASE (test code = 2204) 55 U/L AST (test code = 2218) 20 U/L ALT (test code = 2219) 18 U/L TSH + FREE T4 [id number] 00:00:00* Test Item Value Reference Range Interpretation Comme nts TSH, THIRD GENERATION (test code = 2821) 0.653 UIU/ML FREE T4 (THYROXINE) (test co de = 2823) 1.81 NG/DL TSH + FREE T4 [id number] 00:00:00* Test Item Value Reference Range Interpretation Comme nts TSH, THIRD GENERATION (test code = 2821) 0.653 UIU/ML FREE T4 (THYROXINE) (test co de = 2823) 1.81 NG/DL LIPID [id number] 00:00:00* Test Item Value Reference Range Interpretation Comme nts CHOLESTEROL (test code = 2210) 146 MG/DL TRIGLYCERIDES (test code = 2232) 147 MG/DL HDL CHOLESTEROL (test code = 2220) 39 MG/DL CALC LDL CHOL (test code = 2237) 83 MG/DL RISK RATIO LDL/HDL (test cod e = 2238) 2.13 RATIO LIPID [id number] 00:00:00* Test Item Value Reference Range Interpretation Comme nts CHOLESTEROL (test code = 2210) 146 MG/DL TRIGLYCERIDES (test code = 2232) 147 MG/DL HDL CHOLESTEROL (test code = 2220) 39 MG/DL CALC LDL CHOL (test code = 2237) 83 MG/DL RISK RATIO LDL/HDL (test cod e = 2238) 2.13 RATIO COMPREHENSIVE METABOLIC [id number] 00:00:00* Test Item Value Reference Range Interpretation Comme nts GLUCOSE (test code = 2217) 98 MG/DL BUN (test code = 2208) 20 MG/DL CREATININE (test code = 2214) 0.92 MG/DL eGFR (2020 CKD-EPI) (test co de = 91142) 67 ML/MIN/1.73 CALC BUN/CREAT (test code = 2235) 22 RATIO SODIUM (test code = 2231) 139 MEQ/L POTASSIUM (test code = 2228) 4.6 MEQ/L CHLORIDE (test code = 2215) 103 MEQ/L CARBON DIOXIDE (test code = 2206) 22 MEQ/L CALCIUM (test code = 2209) 10.7 MG/DL PROTEIN, TOTAL (test code = 2229) 6.9 G/DL ALBUMIN (test code = 2201) 4.1 G/DL CALC GLOBULIN (test code = 2240) 2.8 G/DL CALC A/G RATIO (test code = 2234) 1.5 RATIO BILIRUBIN, TOTAL (test code = 2207) 0.3 MG/DL ALKALINE PHOSPHATASE (test code = 2204) 55 U/L AST (test code = 2218) 20 U/L ALT (test code = 2219) 18 U/L COMPREHENSIVE METABOLIC [id number] 00:00:00* Test Item Value Reference Range Interpretation Comme nts GLUCOSE (test code = 2217) 98 MG/DL BUN (test code = 2208) 20 MG/DL CREATININE (test code = 2214) 0.92 MG/DL eGFR (2020 CKD-EPI) (test co de = 96727) 67 ML/MIN/1.73 CALC BUN/CREAT (test code = 2235) 22 RATIO SODIUM (test code = 2231) 139 MEQ/L POTASSIUM (test code = 2228) 4.6 MEQ/L CHLORIDE (test code = 2215) 103 MEQ/L CARBON DIOXIDE (test code = 2206) 22 MEQ/L CALCIUM (test code = 2209) 10.7 MG/DL PROTEIN, TOTAL (test code = 2229) 6.9 G/DL ALBUMIN (test code = 2201) 4.1 G/DL CALC GLOBULIN (test code = 2240) 2.8 G/DL CALC A/G RATIO (test code = 2234) 1.5 RATIO BILIRUBIN, TOTAL (test code = 2207) 0.3 MG/DL ALKALINE PHOSPHATASE (test code = 2204) 55 U/L AST (test code = 2218) 20 U/L ALT (test code = 2219) 18 U/L TSH + FREE T4 [id number] 00:00:00* Test Item Value Reference Range Interpretation Comme nts TSH, THIRD GENERATION (test code = 2821) 0.653 UIU/ML FREE T4 (THYROXINE) (test co de = 2823) 1.81 NG/DL TSH + FREE T4 [id number] 00:00:00* Test Item Value Reference Range Interpretation Comme nts TSH, THIRD GENERATION (test code = 2821) 0.653 UIU/ML FREE T4 (THYROXINE) (test co de = 2823) 1.81 NG/DL TSH + FREE T4 [id number] 00:00:00* Test Item Value Reference Range Interpretation Comme nts TSH, THIRD GENERATION (test code = 2821) 0.653 UIU/ML FREE T4 (THYROXINE) (test co de = 2823) 1.81 NG/DL LIPID [id number] 00:00:00* Test Item Value Reference Range Interpretation Comme nts CHOLESTEROL (test code = 2210) 146 MG/DL TRIGLYCERIDES (test code = 2232) 147 MG/DL HDL CHOLESTEROL (test code = 2220) 39 MG/DL CALC LDL CHOL (test code = 2237) 83 MG/DL RISK RATIO LDL/HDL (test cod e = 2238) 2.13 RATIO LIPID [id number] 00:00:00* Test Item Value Reference Range Interpretation Comme nts CHOLESTEROL (test code = 2210) 146 MG/DL TRIGLYCERIDES (test code = 2232) 147 MG/DL HDL CHOLESTEROL (test code = 2220) 39 MG/DL CALC LDL CHOL (test code = 2237) 83 MG/DL RISK RATIO LDL/HDL (test cod e = 2238) 2.13 RATIO COMPREHENSIVE METABOLIC [id number] 00:00:00* Test Item Value Reference Range Interpretation Comme nts GLUCOSE (test code = 2217) 98 MG/DL BUN (test code = 2208) 20 MG/DL CREATININE (test code = 2214) 0.92 MG/DL eGFR (2020 CKD-EPI) (test co de = 20519) 67 ML/MIN/1.73 CALC BUN/CREAT (test code = 2235) 22 RATIO SODIUM (test code = 2231) 139 MEQ/L POTASSIUM (test code = 2228) 4.6 MEQ/L CHLORIDE (test code = 2215) 103 MEQ/L CARBON DIOXIDE (test code = 2206) 22 MEQ/L CALCIUM (test code = 2209) 10.7 MG/DL PROTEIN, TOTAL (test code = 2229) 6.9 G/DL ALBUMIN (test code = 2201) 4.1 G/DL CALC GLOBULIN (test code = 2240) 2.8 G/DL CALC A/G RATIO (test code = 2234) 1.5 RATIO BILIRUBIN, TOTAL (test code = 2207) 0.3 MG/DL ALKALINE PHOSPHATASE (test code = 2204) 55 U/L AST (test code = 2218) 20 U/L ALT (test code = 2219) 18 U/L COMPREHENSIVE METABOLIC [id number] 00:00:00* Test Item Value Reference Range Interpretation Comme nts GLUCOSE (test code = 2217) 98 MG/DL BUN (test code = 2208) 20 MG/DL CREATININE (test code = 2214) 0.92 MG/DL eGFR (2020 CKD-EPI) (test co de = 25681) 67 ML/MIN/1.73 CALC BUN/CREAT (test code = 2235) 22 RATIO SODIUM (test code = 2231) 139 MEQ/L POTASSIUM (test code = 2228) 4.6 MEQ/L CHLORIDE (test code = 2215) 103 MEQ/L CARBON DIOXIDE (test code = 2206) 22 MEQ/L CALCIUM (test code = 2209) 10.7 MG/DL PROTEIN, TOTAL (test code = 2229) 6.9 G/DL ALBUMIN (test code = 2201) 4.1 G/DL CALC GLOBULIN (test code = 2240) 2.8 G/DL CALC A/G RATIO (test code = 2234) 1.5 RATIO BILIRUBIN, TOTAL (test code = 2207) 0.3 MG/DL ALKALINE PHOSPHATASE (test code = 2204) 55 U/L AST (test code = 2218) 20 U/L ALT (test code = 2219) 18 U/L TSH + FREE T4 [id number] 00:00:00* Test Item Value Reference Range Interpretation Comme nts TSH, THIRD GENERATION (test code = 2821) 0.653 UIU/ML FREE T4 (THYROXINE) (test co de = 2823) 1.81 NG/DL TSH + FREE T4 [id number] 00:00:00* Test Item Value Reference Range Interpretation Comme nts TSH, THIRD GENERATION (test code = 2821) 0.653 UIU/ML FREE T4 (THYROXINE) (test co de = 2823) 1.81 NG/DL TSH + FREE T4 [id number] 00:00:00* Test Item Value Reference Range Interpretation Comme nts TSH, THIRD GENERATION (test code = 2821) 0.653 UIU/ML FREE T4 (THYROXINE) (test co de = 2823) 1.81 NG/DL LIPID [id number] 00:00:00* Test Item Value Reference Range Interpretation Comme nts CHOLESTEROL (test code = 2210) 140 MG/DL TRIGLYCERIDES (test code = 2232) 98 MG/DL HDL CHOLESTEROL (test code = 2220) 45 MG/DL CALC LDL CHOL (test code = 2237) 77 MG/DL RISK RATIO LDL/HDL (test cod e = 2238) 1.71 RATIO Magan JohnsonCOMPREHENSIVE METABOLIC [id number] 00:00:00* Test Item Value Reference Range Interpretation Comme nts GLUCOSE (test code = 2217) 83 MG/DL BUN (test code = 2208) 19 MG/DL CREATININE (test code = 2214) 1.08 MG/DL eGFR AMER. (test cod e = 73832) 61 ML/MIN/1.73 eGFR NON- AMER. (test code = 65736) 52 ML/MIN/1.73 CALC BUN/CREAT (test code = 2235) 18 RATIO SODIUM (test code = 2231) 141 MEQ/L POTASSIUM (test code = 2228) 4.5 MEQ/L CHLORIDE (test code = 2215) 107 MEQ/L CARBON DIOXIDE (test code = 2206) 23 MEQ/L CALCIUM (test code = 2209) 10.1 MG/DL PROTEIN, TOTAL (test code = 2229) 6.7 G/DL ALBUMIN (test code = 2201) 4.1 G/DL CALC GLOBULIN (test code = 2240) 2.6 G/DL CALC A/G RATIO (test code = 2234) 1.6 RATIO BILIRUBIN, TOTAL (test code = 2207) 0.2 MG/DL ALKALINE PHOSPHATASE (test code = 2204) 51 U/L AST (test code = 2218) 18 U/L ALT (test code = 2219) 24 U/L Magan JohnsonLIPID [id number] 00:00:00* Test Item Value Reference Range Interpretation Comme nts CHOLESTEROL (test code = 2210) 140 MG/DL TRIGLYCERIDES (test code = 2232) 98 MG/DL HDL CHOLESTEROL (test code = 2220) 45 MG/DL CALC LDL CHOL (test code = 2237) 77 MG/DL RISK RATIO LDL/HDL (test cod e = 2238) 1.71 RATIO Magan JohnsonCOMPREHENSIVE METABOLIC [id number] 00:00:00* Test Item Value Reference Range Interpretation Comme nts GLUCOSE (test code = 2217) 83 MG/DL BUN (test code = 2208) 19 MG/DL CREATININE (test code = 2214) 1.08 MG/DL eGFR AMER. (test cod e = 47470) 61 ML/MIN/1.73 eGFR NON- AMER. (test code = 82015) 52 ML/MIN/1.73 CALC BUN/CREAT (test code = 2235) 18 RATIO SODIUM (test code = 2231) 141 MEQ/L POTASSIUM (test code = 2228) 4.5 MEQ/L CHLORIDE (test code = 2215) 107 MEQ/L CARBON DIOXIDE (test code = 2206) 23 MEQ/L CALCIUM (test code = 2209) 10.1 MG/DL PROTEIN, TOTAL (test code = 2229) 6.7 G/DL ALBUMIN (test code = 2201) 4.1 G/DL CALC GLOBULIN (test code = 2240) 2.6 G/DL CALC A/G RATIO (test code = 2234) 1.6 RATIO BILIRUBIN, TOTAL (test code = 2207) 0.2 MG/DL ALKALINE PHOSPHATASE (test code = 2204) 51 U/L AST (test code = 2218) 18 U/L ALT (test code = 2219) 24 U/L Magan JohnsonCOMPREHENSIVE METABOLIC [id number] 00:00:00* Test Item Value Reference Range Interpretation Comme nts GLUCOSE (test code = 2217) 83 MG/DL BUN (test code = 2208) 19 MG/DL CREATININE (test code = 2214) 1.08 MG/DL eGFR AMER. (test cod e = 63225) 61 ML/MIN/1.73 eGFR NON- AMER. (test code = 71136) 52 ML/MIN/1.73 CALC BUN/CREAT (test code = 2235) 18 RATIO SODIUM (test code = 2231) 141 MEQ/L POTASSIUM (test code = 2228) 4.5 MEQ/L CHLORIDE (test code = 2215) 107 MEQ/L CARBON DIOXIDE (test code = 2206) 23 MEQ/L CALCIUM (test code = 2209) 10.1 MG/DL PROTEIN, TOTAL (test code = 2229) 6.7 G/DL ALBUMIN (test code = 2201) 4.1 G/DL CALC GLOBULIN (test code = 2240) 2.6 G/DL CALC A/G RATIO (test code = 2234) 1.6 RATIO BILIRUBIN, TOTAL (test code = 2207) 0.2 MG/DL ALKALINE PHOSPHATASE (test code = 2204) 51 U/L AST (test code = 2218) 18 U/L ALT (test code = 2219) 24 U/L LIPID [id number] 00:00:00* Test Item Value Reference Range Interpretation Comme nts CHOLESTEROL (test code = 2210) 140 MG/DL TRIGLYCERIDES (test code = 2232) 98 MG/DL HDL CHOLESTEROL (test code = 2220) 45 MG/DL CALC LDL CHOL (test code = 2237) 77 MG/DL RISK RATIO LDL/HDL (test cod e = 2238) 1.71 RATIO COMPREHENSIVE METABOLIC [id number] 00:00:00* Test Item Value Reference Range Interpretation Comme nts GLUCOSE (test code = 2217) 83 MG/DL BUN (test code = 2208) 19 MG/DL CREATININE (test code = 2214) 1.08 MG/DL eGFR AMER. (test cod e = 63551) 61 ML/MIN/1.73 eGFR NON- AMER. (test code = 36157) 52 ML/MIN/1.73 CALC BUN/CREAT (test code = 2235) 18 RATIO SODIUM (test code = 2231) 141 MEQ/L POTASSIUM (test code = 2228) 4.5 MEQ/L CHLORIDE (test code = 2215) 107 MEQ/L CARBON DIOXIDE (test code = 2206) 23 MEQ/L CALCIUM (test code = 2209) 10.1 MG/DL PROTEIN, TOTAL (test code = 2229) 6.7 G/DL ALBUMIN (test code = 2201) 4.1 G/DL CALC GLOBULIN (test code = 2240) 2.6 G/DL CALC A/G RATIO (test code = 2234) 1.6 RATIO BILIRUBIN, TOTAL (test code = 2207) 0.2 MG/DL ALKALINE PHOSPHATASE (test code = 2204) 51 U/L AST (test code = 2218) 18 U/L ALT (test code = 2219) 24 U/L COMPREHENSIVE METABOLIC [id number] 00:00:00* Test Item Value Reference Range Interpretation Comme nts GLUCOSE (test code = 2217) 83 MG/DL BUN (test code = 2208) 19 MG/DL CREATININE (test code = 2214) 1.08 MG/DL eGFR AMER. (test cod e = 80459) 61 ML/MIN/1.73 eGFR NON- AMER. (test code = 27468) 52 ML/MIN/1.73 CALC BUN/CREAT (test code = 2235) 18 RATIO SODIUM (test code = 2231) 141 MEQ/L POTASSIUM (test code = 2228) 4.5 MEQ/L CHLORIDE (test code = 2215) 107 MEQ/L CARBON DIOXIDE (test code = 2206) 23 MEQ/L CALCIUM (test code = 2209) 10.1 MG/DL PROTEIN, TOTAL (test code = 2229) 6.7 G/DL ALBUMIN (test code = 2201) 4.1 G/DL CALC GLOBULIN (test code = 2240) 2.6 G/DL CALC A/G RATIO (test code = 2234) 1.6 RATIO BILIRUBIN, TOTAL (test code = 2207) 0.2 MG/DL ALKALINE PHOSPHATASE (test code = 2204) 51 U/L AST (test code = 2218) 18 U/L ALT (test code = 2219) 24 U/L LIPID [id number] 00:00:00* Test Item Value Reference Range Interpretation Comme nts CHOLESTEROL (test code = 2210) 140 MG/DL TRIGLYCERIDES (test code = 2232) 98 MG/DL HDL CHOLESTEROL (test code = 2220) 45 MG/DL CALC LDL CHOL (test code = 2237) 77 MG/DL RISK RATIO LDL/HDL (test cod e = 2238) 1.71 RATIO LIPID [id number] 00:00:00* Test Item Value Reference Range Interpretation Comme nts CHOLESTEROL (test code = 2210) 140 MG/DL TRIGLYCERIDES (test code = 2232) 98 MG/DL HDL CHOLESTEROL (test code = 2220) 45 MG/DL CALC LDL CHOL (test code = 2237) 77 MG/DL RISK RATIO LDL/HDL (test cod e = 2238) 1.71 RATIO COMPREHENSIVE METABOLIC [id number] 00:00:00* Test Item Value Reference Range Interpretation Comme nts GLUCOSE (test code = 2217) 83 MG/DL BUN (test code = 2208) 19 MG/DL CREATININE (test code = 2214) 1.08 MG/DL eGFR AMER. (test cod e = 09564) 61 ML/MIN/1.73 eGFR NON- AMER. (test code = 49944) 52 ML/MIN/1.73 CALC BUN/CREAT (test code = 2235) 18 RATIO SODIUM (test code = 2231) 141 MEQ/L POTASSIUM (test code = 2228) 4.5 MEQ/L CHLORIDE (test code = 2215) 107 MEQ/L CARBON DIOXIDE (test code = 2206) 23 MEQ/L CALCIUM (test code = 2209) 10.1 MG/DL PROTEIN, TOTAL (test code = 2229) 6.7 G/DL ALBUMIN (test code = 2201) 4.1 G/DL CALC GLOBULIN (test code = 2240) 2.6 G/DL CALC A/G RATIO (test code = 2234) 1.6 RATIO BILIRUBIN, TOTAL (test code = 2207) 0.2 MG/DL ALKALINE PHOSPHATASE (test code = 2204) 51 U/L AST (test code = 2218) 18 U/L ALT (test code = 2219) 24 U/L COMPREHENSIVE METABOLIC [id number] 00:00:00* Test Item Value Reference Range Interpretation Comme nts GLUCOSE (test code = 2217) 83 MG/DL BUN (test code = 2208) 19 MG/DL CREATININE (test code = 2214) 1.08 MG/DL eGFR AMER. (test cod e = 77965) 61 ML/MIN/1.73 eGFR NON- AMER. (test code = 66928) 52 ML/MIN/1.73 CALC BUN/CREAT (test code = 2235) 18 RATIO SODIUM (test code = 2231) 141 MEQ/L POTASSIUM (test code = 2228) 4.5 MEQ/L CHLORIDE (test code = 2215) 107 MEQ/L CARBON DIOXIDE (test code = 2206) 23 MEQ/L CALCIUM (test code = 2209) 10.1 MG/DL PROTEIN, TOTAL (test code = 2229) 6.7 G/DL ALBUMIN (test code = 2201) 4.1 G/DL CALC GLOBULIN (test code = 2240) 2.6 G/DL CALC A/G RATIO (test code = 2234) 1.6 RATIO BILIRUBIN, TOTAL (test code = 2207) 0.2 MG/DL ALKALINE PHOSPHATASE (test code = 2204) 51 U/L AST (test code = 2218) 18 U/L ALT (test code = 2219) 24 U/L LIPID [id number] 00:00:00* Test Item Value Reference Range Interpretation Comme nts CHOLESTEROL (test code = 2210) 140 MG/DL TRIGLYCERIDES (test code = 2232) 98 MG/DL HDL CHOLESTEROL (test code = 2220) 45 MG/DL CALC LDL CHOL (test code = 2237) 77 MG/DL RISK RATIO LDL/HDL (test cod e = 2238) 1.71 RATIO LIPID [id number] 00:00:00* Test Item Value Reference Range Interpretation Comme nts CHOLESTEROL (test code = 2210) 140 MG/DL TRIGLYCERIDES (test code = 2232) 98 MG/DL HDL CHOLESTEROL (test code = 2220) 45 MG/DL CALC LDL CHOL (test code = 2237) 77 MG/DL RISK RATIO LDL/HDL (test cod e = 2238) 1.71 RATIO IONIZED CALCIUM, [id number] 00:00:00* Test Item Value Reference Range Interpretation Comme nts CALCIUM, IONIZED (test code = 53160) 5.59 MG/DL Magan F AustinIONIZED CALCIUM, [id number] 00:00:00* Test Item Value Reference Range Interpretation Comme nts CALCIUM, IONIZED (test code = 32754) 5.59 MG/DL Magan F AustinIONIZED CALCIUM, [id number] 00:00:00* Test Item Value Reference Range Interpretation Comme nts CALCIUM, IONIZED (test code = 68534) 5.59 MG/DL IONIZED CALCIUM, [id number] 00:00:00* Test Item Value Reference Range Interpretation Comme nts CALCIUM, IONIZED (test code = 98341) 5.59 MG/DL IONIZED CALCIUM, [id number] 00:00:00* Test Item Value Reference Range Interpretation Comme nts CALCIUM, IONIZED (test code = 24721) 5.59 MG/DL IONIZED CALCIUM, [id number] 00:00:00* Test Item Value Reference Range Interpretation Comme nts CALCIUM, IONIZED (test code = 87431) 5.59 MG/DL IONIZED CALCIUM, [id number] 00:00:00* Test Item Value Reference Range Interpretation Comme nts CALCIUM, IONIZED (test code = 40351) 5.59 MG/DL TSH + FREE T4 [id number] 00:00:00* Test Item Value Reference Range Interpretation Comme nts TSH, THIRD GENERATION (test code = 2821) 1.280 UIU/ML FREE T4 (THYROXINE) (test co de = 2823) 1.44 NG/DL Magan JohnsonTSH + FREE T4 [id number] 00:00:00* Test Item Value Reference Range Interpretation Comme nts TSH, THIRD GENERATION (test code = 2821) 1.280 UIU/ML FREE T4 (THYROXINE) (test co de = 2823) 1.44 NG/DL Magan JohnsonTSH + FREE T4 [id number] 00:00:00* Test Item Value Reference Range Interpretation Comme nts TSH, THIRD GENERATION (test code = 2821) 1.280 UIU/ML FREE T4 (THYROXINE) (test co de = 2823) 1.44 NG/DL TSH + FREE T4 [id number] 00:00:00* Test Item Value Reference Range Interpretation Comme nts TSH, THIRD GENERATION (test code = 2821) 1.280 UIU/ML FREE T4 (THYROXINE) (test co de = 2823) 1.44 NG/DL TSH + FREE T4 [id number] 00:00:00* Test Item Value Reference Range Interpretation Comme nts TSH, THIRD GENERATION (test code = 2821) 1.280 UIU/ML FREE T4 (THYROXINE) (test co de = 2823) 1.44 NG/DL TSH + FREE T4 [id number] 00:00:00* Test Item Value Reference Range Interpretation Comme nts TSH, THIRD GENERATION (test code = 2821) 1.280 UIU/ML FREE T4 (THYROXINE) (test co de = 2823) 1.44 NG/DL TSH + FREE T4 [id number] 00:00:00* Test Item Value Reference Range Interpretation Comme nts TSH, THIRD GENERATION (test code = 2821) 1.280 UIU/ML FREE T4 (THYROXINE) (test co de = 2823) 1.44 NG/DL TSH + FREE T4 [id number] 00:00:00* Test Item Value Reference Range Interpretation Comme nts TSH, THIRD GENERATION (test code = 2821) 1.280 UIU/ML FREE T4 (THYROXINE) (test co de = 2823) 1.44 NG/DL TSH + FREE T4 [id number] 00:00:00* Test Item Value Reference Range Interpretation Comme nts TSH, THIRD GENERATION (test code = 2821) 1.280 UIU/ML FREE T4 (THYROXINE) (test co de = 2823) 1.44 NG/DL TSH + FREE T4 [id number] 00:00:00* Test Item Value Reference Range Interpretation Comme nts TSH, THIRD GENERATION (test code = 2821) 1.280 UIU/ML FREE T4 (THYROXINE) (test co de = 2823) 1.44 NG/DL RENAL FUNCTION PANEL + [id number] 00:00:00* Test Item Value Reference Range Interpretation Comme nts GLUCOSE (test code = 2217) 86 MG/DL BUN (test code = 2208) 21 MG/DL CREATININE (test code = 2214) 1.06 MG/DL eGFR AMER. (test cod e = 88532) 62 ML/MIN/1.73 eGFR NON- AMER. (test code = 55819) 54 ML/MIN/1.73 CALC BUN/CREAT (test code = 2235) 20 RATIO SODIUM (test code = 2231) 143 MEQ/L POTASSIUM (test code = 2228) 4.5 MEQ/L CHLORIDE (test code = 2215) 106 MEQ/L CARBON DIOXIDE (test code = 2206) 24 MEQ/L CALCIUM (test code = 2209) 10.9 MG/DL PHOSPHORUS (test code = 2227) 3.3 MG/DL ALBUMIN (test code = 2201) 4.5 G/DL Magan F AustinRENAL FUNCTION PANEL + [id number] 00:00:00* Test Item Value Reference Range Interpretation Comme nts GLUCOSE (test code = 2217) 86 MG/DL BUN (test code = 2208) 21 MG/DL CREATININE (test code = 2214) 1.06 MG/DL eGFR AMER. (test cod e = 74376) 62 ML/MIN/1.73 eGFR NON- AMER. (test code = 79012) 54 ML/MIN/1.73 CALC BUN/CREAT (test code = 2235) 20 RATIO SODIUM (test code = 2231) 143 MEQ/L POTASSIUM (test code = 2228) 4.5 MEQ/L CHLORIDE (test code = 2215) 106 MEQ/L CARBON DIOXIDE (test code = 2206) 24 MEQ/L CALCIUM (test code = 2209) 10.9 MG/DL PHOSPHORUS (test code = 2227) 3.3 MG/DL ALBUMIN (test code = 2201) 4.5 G/DL Magan F AustinRENAL FUNCTION PANEL + [id number] 00:00:00* Test Item Value Reference Range Interpretation Comme nts GLUCOSE (test code = 2217) 86 MG/DL BUN (test code = 2208) 21 MG/DL CREATININE (test code = 2214) 1.06 MG/DL eGFR AMER. (test cod e = 59202) 62 ML/MIN/1.73 eGFR NON- AMER. (test code = 17543) 54 ML/MIN/1.73 CALC BUN/CREAT (test code = 2235) 20 RATIO SODIUM (test code = 2231) 143 MEQ/L POTASSIUM (test code = 2228) 4.5 MEQ/L CHLORIDE (test code = 2215) 106 MEQ/L CARBON DIOXIDE (test code = 2206) 24 MEQ/L CALCIUM (test code = 2209) 10.9 MG/DL PHOSPHORUS (test code = 2227) 3.3 MG/DL ALBUMIN (test code = 2201) 4.5 G/DL RENAL FUNCTION PANEL + [id number] 00:00:00* Test Item Value Reference Range Interpretation Comme nts GLUCOSE (test code = 2217) 86 MG/DL BUN (test code = 2208) 21 MG/DL CREATININE (test code = 2214) 1.06 MG/DL eGFR AMER. (test cod e = 69622) 62 ML/MIN/1.73 eGFR NON- AMER. (test code = 09413) 54 ML/MIN/1.73 CALC BUN/CREAT (test code = 2235) 20 RATIO SODIUM (test code = 2231) 143 MEQ/L POTASSIUM (test code = 2228) 4.5 MEQ/L CHLORIDE (test code = 2215) 106 MEQ/L CARBON DIOXIDE (test code = 2206) 24 MEQ/L CALCIUM (test code = 2209) 10.9 MG/DL PHOSPHORUS (test code = 2227) 3.3 MG/DL ALBUMIN (test code = 2201) 4.5 G/DL RENAL FUNCTION PANEL + [id number] 00:00:00* Test Item Value Reference Range Interpretation Comme nts GLUCOSE (test code = 2217) 86 MG/DL BUN (test code = 2208) 21 MG/DL CREATININE (test code = 2214) 1.06 MG/DL eGFR AMER. (test cod e = 06750) 62 ML/MIN/1.73 eGFR NON- AMER. (test code = 46868) 54 ML/MIN/1.73 CALC BUN/CREAT (test code = 2235) 20 RATIO SODIUM (test code = 2231) 143 MEQ/L POTASSIUM (test code = 2228) 4.5 MEQ/L CHLORIDE (test code = 2215) 106 MEQ/L CARBON DIOXIDE (test code = 2206) 24 MEQ/L CALCIUM (test code = 2209) 10.9 MG/DL PHOSPHORUS (test code = 2227) 3.3 MG/DL ALBUMIN (test code = 2201) 4.5 G/DL US RETROPERITONEAL [id number] 15:47:03HISTORY: Elevated serum creatinine. TECHNIQUE: Both kidneys are evaluated in multiple planes with the patientin different positions. FINDINGS: RIGHT KIDNEY: Measures 10.1 x 3.7 x 4.9 cm with corticalthickness measuring up to 11 mm. No hydronephrosis or perinephric fluidcollection detected. LEFT KIDNEY: Measures 9.8 x 4.1 x 4.3 cm in size with cortical thicknessmeasuring up to 12.5 mm. Mild fullness noted in the left renal pelvis,particularly near the lower pole collecting system without significantcaliectasis. No perinephric fluid collection. Quick look at the urinary bladder showed very small amount of urine in thebladder lumen, therefore, urinary bladder could not be adequatelyevaluated. CONCLUSIONS: Mild fullness noted in the left renal pelvis withoutsignificant hydronephrosis. Otherwise normal study.Ksmb, Radiant Results Inft User - 06/29/2020 9:48 AM CSTHISTORY: Elevated serum creatinine.TECHNIQUE: Both kidneys are evaluated in multiple planes with the patientin different positions. FINDINGS: RIGHT KIDNEY: Measures 10.1 x 3.7 x 4.9 cm with corticalthickness measuring up to 11 mm. No hydronephrosis or perinephric fluidcollection detected.LEFT KIDNEY: Measures 9.8 x 4.1 x 4.3 cm in size with cortical thicknessmeasuring up to 12.5 mm. Mild fullness noted in the left renal pelvis,particularly near the lower pole collecting system without significantcaliectasis. No perinephricfluid collection.Quick look at the urinary bladder showed very small amount of urine in thebladder lumen, therefore, urinary bladder could not be adequatelyevaluated.CONCLUSIONS: Mild fullness noted in the left renal pelvis withoutsignificant hydronephrosis. Otherwise normal study.[facility] AllianceCOMPREHENSIVE METABOLIC [id number] 00:00:00* Test Item Value Reference Range Interpretation Comme nts GLUCOSE (test code = 2217) 95 MG/DL BUN (test code = 2208) 26 MG/DL CREATININE (test code = 2214) 1.11 MG/DL eGFR AMER. (test cod e = 76947) 59 ML/MIN/1.73 eGFR NON- AMER. (test code = 78625) 51 ML/MIN/1.73 CALC BUN/CREAT (test code = 2235) 23 RATIO SODIUM (test code = 2231) 141 MEQ/L POTASSIUM (test code = 2228) 4.5 MEQ/L CHLORIDE (test code = 2215) 104 MEQ/L CARBON DIOXIDE (test code = 2206) 25 MEQ/L CALCIUM (test code = 2209) 10.9 MG/DL PROTEIN, TOTAL (test code = 2229) 7.2 G/DL ALBUMIN (test code = 2201) 4.2 G/DL CALC GLOBULIN (test code = 2240) 3.0 G/DL CALC A/G RATIO (test code = 2234) 1.4 RATIO BILIRUBIN, TOTAL (test code = 2207) 0.2 MG/DL ALKALINE PHOSPHATASE (test code = 2204) 69 U/L AST (test code = 2218) 12 U/L ALT (test code = 2219) 18 U/L Magan [id number] 00:00:00* Test Item Value Reference Range Interpretation Comme nts TSH, THIRD GENERATION (test code = 2821) 1.150 UIU/ML Magan Goss AustinLIPID [id number] 00:00:00* Test Item Value Reference Range Interpretation Comme nts CHOLESTEROL (test code = 2210) 173 MG/DL TRIGLYCERIDES (test code = 2232) 147 MG/DL HDL CHOLESTEROL (test code = 2220) 49 MG/DL CALC LDL CHOL (test code = 2237) 100 MG/DL RISK RATIO LDL/HDL (test cod e = 223) 2.04 RATIO Magan JohnsonCOMPREHENSIVE METABOLIC [id number] 00:00:00* Test Item Value Reference Range Interpretation Comme nts GLUCOSE (test code = 2217) 95 MG/DL BUN (test code = 8) 26 MG/DL CREATININE (test code = 2214) 1.11 MG/DL eGFR AMER. (test cod e = 60956) 59 ML/MIN/1.73 eGFR NON- AMER. (test code = 69613) 51 ML/MIN/1.73 CALC BUN/CREAT (test code = 2235) 23 RATIO SODIUM (test code = 2231) 141 MEQ/L POTASSIUM (test code = 2228) 4.5 MEQ/L CHLORIDE (test code = 2215) 104 MEQ/L CARBON DIOXIDE (test code = 2206) 25 MEQ/L CALCIUM (test code = 2209) 10.9 MG/DL PROTEIN, TOTAL (test code = 2229) 7.2 G/DL ALBUMIN (test code = 2201) 4.2 G/DL CALC GLOBULIN (test code = 2240) 3.0 G/DL CALC A/G RATIO (test code = 2234) 1.4 RATIO BILIRUBIN, TOTAL (test code = 2207) 0.2 MG/DL ALKALINE PHOSPHATASE (test code = 2204) 69 U/L AST (test code = 2218) 12 U/L ALT (test code = 2219) 18 U/L Magan [id number] 00:00:00* Test Item Value Reference Range Interpretation Comme nts TSH, THIRD GENERATION (test code = 2821) 1.150 UIU/ML Magan Goss AustinLIPID [id number] 00:00:00* Test Item Value Reference Range Interpretation Comme nts CHOLESTEROL (test code = 2210) 173 MG/DL TRIGLYCERIDES (test code = 2232) 147 MG/DL HDL CHOLESTEROL (test code = 2220) 49 MG/DL CALC LDL CHOL (test code = 2237) 100 MG/DL RISK RATIO LDL/HDL (test cod e = 2238) 2.04 RATIO Magan JohnsonLIPID [id number] 00:00:00* Test Item Value Reference Range Interpretation Comme nts CHOLESTEROL (test code = 2210) 173 MG/DL TRIGLYCERIDES (test code = 2232) 147 MG/DL HDL CHOLESTEROL (test code = 2220) 49 MG/DL CALC LDL CHOL (test code = 2237) 100 MG/DL RISK RATIO LDL/HDL (test cod e = 2238) 2.04 RATIO COMPREHENSIVE METABOLIC [id number] 00:00:00* Test Item Value Reference Range Interpretation Comme nts GLUCOSE (test code = 2217) 95 MG/DL BUN (test code = 2208) 26 MG/DL CREATININE (test code = 2214) 1.11 MG/DL eGFR AMER. (test cod e = 40040) 59 ML/MIN/1.73 eGFR NON- AMER. (test code = 84561) 51 ML/MIN/1.73 CALC BUN/CREAT (test code = 2235) 23 RATIO SODIUM (test code = 2231) 141 MEQ/L POTASSIUM (test code = 2228) 4.5 MEQ/L CHLORIDE (test code = 2215) 104 MEQ/L CARBON DIOXIDE (test code = 2206) 25 MEQ/L CALCIUM (test code = 2209) 10.9 MG/DL PROTEIN, TOTAL (test code = 2229) 7.2 G/DL ALBUMIN (test code = 2201) 4.2 G/DL CALC GLOBULIN (test code = 2240) 3.0 G/DL CALC A/G RATIO (test code = 2234) 1.4 RATIO BILIRUBIN, TOTAL (test code = 2207) 0.2 MG/DL ALKALINE PHOSPHATASE (test code = 2204) 69 U/L AST (test code = 2218) 12 U/L ALT (test code = 2219) 18 U/L [id number] 00:00:00* Test Item Value Reference Range Interpretation Comme nts TSH, THIRD GENERATION (test code = 2821) 1.150 UIU/ML [id number] 00:00:00* Test Item Value Reference Range Interpretation Comme nts TSH, THIRD GENERATION (test code = 2821) 1.150 UIU/ML LIPID [id number] 00:00:00* Test Item Value Reference Range Interpretation Comme nts CHOLESTEROL (test code = 2210) 173 MG/DL TRIGLYCERIDES (test code = 2232) 147 MG/DL HDL CHOLESTEROL (test code = 2220) 49 MG/DL CALC LDL CHOL (test code = 2237) 100 MG/DL RISK RATIO LDL/HDL (test cod e = 2238) 2.04 RATIO LIPID [id number] 00:00:00* Test Item Value Reference Range Interpretation Comme nts CHOLESTEROL (test code = 2210) 173 MG/DL TRIGLYCERIDES (test code = 2232) 147 MG/DL HDL CHOLESTEROL (test code = 2220) 49 MG/DL CALC LDL CHOL (test code = 2237) 100 MG/DL RISK RATIO LDL/HDL (test cod e = 2238) 2.04 RATIO COMPREHENSIVE METABOLIC [id number] 00:00:00* Test Item Value Reference Range Interpretation Comme nts GLUCOSE (test code = 2217) 95 MG/DL BUN (test code = 2208) 26 MG/DL CREATININE (test code = 2214) 1.11 MG/DL eGFR AMER. (test cod e = 32382) 59 ML/MIN/1.73 eGFR NON- AMER. (test code = 36453) 51 ML/MIN/1.73 CALC BUN/CREAT (test code = 2235) 23 RATIO SODIUM (test code = 2231) 141 MEQ/L POTASSIUM (test code = 2228) 4.5 MEQ/L CHLORIDE (test code = 2215) 104 MEQ/L CARBON DIOXIDE (test code = 2206) 25 MEQ/L CALCIUM (test code = 2209) 10.9 MG/DL PROTEIN, TOTAL (test code = 2229) 7.2 G/DL ALBUMIN (test code = 2201) 4.2 G/DL CALC GLOBULIN (test code = 2240) 3.0 G/DL CALC A/G RATIO (test code = 2234) 1.4 RATIO BILIRUBIN, TOTAL (test code = 2207) 0.2 MG/DL ALKALINE PHOSPHATASE (test code = 2204) 69 U/L AST (test code = 2218) 12 U/L ALT (test code = 2219) 18 U/L COMPREHENSIVE METABOLIC [id number] 00:00:00* Test Item Value Reference Range Interpretation Comme nts GLUCOSE (test code = 2217) 95 MG/DL BUN (test code = 2208) 26 MG/DL CREATININE (test code = 2214) 1.11 MG/DL eGFR AMER. (test cod e = 31623) 59 ML/MIN/1.73 eGFR NON- AMER. (test code = 87272) 51 ML/MIN/1.73 CALC BUN/CREAT (test code = 2235) 23 RATIO SODIUM (test code = 2231) 141 MEQ/L POTASSIUM (test code = 2228) 4.5 MEQ/L CHLORIDE (test code = 2215) 104 MEQ/L CARBON DIOXIDE (test code = 2206) 25 MEQ/L CALCIUM (test code = 2209) 10.9 MG/DL PROTEIN, TOTAL (test code = 2229) 7.2 G/DL ALBUMIN (test code = 2201) 4.2 G/DL CALC GLOBULIN (test code = 2240) 3.0 G/DL CALC A/G RATIO (test code = 2234) 1.4 RATIO BILIRUBIN, TOTAL (test code = 2207) 0.2 MG/DL ALKALINE PHOSPHATASE (test code = 2204) 69 U/L AST (test code = 2218) 12 U/L ALT (test code = 2219) 18 U/L [id number] 00:00:00* Test Item Value Reference Range Interpretation Comme nts TSH, THIRD GENERATION (test code = 2821) 1.150 UIU/ML [id number] 00:00:00* Test Item Value Reference Range Interpretation Comme nts TSH, THIRD GENERATION (test code = 2821) 1.150 UIU/ML [id number] 00:00:00* Test Item Value Reference Range Interpretation Comme nts TSH, THIRD GENERATION (test code = 2821) 1.150 UIU/ML LIPID [id number] 00:00:00* Test Item Value Reference Range Interpretation Comme nts CHOLESTEROL (test code = 2210) 173 MG/DL TRIGLYCERIDES (test code = 2232) 147 MG/DL HDL CHOLESTEROL (test code = 2220) 49 MG/DL CALC LDL CHOL (test code = 2237) 100 MG/DL RISK RATIO LDL/HDL (test cod e = 2238) 2.04 RATIO LIPID [id number] 00:00:00* Test Item Value Reference Range Interpretation Comme nts CHOLESTEROL (test code = 2210) 173 MG/DL TRIGLYCERIDES (test code = 2232) 147 MG/DL HDL CHOLESTEROL (test code = 2220) 49 MG/DL CALC LDL CHOL (test code = 2237) 100 MG/DL RISK RATIO LDL/HDL (test cod e = 2238) 2.04 RATIO COMPREHENSIVE METABOLIC [id number] 00:00:00* Test Item Value Reference Range Interpretation Comme nts GLUCOSE (test code = 2217) 95 MG/DL BUN (test code = 2208) 26 MG/DL CREATININE (test code = 2214) 1.11 MG/DL eGFR AMER. (test cod e = 28710) 59 ML/MIN/1.73 eGFR NON- AMER. (test code = 12833) 51 ML/MIN/1.73 CALC BUN/CREAT (test code = 2235) 23 RATIO SODIUM (test code = 2231) 141 MEQ/L POTASSIUM (test code = 2228) 4.5 MEQ/L CHLORIDE (test code = 2215) 104 MEQ/L CARBON DIOXIDE (test code = 2206) 25 MEQ/L CALCIUM (test code = 2209) 10.9 MG/DL PROTEIN, TOTAL (test code = 2229) 7.2 G/DL ALBUMIN (test code = 2201) 4.2 G/DL CALC GLOBULIN (test code = 2240) 3.0 G/DL CALC A/G RATIO (test code = 2234) 1.4 RATIO BILIRUBIN, TOTAL (test code = 2207) 0.2 MG/DL ALKALINE PHOSPHATASE (test code = 2204) 69 U/L AST (test code = 2218) 12 U/L ALT (test code = 2219) 18 U/L COMPREHENSIVE METABOLIC [id number] 00:00:00* Test Item Value Reference Range Interpretation Comme nts GLUCOSE (test code = 2217) 95 MG/DL BUN (test code = 2208) 26 MG/DL CREATININE (test code = 2214) 1.11 MG/DL eGFR AMER. (test cod e = 08971) 59 ML/MIN/1.73 eGFR NON- AMER. (test code = 74161) 51 ML/MIN/1.73 CALC BUN/CREAT (test code = 2235) 23 RATIO SODIUM (test code = 2231) 141 MEQ/L POTASSIUM (test code = 2228) 4.5 MEQ/L CHLORIDE (test code = 2215) 104 MEQ/L CARBON DIOXIDE (test code = 2206) 25 MEQ/L CALCIUM (test code = 2209) 10.9 MG/DL PROTEIN, TOTAL (test code = 2229) 7.2 G/DL ALBUMIN (test code = 2201) 4.2 G/DL CALC GLOBULIN (test code = 2240) 3.0 G/DL CALC A/G RATIO (test code = 2234) 1.4 RATIO BILIRUBIN, TOTAL (test code = 2207) 0.2 MG/DL ALKALINE PHOSPHATASE (test code = 2204) 69 U/L AST (test code = 2218) 12 U/L ALT (test code = 2219) 18 U/L [id number] 00:00:00* Test Item Value Reference Range Interpretation Comme nts TSH, THIRD GENERATION (test code = 2821) 1.150 UIU/ML [id number] 00:00:00* Test Item Value Reference Range Interpretation Comme nts TSH, THIRD GENERATION (test code = 2821) 1.150 UIU/ML [id number] 00:00:00* Test Item Value Reference Range Interpretation Comme nts TSH, THIRD GENERATION (test code = 2821) 1.150 UIU/ML DEXA AXIAL (HIP AND SPINE)2019-08-03 19:02:58Normal bone density measurements. EXAM: DEXA ? ? DEXA AXIAL (HIP AND SPINE) HISTORY: Female 68 years Age-related osteoporosis without currentpathological fracture COMPARISON: ?None TECHNIQUE: Bone densitometry of the lumbar spine and hip was performed on a [employer] system. ? ------ ? WHO- definitions ?T score ?normal ? T >/= - 1 SD around the mean ?osteopenia ?-1 > T > -2.5 SD below the mean ? ? osteoporosis ? ? ? T >/= -2.5 SD below the mean ? Fracture risk doubles for each 1.5 SD below the mean. ? FINDINGS: 1. Lumbar spine L1-L4: T value 0.6. ?Bone mineral density of 1.267g/cm^2. 2 Right Hip: T value 1.0. ?Bone mineral density of 1.131 g/cm^2. Right Neck: T value -0.2. ?Bone mineral density of 1.006 g/cm^2. [facility], Radiant Results Inft U ser - 08/03/2019 2:04 PM CDTEXAM: DEXA DEXA AXIAL (HIP AND SPINE)HISTORY: Female 68 years Age-related osteoporosis without currentpathological fracture COMPARISON: NoneTECHNIQUE: Bone densitometry ofthe lumbar spine and hip was performed on a [employer] system. WHO- definitions T score normal T >/= - 1 SD around the mean osteopenia -1 > T > - 2.5 SD below the mean osteoporosis T >/= -2.5 SD below the mean Fracture risk doubles for each 1.5 SD below the mean. FINDINGS:1. Lumbar spine L1-L4: T value 0.6. Bone mineral density of 1.267g/cm^2. 2 Right Hip: T value 1.0. Bone mineral density of 1.131 g/cm^2. Right Neck: T value -0.2. Bone mineral density of 1.006 g/cm^2. IMPRESSIONNormal bone density measurements.[facility] IQ(R) VITAMIN D, 25-HYDROXY, LC/MS/[id number] 00:00:00* Test Item Value Reference Range Interpretation [facility] VITAMIN D, 25-OH, TOTAL (kari t code = 27765-5) 34 ng/mL VITAMIN D, 25-OH, D3 (test c ode = 1989-05) 34 ng/mL VITAMIN D, 25-OH, D2 (test c ode = 2236-8) <4 ng/mL Magan Bufys IQ(R) VITAMIN D, 25-HYDROXY, LC/MS/[id number] 00:00:00 * Test Item Value Reference Range Interpretation Comme [facility] VITAMIN D, 25-OH, TOTAL (kari t code = 75534-0) 34 ng/mL VITAMIN D, 25-OH, D3 (test c ode = 1989-05) 34 ng/mL VITAMIN D, 25-OH, D2 (test c ode = 2236-8) <4 ng/mL Magan Bufys IQ(R) VITAMIN D, 25-HYDROXY, LC/MS/[id number] 00:00:00 * Test Item Value Reference Range Interpretation Comme nts VITAMIN D, 25-OH, TOTAL (kari t code = 64385-9) 34 ng/mL VITAMIN D, 25-OH, D3 (test c ode = 1989-) 34 ng/mL VITAMIN D, 25-OH, D2 (test c ode = 6-8) <4 ng/mL [facility] IQ(R) VITAMIN D, 25-HYDROXY, LC/MS/[id number] 00:00:00* Test Item Value Reference Range Interpretation Comme nts VITAMIN D, 25-OH, TOTAL (kari t code = 03200-0) 34 ng/mL VITAMIN D, 25-OH, D3 (test c ode = 1989-) 34 ng/mL VITAMIN D, 25-OH, D2 (test c ode = 6-8) <4 ng/mL CARDIO IQ(R) VITAMIN D, 25-HYDROXY, LC/MS/[id number] 00:00:00* Test Item Value Reference Range Interpretation Comme nts VITAMIN D, 25-OH, TOTAL (kari t code = 68898-9) 34 ng/mL VITAMIN D, 25-OH, D3 (test c ode = 1989-) 34 ng/mL VITAMIN D, 25-OH, D2 (test c ode = 6-8) <4 ng/mL [id number] 00:00:00* Test Item Value Reference Range Interpretation Comme nts CALCIUM (test code = 12256-4) 10.2 mg/dL Magan Goss [id number] 00:00:00* Test Item Value Reference Range Interpretation Comme nts CALCIUM (test code = 44754-1) 10.2 mg/dL Magan Goss [id number] 00:00:00* Test Item Value Reference Range Interpretation Comme nts CALCIUM (test code = 55196-7) 10.2 mg/dL [id number] 00:00:00* Test Item Value Reference Range Interpretation Comme nts CALCIUM (test code = 28725-7) 10.2 mg/dL [id number] 00:00:00* Test Item Value Reference Range Interpretation Comme nts CALCIUM (test code = 37769-7) 10.2 mg/dL LIPID PANEL (REFL)2019-06-30 00:00:00* Test Item Value Reference Range Interpretation Comme nts CHOLESTEROL, TOTAL (test cod e = 3-3) 178 mg/dL HDL CHOLESTEROL (test code = 2085-9) 61 mg/dL TRIGLYCERIDES (test code = 2571-8) 167 mg/dL LDL-CHOLESTEROL (test code = 32170-8) 90 mg/dL(calc) CHOL/HDLC RATIO (test code = 9830-1) 2.9 (calc) NON HDL CHOLESTEROL (test code = 58437-9) 117 mg/dL(calc) Magan [id number] 00:00:00* Test Item Value Reference Range Interpretation Comme nts TSH (test code = 3016-3) 2.29 mIU/L Magan JohnsonT4, [id number] 00:00:00* Test Item Value Reference Range Interpretation Comme nts T4, FREE (test code = 3024-7) 1.5 ng/dL Magan JohnsonRENAL FUNCTION [id number] 00:00:00* Test Item Value Reference Range Interpretation Comme nts GLUCOSE (test code = 2345-7) 91 mg/dL UREA NITROGEN (BUN) (test code = 3094-0) 22 mg/dL CREATININE (test code = 2160-0) 1.28 mg/dL eGFR NON-AFR. INDIAN (test code = 66268-1) 43 mL/min/1.73m2 eGFR (test code = 93014-4) 50 mL/min/1.73m2 BUN/CREATININE RATIO (test code = 3097-3) 17 (calc) SODIUM (test code = 2951-2) 140 mmol/L POTASSIUM (test code = 2823-3) 4.7 mmol/L CHLORIDE (test code = 2075-0) 102 mmol/L CARBON DIOXIDE (test code = 2027-9) 24 mmol/L CALCIUM (test code = 69222-8) 10.9 mg/dL PHOSPHATE ( PHOSPHORUS) (test code = 2777-1) 3.5 mg/dL ALBUMIN (test code = 1751-7) 4.4 g/dL Magan JohnsonLIPID PANEL (REFL)2019-06-30 00:00:00* Test Item Value Reference Range Interpretation Comme nts CHOLESTEROL, TOTAL (test cod e = 3-3) 178 mg/dL HDL CHOLESTEROL (test code = 5-9) 61 mg/dL TRIGLYCERIDES (test code = 2571-8) 167 mg/dL LDL-CHOLESTEROL (test code = 13440-9) 90 mg/dL(calc) CHOL/HDLC RATIO (test code = 9830-1) 2.9 (calc) NON HDL CHOLESTEROL (test code = 95281-9) 117 mg/dL(calc) Magan [id number] 00:00:00* Test Item Value Reference Range Interpretation Comme nts TSH (test code = 3016-3) 2.29 mIU/L Magan JohnsonT4, [id number] 00:00:00* Test Item Value Reference Range Interpretation Comme nts T4, FREE (test code = 3024-7) 1.5 ng/dL Magan JohnsonRENAL FUNCTION [id number] 00:00:00* Test Item Value Reference Range Interpretation Comme nts GLUCOSE (test code = 2345-7) 91 mg/dL UREA NITROGEN (BUN) (test code = 3094-0) 22 mg/dL CREATININE (test code = 2160-0) 1.28 mg/dL eGFR NON-AFR. INDIAN (test code = 83702-5) 43 mL/min/1.73m2 eGFR (test code = 00082-1) 50 mL/min/1.73m2 BUN/CREATININE RATIO (test code = 3097-3) 17 (calc) SODIUM (test code = 2951-2) 140 mmol/L POTASSIUM (test code = 2823-3) 4.7 mmol/L CHLORIDE (test code = 2075-0) 102 mmol/L CARBON DIOXIDE (test code = 2027-9) 24 mmol/L CALCIUM (test code = 62806-3) 10.9 mg/dL PHOSPHATE ( PHOSPHORUS) (test code = 2777-1) 3.5 mg/dL ALBUMIN (test code = 1751-7) 4.4 g/dL Magan JohnsonLIPID PANEL (REFL)2019-06-30 00:00:00* Test Item Value Reference Range Interpretation Comme nts CHOLESTEROL, TOTAL (test cod e = 3-3) 178 mg/dL HDL CHOLESTEROL (test code = 5-9) 61 mg/dL TRIGLYCERIDES (test code = 2571-8) 167 mg/dL LDL-CHOLESTEROL (test code = 00924-1) 90 mg/dL(calc) CHOL/HDLC RATIO (test code = 9830-1) 2.9 (calc) NON HDL CHOLESTEROL (test code = 50648-7) 117 mg/dL(calc) [id number] 00:00:00* Test Item Value Reference Range Interpretation Comme nts TSH (test code = 3016-3) 2.29 mIU/L T4, [id number] 00:00:00* Test Item Value Reference Range Interpretation Comme nts T4, FREE (test code = 3024-7) 1.5 ng/dL RENAL FUNCTION [id number] 00:00:00* Test Item Value Reference Range Interpretation Comme nts GLUCOSE (test code = 2345-7) 91 mg/dL UREA NITROGEN (BUN) (test code = 3094-0) 22 mg/dL CREATININE (test code = 2160-0) 1.28 mg/dL eGFR NON-AFR. INDIAN (test code = 23712-7) 43 mL/min/1.73m2 eGFR (test code = 02477-6) 50 mL/min/1.73m2 BUN/CREATININE RATIO (test code = 3097-3) 17 (calc) SODIUM (test code = 2951-2) 140 mmol/L POTASSIUM (test code = 2823-3) 4.7 mmol/L CHLORIDE (test code = 2075-0) 102 mmol/L CARBON DIOXIDE (test code = 2027-9) 24 mmol/L CALCIUM (test code = 74098-4) 10.9 mg/dL PHOSPHATE ( PHOSPHORUS) (test code = 2777-1) 3.5 mg/dL ALBUMIN (test code = 1751-7) 4.4 g/dL LIPID PANEL (REFL)2019-06-30 00:00:00* Test Item Value Reference Range Interpretation Comme nts CHOLESTEROL, TOTAL (test cod e = 2093-3) 178 mg/dL HDL CHOLESTEROL (test code = 2085-9) 61 mg/dL TRIGLYCERIDES (test code = 2571-8) 167 mg/dL LDL-CHOLESTEROL (test code = 05806-0) 90 mg/dL(calc) CHOL/HDLC RATIO (test code = 9830-1) 2.9 (calc) NON HDL CHOLESTEROL (test code = 16048-9) 117 mg/dL(calc) [id number] 00:00:00* Test Item Value Reference Range Interpretation Comme nts TSH (test code = 3016-3) 2.29 mIU/L T4, [id number] 00:00:00* Test Item Value Reference Range Interpretation Comme nts T4, FREE (test code = 3024-7) 1.5 ng/dL RENAL FUNCTION [id number] 00:00:00* Test Item Value Reference Range Interpretation Comme nts GLUCOSE (test code = 2345-7) 91 mg/dL UREA NITROGEN (BUN) (test code = 3094-0) 22 mg/dL CREATININE (test code = 2160-0) 1.28 mg/dL eGFR NON-AFR. INDIAN (test code = 66060-9) 43 mL/min/1.73m2 eGFR (test code = 94706-4) 50 mL/min/1.73m2 BUN/CREATININE RATIO (test code = 3097-3) 17 (calc) SODIUM (test code = 2951-2) 140 mmol/L POTASSIUM (test code = 2823-3) 4.7 mmol/L CHLORIDE (test code = 2075-0) 102 mmol/L CARBON DIOXIDE (test code = 8-9) 24 mmol/L CALCIUM (test code = 82978-1) 10.9 mg/dL PHOSPHATE ( PHOSPHORUS) (test code = 2777-1) 3.5 mg/dL ALBUMIN (test code = 1751-7) 4.4 g/dL LIPID PANEL (REFL)2019-06-30 00:00:00* Test Item Value Reference Range Interpretation Comme nts CHOLESTEROL, TOTAL (test cod e = 2093-3) 178 mg/dL HDL CHOLESTEROL (test code = 2085-9) 61 mg/dL TRIGLYCERIDES (test code = 2571-8) 167 mg/dL LDL-CHOLESTEROL (test code = 37508-5) 90 mg/dL(calc) CHOL/HDLC RATIO (test code = 9830-1) 2.9 (calc) NON HDL CHOLESTEROL (test code = 78501-8) 117 mg/dL(calc) [id number] 00:00:00* Test Item Value Reference Range Interpretation Comme nts TSH (test code = 3016-3) 2.29 mIU/L T4, [id number] 00:00:00* Test Item Value Reference Range Interpretation Comme nts T4, FREE (test code = 3024-7) 1.5 ng/dL RENAL FUNCTION [id number] 00:00:00* Test Item Value Reference Range Interpretation Comme nts GLUCOSE (test code = 2345-7) 91 mg/dL UREA NITROGEN (BUN) (test code = 3094-0) 22 mg/dL CREATININE (test code = 2160-0) 1.28 mg/dL eGFR NON-AFR. INDIAN (test code = 30978-3) 43 mL/min/1.73m2 eGFR (test code = 43937-3) 50 mL/min/1.73m2 BUN/CREATININE RATIO (test code = 3097-3) 17 (calc) SODIUM (test code = 2951-2) 140 mmol/L POTASSIUM (test code = 2823-3) 4.7 mmol/L CHLORIDE (test code = 2075-0) 102 mmol/L CARBON DIOXIDE (test code = 8-9) 24 mmol/L CALCIUM (test code = 44157-5) 10.9 mg/dL PHOSPHATE ( PHOSPHORUS) (test code = 2777-1) 3.5 mg/dL ALBUMIN (test code = 1751-7) 4.4 g/dL XR KNEE <3 VW [id number] 20:52:471. Changes of osteoarthritis, more pronounced on the right * * * * * * * * ORIGINAL REPORT * * * * * * * *EXAM: Bilateral knees 2 views each HISTORY:?Left knee pain, unspecified chronicity/?Right knee pain,unspecified chronicity TECHNIQUE: AP and lateral views of the right and left knee are obtained. FINDINGS: Left knee: Minimal narrowing of the medial joint space is seen. Smallosteophyte formation is noted in the medial and lateral compartments. Alsoseen are small osteophytes at the superior patellar facet. No bone lesionis noted. Right knee: More than 50% narrowing of the medial joint is seen. Osteophyteformation is noted both in the medial and lateral compartment as well as atthe patellar facets. No bone lesion is noted. [facility], Radiant Results Inft User - 01/12/2019 3:54 PM CDT* * * * * * ORIGINAL REPORT * * * * * * * *EXAM: Bilateral knees 2 views eachHISTORY: Left knee pain, unspecified chronicity/ Right knee pain,unspecified chronicityTECHNIQUE: AP and lateral views of the right and left knee are obtained.FINDINGS:Left knee: Minimal narrowing of the medial joint space is see n. Smallosteophyte formation is noted in the medial and lateral compartments. Alsoseen are small osteophytes at the superior patellar facet. No bone lesionis noted.Right knee: More than 50% narrowingof the medial joint is seen. Osteophyteformation is noted both in the medial and lateral compartment as well as atthe patellar facets. No bone lesion is noted.IMPRESSION1. Changes of osteoarthritis, more pronounced on the rightUnFreestone Medical CenterXR PELVIS <3 [id number] 20:47:55Changes of very mild degenerative joint disease in the hipjoints * * * * * * * * ORIGINAL REPORT * * * * * * * *EXAM: Pelvis AP view EXAM: Bilateral hips 2 views each HISTORY:?Right hip pain/ Left hip pain TECHNIQUE:An AP view of the pelvis and AP and frog-leg views of the rightand left hip are obtained. FINDINGS: No acute abnormality of the pelvic bones is noted. No bone lesion isidentified. No acute abnormality of the hip joints is seen.. Shape of thehead of the femora is preserved bilaterally. No bone lesion is noted. Thereis minimal sclerosis of the acetabular roof. [facility], Radiant Results Inft User - 01/12/2019 3:50 PM CDT* * * * * * * * ORIGINAL REPORT * * * * * * * *EXAM: Pelvis AP viewEXAM: Bilateral hips 2 views eachHISTORY: Right hip pain/ Left hip painTECHNIQUE:An AP view of the pelvis and AP and frog-leg views of the rightand left hip are obtained.FINDINGS:No acute abnormalityof the pelvic bones is noted. No bone lesion isidentified. No acute abnormality of the hip joints is seen.. Shape of thehead of the femora is preserved bilaterally. No bone lesion is noted. Thereis minimal sclerosis of the acetabular roof.IMPRESSIONChanges of very mild degenerative joint disease inthe hipjoints [facility] HIPS 2 VW [id number] 20:47:55 Changes of very mild degenerative joint disease in the hipjoints * * * * * * * * ORIGINAL REPORT * * * * * * * *EXAM: Pelvis AP view EXAM: Bilateral hips 2 views each HISTORY:?Right hip pain/ Left hip pain TECHNIQUE:An AP view of the pelvis and AP and frog-leg views of the rightand left hip are obtained. FINDINGS: No acute abnormality of the pelvic bones is noted. No bone lesion isidentified. No acute abnormality of the hip joints is seen.. Shape of thehead of the femora is preserved bilaterally. No bone lesion is noted. Thereis minimal sclerosis of the acetabular roof. [facility], Radiant Results Inft User - 01/12/2019 3:50 PM CDT* * * * * * * * ORIGINAL REPORT * * * * * * * *EXAM: Pelvis AP viewEXAM: Bilateral hips 2 views eachHISTORY: Right hip pain/ Left hip painTECHNIQUE:An AP view of the p kuldip and AP and frog-leg views of the rightand left hip are obtained.FINDINGS:No acute abnormalityof the pelvic bones is noted. No bone lesion isidentified. No acute abnormality of the hip joints is seen.. Shape of thehead of the femora is preserved bilaterally. No bone lesion is noted. Thereis minimal sclerosis of the acetabular roof.IMPRESSIONChanges of very mild degenerative joint disease inthe hipjointsUnFreestone Medical CenterXR LUMBAR SPINE 2 [id number] 20:44:171. Moderate changes of spondylosis at C5-C6 and C6-C72. Changes of mild spondylosis from T6 to T123. Moderate changes of spondylosis at L2-L3 L4-L5 and L5-S14. Bilateral spondylolysis of L4 with grade 1 anterolisthesis of L4 inrelation to L5 * * * * * * * * ORIGINAL REPORT * * * * * * * *EXAM: Cervical spine 2 views EXAM: Thoracic spine 2 views EXAM: Lumbar spine 2 views HISTORY: Pain TECHNIQUE:An AP and 2 lateral views of the cervical spine, thoracic spineand AP and lateral views of the lumbarspine are obtained. FINDINGS: CERVICAL SPINE: Changes of moderate degenerative spondylosis are seen atC5-C6 and C6-C7 in the form of narrowing of the disks, cirrhosis of theadjoining surfaces and large osteophyte formation predominantly anteriorly.Loss of normal cervical lordosis is seen. Prevertebral soft tissues arenormal. THORACIC SPINE: There is very mild old anterior compression of T7.Remainder of the vertebral bodies is normal in height. Endplate osteophyteformation is seen at T6-T7, T7-T8, T8-T9, T9-T10, T10-T11 and T11-T12. LUMBAR SPINE: Mild levoscoliosis of the lumbar spine is noted. 5 lumbarvertebral bodies are seen. There is no evidence of an acute fracture. Disc space narrowing and small osteophyte formation is seen at L2-3. Morethan 50% narrowing of the disc space is seen atL4-L5. Bilateralspondylolysis of L4 is noted with grade 1 anterolisthesis of L4. Minimaldisc space narrowing endplate sclerosis and small osteophyte formation isseen at L5-S1. Hypertrophy of the facet joints is seen at L4-L5 and L5-S1.. [facility], Radiant Results Inft User - 01/12/2019 3:46 PM CDT* * * * * * * * ORIGINAL REPORT * * * * * * * *EXAM: Cervical spine 2 viewsEXAM: Thoracic spine 2 viewsEXAM: Lumbar spine 2 viewsHISTORY: PainTECHNIQUE:An AP and 2 lateral views of the cervical spine, thoracic spineand AP and lateral views of the lumbar spine are obtained.FINDINGS:CERVICAL SPINE: Changes of moderate degenerative spondylosis are seen atC5-C6 and C6-C7 in the form of narrowing of the disks, cirrhosis of theadjoining surfaces and large osteophyte formation predominantly anteriorly.Loss of normal cervical lordosis is seen. Prevertebral soft tissues arenormal.THORACIC SPINE: There is very mild old anterior compression of T7.Remainder of the vertebral bodies is normal in height. Endplate osteophyteformation is seen at T6-T7, T7-T8, T8-T9, T9-T10, T10-T11 and T11-T12.LUMBAR SPINE: Mildlevoscoliosis of the lumbar spine is noted. 5 lumbarvertebral bodies are seen. There is no evidenceof an acute fracture.Disc space narrowing and small osteophyte formation is seen at L2-3. Morethan 50% narrowing of the disc space is seen at L4-L5. Bilateralspondylolysis of L4 is noted with grade 1anterolisthesis of L4. Minimaldisc space narrowing endplate sclerosis and small osteophyte formation isseen at L5-S1. Hypertrophy of the facet joints is seen at L4-L5 and L5-S1..IMPRESSION1. Moderatechanges of spondylosis at C5-C6 and C6-C72. Changes of mild spondylosis from T6 to T123. Moderate changes of spondylosis at L2-L3 L4-L5 and L5-S14. Bilateral spondylolysis of L4 with grade 1 anterolisthesis of L4 inrelation to L5 [facility] 2 [id number] 20:44:171. Moderate changes of spondylosis at C5-C6 and C6-C72. Changes of mild spondylosis from T6 to T123. Moderate changes of spondylosis at L2-L3 L4-L5 and L5-S14. Bilateral spondylolysis of L4 with grade 1 anterolisthesis of L4 inrelation to L5 * * * * * * * * ORIGINAL REPORT * * * * * * * *EXAM: Cervical spine 2 views EXAM: Thoracic spine 2 views EXAM: Lumbar spine 2 views HISTORY: Pain TECHNIQUE:An AP and 2 lateral views of the cervical spine, thoracic spineand AP and lateral views of the lumbarspine are obtained. FINDINGS: CERVICAL SPINE: Changes of moderate degenerative spondylosis are seenatC5-C6 and C6-C7 in the form of narrowing of the disks, cirrhosis of theadjoining surfaces and large osteophyte formation predominantly anteriorly.Loss of normal cervical lordosis is seen. Prevertebral soft tissues arenormal. THORACIC SPINE: There is very mild old anterior compression of T7.Remainder of the vertebral bodies is normal in height. Endplate osteophyteformation is seen at T6-T7, T7-T8, T8-T9, T9-T10, T10-T11 and T11-T12. LUMBAR SPINE: Mild levoscoliosis of the lumbar spine is noted. 5 lumbarvertebral bodies are seen. There is no evidence of an acute fracture. Disc space narrowingand small osteophyte formation is seen at L2-3. Morethan 50% narrowing of the disc space is seen atL4-L5. Bilateralspondylolysis of L4 is noted with grade 1 anterolisthesis of L4. Minimaldisc space narrowing endplate sclerosis and small osteophyte formation isseen at L5-S1. Hypertrophy of the facet joints is seen at L4-L5 and L5-S1.. [facility], Radiant Results Inft User - 01/12/2019 3:46 PM CDT* * * * * * * * ORIGINAL REPORT * * * * * * * *EXAM: Cervical spine 2 viewsEXAM: Thoracic spine 2 viewsEXAM: Lumbar spine 2 viewsHISTORY: PainTECHNIQUE:An AP and 2 lateral views of the cervical spine, thoracic spineand AP and lateral views of the lumbar spine are obtained.FINDINGS:CERVICAL SPINE: Changes of moderate degenerative spondylosis are seen atC5-C6 and C6-C7 in the form of narrowing of the disks, cirrhosis of theadjoining surfaces and large osteophyte formation predominantly anteriorly.Loss of normal cervical lordosis is seen. Prevertebral soft tissues arenormal.THORACIC SPINE: There is very mild old anterior compression of T7.Remainder of the vertebral bodies is normal in height. Endplate osteophyteformation is seen at T6-T7, T7-T8, T8-T9, T9-T10, T10-T11 and T11- T12.LUMBAR SPINE: Mildlevoscoliosis of the lumbar spine is noted. 5 lumbarvertebral bodies are seen. There is no evidenceof an acute fracture.Disc space narrowing and small osteophyte formation is seen at L2-3. Morethan 50% narrowing of the disc space is seen at L4-L5. Bilateralspondylolysis of L4 is noted with grade 1anterolisthesis of L4. Minimaldisc space narrowing endplate sclerosis and small osteophyte formation isseen at L5-S1. Hypertrophy of the facet joints is seen at L4-L5 and L5-S1..IMPRESSION1. Moderatechanges of spondylosis at C5-C6 and C6-C72. Changes of mild spondylosis from T6 to T123. Moderate changes of spondylosis at L2-L3 L4-L5 and L5-S14. Bilateral spondylolysis of L4 with grade 1 anterolisthesis of L4 inrelation to L5 [facility] SPINE THORACIC 2 [id number] 20:44:171. Moderate changes of spondylosis at C5-C6 and C6-C72. Changes of mild spondylosis from T6 to T123. Moderate changes of spondylosis at L2-L3 L4-L5 and L5-S14. Bilateral spondylolysis of L4 with grade 1 anterolisthesis of L4 inrelation to L5 * * * * * * * * ORIGINAL REPORT * * * * * * * *EXAM: Cervical spine 2 views EXAM: Thoracic spine 2 views EXAM: Lumbar spine 2 views HISTORY: Pain TECHNIQUE:An AP and 2 lateral views of the cervical spine, thoracic spineand AP and lateral views of the lumbarspine are obtained. FINDINGS: CERVICAL SPINE: Changes of moderate degenerative spondylosis are seenatC5-C6 and C6-C7 in the form of narrowing of the disks, cirrhosis of theadjoining surfaces and large osteophyte formation predominantly anteriorly.Loss of normal cervical lordosis is seen. Prevertebral soft tissues arenormal. THORACIC SPINE: There is very mild old anterior compression of T7.Remainder of the vertebral bodies is normal in height. Endplate osteophyteformation is seen at T6-T7, T7-T8, T8-T9, T9-T10, T10-T11 and T11-T12. LUMBAR SPINE: Mild levoscoliosis of the lumbar spine is noted. 5 lumbarvertebral bodies are seen. There is no evidence of an acute fracture. Disc space narrowingand small osteophyte formation is seen at L2-3. Morethan 50% narrowing of the disc space is seen atL4-L5. Bilateralspondylolysis of L4 is noted with grade 1 anterolisthesis of L4. Minimaldisc space narrowing endplate sclerosis and small osteophyte formation isseen at L5-S1. Hypertrophy of the facet joints is seen at L4-L5 and L5-S1.. [facility], Radiant Results Inft User - 01/12/2019 3:46 PM CDT* * * * * * * * ORIGINAL REPORT * * * * * * * *EXAM: Cervical spine 2 viewsEXAM: Thoracic spine 2 viewsEXAM: Lumbar spine 2 viewsHISTORY: PainTECHNIQUE:An AP and 2 lateral views of the cervical spine, thoracic spineand AP and lateral views of the lumbar spine are obtained.FINDINGS:CERVICAL SPINE: Changes of moderate degenerative spondylosis are seen atC5-C6 and C6-C7 in the form of narrowing of the disks, cirrhosis of theadjoining surfaces and large osteophyte formation predominantly anteriorly.Loss of normal cervical lordosis is seen. Prevertebral soft tissues arenormal.THORACIC SPINE: There is very mild old anterior compression of T7.Remainder of the vertebral bodies is normal in height. Endplate osteophyteformation is seen at T6-T7, T7-T8, T8-T9, T9-T10, T10-T11 and T11- T12.LUMBAR SPINE: Mildlevoscoliosis of the lumbar spine is noted. 5 lumbarvertebral bodies are seen. There is no evidenceof an acute fracture.Disc space narrowing and small osteophyte formation is seen at L2-3. Morethan 50% narrowing of the disc space is seen at L4-L5. Bilateralspondylolysis of L4 is noted with grade 1anterolisthesis of L4. Minimaldisc space narrowing endplate sclerosis and small osteophyte formation isseen at L5-S1. Hypertrophy of the facet joints is seen at L4-L5 and L5-S1..IMPRESSION1. Moderatechanges of spondylosis at C5-C6 and C6-C72. Changes of mild spondylosis from T6 to T123. Moderate changes of spondylosis at L2-L3 L4-L5 and L5-S14. Bilateral spondylolysis of L4 with grade 1 anterolisthesis of L4 inrelation to L5 [facility] Notes Date/Time Note Provider Source [facility]2024-04-15 00:00:00 Magan [facility]
[2024-01-21] MEDS ORDERED: OXYMETAZOLINE HCL 0.05% 15ML NAS ONE (14:12)
--- NOTE | 2024-01-21 14:52 | EDPHYS ---
Physician Documentation [facility] Name: Laura Amador Age: 73 yrs Sex: Female : 1950 Arrival Date: 01/21/2024 Time: 13:45 Bed 9 Private MD: ED Physician Kailey Prince HPI: 01/20 14:49 This 73 yrs old Female presents to ER via Ambulatory with complaints of Nose Bleed. sp3 14:49 73-year-old female with history of hypertension, hypothyroidism, prior right nasal sp3 surgery for mass removal now presents epistaxis on the right nose since a.m. today. No trauma reported. No bleeding in any other sites and patient is not on any antiplatelet agents or anticoagulants. Dr. Rush is her ENT and did not have any appointments available for today so she presents to the ED for further evaluation.. 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 - Infectious Disease History:: Denies. - Social history:: Smoking status: Patient denies any tobacco usage or history of. ROS: 14:50 Constitutional: Negative for fever, chills, and weight loss, Eyes: Negative for injury, sp3 pain, redness, and discharge, Neck: Negative for injury, pain, and swelling, Cardiovascular: Negative for chest pain, palpitations, and edema, Respiratory: Negative for shortness of breath, cough, wheezing, and pleuritic chest pain, Abdomen/GI: Negative for abdominal pain, nausea, vomiting, diarrhea, and constipation, Back: Negative for injury and pain, MS/Extremity: Negative for injury and deformity, Skin: Negative for injury, rash, and discoloration, Neuro: Negative for headache, weakness, numbness, tingling, and seizure, Psych: Negative for depression, anxiety, suicide ideation, homicidal ideation, and hallucinations, Allergy/Immunology: Negative for hives, rash, and allergies, Endocrine: Negative for neck swelling, polydipsia, polyuria, polyphagia, and marked weight changes, Hematologic/Lymphatic: Negative for swollen nodes, abnormal bleeding, and unusual bruising, 14:50 All other systems are negative, Exam: 14:50 Constitutional: This is a well developed, well nourished patient who is awake, alert, sp3 and in no acute distress. Head/Face: Normocephalic, atraumatic. Eyes: Pupils equal round and reactive to light, extra-ocular motions intact. Lids and lashes normal. Conjunctiva and sclera are non-icteric and not injected. Cornea within normal limits. Periorbital areas with no swelling, redness, or edema. Neck: Trachea midline, no thyromegaly or masses palpated, and no cervical lymphadenopathy. Supple, full range of motion without nuchal rigidity, or vertebral point tenderness. No Meningismus. Chest/axilla: Normal chest wall appearance and motion. Nontender with no deformity. No lesions are appreciated. Cardiovascular: Regular rate and rhythm with a normal S1 and S2. No gallops, murmurs, or rubs. Normal PMI, no JVD. No pulse deficits. Respiratory: Lungs have equal breath sounds bilaterally, clear to auscultation and percussion. No rales, rhonchi or wheezes noted. No increased work of breathing, no retractions or nasal flaring. Abdomen/GI: Soft, non-tender, with normal bowel sounds. No distension or tympany. No guarding or rebound. No evidence of tenderness throughout. Back: No spinal tenderness. No costovertebral tenderness. Full range of motion. Skin: Warm, dry with normal turgor. Normal color with no rashes, no lesions, and no evidence of cellulitis. MS/ Extremity: Pulses equal, no cyanosis. Neurovascular intact. Full, normal range of motion. Neuro: Awake and alert, GCS 15, oriented to person, place, time, and situation. Cranial nerves II-XII grossly intact. Motor strength 5/5 in all extremities. Sensory grossly intact. Cerebellar exam normal. Normal gait. 14:50 ENT: Fresh clots in the right knee are noted. No significant or brisk bleeding.. Vital Signs: 13:50 BP 171 / 101; Pulse 76; Resp 17 S; Temp 98.6(O); Pulse Ox 97% on R/A; Weight 99.79 kg kc6 (R); Height 5 ft. 2 in. (R); Pain 0/10; 15:02 BP 148 / 96; Pulse 61; Resp 16; Temp 98.1; Pulse Ox 96% on R/A; me1 13:50 Body Mass Index 40.24 (99.79 kg, 157.48 cm) kc6 13:50 Pain Scale: Adult kc6 MDM: 13:59 Patient medically screened. sp3 14:50 Data reviewed: vital signs, nurses notes. ED course: 73-year-old female with epistaxis sp3 in the right nare. Likely spontaneous in nature and I am not highly suspicious of any bleeding discrepancy or disorder or any direct trauma. Bleeding was able to be controlled with Afrin no spray and direct pressure. No nasal trumpet was required. We will safely discharge patient home at this time with follow-up to her ENT for further evaluation and potential scope.. Administered Medications: 14:15 Drug: Oxymetazoline Intranasal Drops (0.05 %) 2 sprays Intranasal once; in each nare me1 Route: Intranasal; Site: both nares; 14:29 Follow up: Response: No adverse reaction; Other; Other: nose bleed has stopped as of me1 now. Disposition Summary: 01/21/24 14:52 Discharge Ordered Notes: Location: Home sp3 Condition: Stable sp3 Diagnosis - Epistaxis, resolved sp3 Followup: sp3 - With: Lucina Rush MD - When: Upon discharge from the Emergency Department - Reason: Recheck today's complaints, Continuance of care Discharge Instructions: - Discharge Summary Sheet sp3 - Nosebleed, Adult sp3 Forms: - Medication Reconciliation Form sp3 - Antibiotic Education sp3 - Prescription Opioid Use sp3 - Patient Portal Instructions sp3 - Leadership Thank You Letter sp3 Signatures: Kailey Prince MD MD sp3 Priti Cortes RN RN kc6 Masha Bear RN RN me1
--- NOTE | 2024-01-21 14:52 | ER ---
Nurse's Notes [facility] Name: Laura Amador Age: 73 yrs Sex: Female : 1950 Arrival Date: 01/21/2024 Time: 13:45 Bed 9 Private MD: Diagnosis: Epistaxis, resolved Presentation: 01/20 13:50 Chief complaint: Patient states: VÍCTOR nose bleed since 0600. states she has tried kc6 multiple things all day but her daughter told her to come in. Coronavirus screen: At this time, the client does not indicate any symptoms associated with coronavirus-19. Ebola Screen: No symptoms or risks identified at this time. Initial Sepsis Screen: Does the patient meet any 2 criteria? No. Patient's initial sepsis screen is negative. Does the patient have a suspected source of infection? No. Patient's initial sepsis screen is negative. Risk Assessment: Do you want to hurt yourself or someone else? Patient reports no desire to harm self or others. Onset of symptoms was January 21, 2024. 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 - Infectious Disease History:: Denies. - Social history:: Smoking status: Patient denies any tobacco usage or history of. Screenin:[facility] ED Fall Risk Assessment (Adult) History of falling in the last 3 months, me1 including since admission No falls in past 3 months (0 pts) Confusion or Disorientation No (0 pts) Intoxicated or Sedated No (0 pts) Impaired Gait No (0 pts) Mobility Assist Device Used No (0 pt) Altered Elimination No (0 pt) Score/Fall Risk Level 0 - 2 = Low Risk Maintained a safe environment, Provided non-skid footwear, Hourly rounding (assess needs \T\ fall precautionary measures) done. Abuse screen: Denies threats or abuse. Nutritional screening: No deficits noted. Tuberculosis screening: No symptoms or risk factors identified. Assessment: 14:17 General: Appears comfortable, well groomed, well developed, well nourished, Behavior is me1 calm, cooperative, appropriate for age, Reports VÍCTOR nose bleed since 0600. states she has tried multiple things without any results. Pain: Denies pain. Neuro: Level of Consciousness is awake, alert, obeys commands, Oriented to person, place, time, situation, Appropriate for age. Cardiovascular: Patient's skin is warm and dry. Respiratory: Airway is patent Trachea midline Respiratory effort is even, unlabored, Respiratory pattern is regular, symmetrical. GI: No signs and/or symptoms were reported involving the gastrointestinal system. : No signs and/or symptoms were reported regarding the genitourinary system. EENT: Nares with bleeding noted bilaterally since 0600. Derm: Skin is intact, is healthy with good turgor, Skin is pink, warm \T\ dry. Musculoskeletal: No signs and/or symptoms reported regarding the musculoskeletal system. Vital Signs: 13:50 BP 171 / 101; Pulse 76; Resp 17 S; Temp 98.6(O); Pulse Ox 97% on R/A; Weight 99.79 kg kc6 (R); Height 5 ft. 2 in. (R); Pain 0/10; 15:02 BP 148 / 96; Pulse 61; Resp 16; Temp 98.1; Pulse Ox 96% on R/A; me1 13:50 Body Mass Index 40.24 (99.79 kg, 157.48 cm) kc6 13:50 Pain Scale: Adult [facility] ED Course: 13:47 Patient arrived in ED. ra3 13:48 Kailey Prince MD is Attending Physician. sp3 13:52 Triage completed. kc6 13:53 Arm band placed on. kc6 14:02 Masha Bear RN is Primary Nurse. me1 14:51 Lucina Rush MD is Referral Physician. sp3 15:02 Patient did not have IV access during this emergency room visit. me1 15:02 No provider procedures requiring assistance completed. me1 15:03 Patient has correct armband on for positive identification. Bed in low position. Call me1 light in reach. Side rails up X 1. Provided Education on: POC. Verbalized understanding. . Administered Medications: 14:15 Drug: Oxymetazoline Intranasal Drops (0.05 %) 2 sprays Intranasal once; in each nare me1 Route: Intranasal; Site: both nares; 14:29 Follow up: Response: No adverse reaction; Other; Other: nose bleed has stopped as of me1 now. Medication: 14:17 VIS not applicable for this client. me1 Outcome: 14:52 Discharge ordered by . sp3 15:02 Discharged to home ambulatory, with family, [facility] 15:02 Condition: stable 15:02 Discharge instructions given to patient, family, Instructed on discharge instructions, follow up and referral plans. Demonstrated understanding of instructions, follow-up care, 15:03 Patient left the ED. co1 Signatures: Kailey Prince MD MD sp3 Priti Cortes RN RN [facility] Masha Bear RN RN co1 Danni Quesada 3 Corrections: (The following items were deleted from the chart) 14:17 13:50 Chief complaint: Patient states: VÍCTOR nose bleed since 0600. states she has tried me1 multiple things all day but her daughter told her to come in kc6
[2024-01-21 15:12] VITALS: BP 148/96; TEMP 98.1; O2SAT 96
== END 2024-01-21 15:03 | disposition home or self-care (01) ==
LOC: ER 13:45
DX: R04.0 Epistaxis (principal)
CPT/HCPCS: 99283

== ENCOUNTER 2024-01-23 08:18 | Day surgery (SDC) | payer OTHER ==
[2024-01-23] MEDS: OXYMETAZOLINE HCL 0.05% 15ML NAS ONE (08:46)
[2024-01-23] MEDS: Ringers Lactate 1,000 ML IV ONE (09:00)
[2024-01-23 09:16] LABS: Absolute Basophils 0.1 K/uL (0-0.5); Absolute Eosinophils 0.4 K/uL (0-0.5); Absolute Lymphocytes (CBC) 1.7 K/uL (0.7-4.9); Absolute Monocytes 0.5 K/uL (0.1-1.3); Absolute Neutrophil 4.1 K/uL (1.8-8.0); Basophils % 1.1 % (0-1.3); Eosinophils % 5.7 % (0-4.4); Hematocrit 39.1 % (36.0-45.0); Hemoglobin 12.9 g/dL (12.0-15.0); Lymphocytes % 25.2 % (15.3-44.8); MCH 27.1 pg (27.0-35.0); MCHC 32.9 g/dL (32.0-36.0); MCV 82.4 fL (80-100); MPV 8.3 fL (7.6-11.3); Monocytes % 6.9 % (3.3-12.3); Neutrophils % 61.1 % (41.7-73.7); Platelets 229 thou/uL (152-406); RBC Red Blood Cell Count 4.74 M/uL (3.86-4.86); Red Cell Distribution Width 14.5 % (12.1-15.2)
[2024-01-23 09:25] LABS: Anion Gap 7.1 mEq/L (5.0-15.0); Potassium 4.1 mEq/L (3.5-5.1)
[2024-01-23] MEDS ORDERED: propofoL 200 MG/20 ML VIAL IV ONE (11:38)
[2024-01-23] MEDS ORDERED: FENTANYL CITR 100 MCG/2 ML ONE (11:38)
[2024-01-23] MEDS ORDERED: ONDANSETRON 4 MG/2 ML VIAL ONE (11:38)
[2024-01-23] MEDS ORDERED: LIDOCAINE 2% MPF 5 ML VIAL ONE (11:38)
[2024-01-23] MEDS ORDERED: OXYMETAZOLINE HCL 0.05% 15ML NAS ONE (11:43)
[2024-01-23] MEDS ORDERED: EPHEDRINE SULF 50 MG/ML VIAL ONE (12:28)
[2024-01-23] MEDS: CEFAZOLIN SODIUM 2 GM/VIAL ONE (12:30)
[2024-01-23] MEDS: LIDOCAINE HCL/EPINEPHRINE 20 ML MDV ONE (12:35)
[2024-01-23] MEDS ORDERED: dexAMETHasone 10 MG/ML VIAL ONE (12:36)
--- NOTE | 2024-01-23 12:53 | EKG ---
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
[2024-01-23] MEDS: BACITRACIN OINTMENT 14 GM TUBE TOP ONE (12:54)
[2024-01-23 15:00] VITALS: BP 157/67; TEMP 97.2; O2SAT 97
--- NOTE | 2024-01-27 11:20 | OP ---
Date of Procedure: 01/23/2024 Surgeon: DIANA CULLEN Primary Care Physician: Unknown. Preoperative Diagnosis: Right nasal epistaxis-posterior, recurrent. Postoperative Diagnosis: Right nasal epistaxis-posterior, recurrent. Procedure Performed: Bilateral nasal endoscopy with extensive cauterization and packing of right pos terior nasal cavity epistaxis. Anesthesia: General endotracheal anesthesia was administered. Afrin-soaked nasal pledgets were used for vasoconstriction and decongestion. Specimens: None. Findings: Right middle meatal bleeding and blood clots visualized. Complications: None. Disposition: Stable. The patient tolerated the procedure well. 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 The patient developed severe intranasal bleeding invol ving this area that despite pressure she was unable to stop the bleeding for any appreciable amount o f time. Upon examination, I could see a blood clot in the right middle meatus. Thus these were barney cations to bring the patient to the operative suite for the above-mentioned procedure. She understoo d, all questions were answered. Risks versus benefits and complications were explained in detail and a consent form was signed and was placed in the chart. Description Of Procedure: The patient was transferred from the preoperative holding area to the oper ative suite by Department of Anesthesia, placed on the operating room table supine, sedated and intub ated in normal fashion. Table was rotated 180 degrees and Afrin-soaked nasal pledgets were introduce d into bilateral nasal cavities. The patient was prepped and draped. The pledgets were removed and I inserted a 0-degree rigid nasal endoscope into the left nasal cavity back to the posterior choanae. I did not detect any areas of bleeding on this side. The scope was then inserted along the floor o f the right nasal cavity and there was pooling of blood and blood clot noted in the right middle meat us. I removed this clot and there was mild oozing of this area. I did not see any evidence of a rec urrent neoplasm in the area. I cauterized the bleeding with suction Bovie on a setting of 20 for coa gulation and 1 of the cutting. Once hemostasis was achieved, I coated PosiSep hemostatic agent with antibiotic ointment and inserted this into the middle meatus and then I infiltrated the packing with saline. A mustache dressing was placed. She tolerated the procedure well, will be discharged home o n antibiotic and analgesic medication and will follow up in 1 week or sooner if needed. SAURAV/NBA Voice ID: [id number] Report ID: [id number]
== END 2024-01-23 14:35 | disposition home or self-care (01) ==
LOC: OR 08:18
PROVIDERS: ATTEND Otolaryngology Facial Plastic Surgery
PROC: 09JK8ZZ Inspection of Nasal Mucosa and Soft Tissue, Via Natural or Artificial Opening Endoscopic (ICD-10-PCS; principal; 2024-01-23 11:15)
DX: R04.0 Epistaxis (principal); I10 Essential (primary) hypertension
CPT/HCPCS: 93005 ×2; 85025; 80048; 36415; 31238; J2704; J2001; J3010; J1100; J2405; J7120